=== PATIENT | female | born 1950 | race Caucasian/White ===

== ENCOUNTER 2018-01-15 02:00 | Inpatient (IN) | payer OTHER ==
[2018-01-15] MEDS ORDERED: MORPHINE 4 MG/ML SYR ONE ×4 (02:17→07:07)
[2018-01-15] MEDS ORDERED: FAMOTIDINE 20 MG/2 ML VIAL IV ONE (02:17)
[2018-01-15] MEDS ORDERED: ONDANSETRON 4 MG/2 ML VIAL ONE ×2 (02:17→03:10)
[2018-01-15] MEDS ORDERED: NA CHLORIDE 0.9% 500 ML ONE (02:38)
[2018-01-15] MEDS ORDERED: PROMETHAZINE 25 MG/ML VIAL ONE ×2 (02:38→05:01)
[2018-01-15 02:55] LABS: Absolute Lymphocytes (CBC) 4.7 K/uL (0.7-4.9); Absolute Monocytes 1.1 K/uL (0.1-1.3); Absolute Neutrophil 10.6 K/uL (1.8-8.0); Basophils % 0.5 % (0-1.3); Hematocrit 40.5 % (36.0-45.0); Lymphocytes % 27.6 % (15.3-44.8); MCH 27.3 pg (27.0-35.0); MPV 9.6 fL (7.6-11.3); Monocytes % 6.5 % (3.3-12.3)
[2018-01-15 03:06] LABS: Potassium 3.4 mEq/L (3.6-5.0)
[2018-01-15 03:12] LABS: Albumin 4.5 g/dL (3.2-5.5); Bilirubin Direct 0.1 mg/dL (0-0.2); Bilirubin Total 0.4 mg/dL (0.3-1.2); Magnesium 2.1 mg/dL (1.8-2.5); Protein, Total 8.3 g/dL (6.0-8.3)
[2018-01-15] MEDS ORDERED: NA CHLORIDE 0.9% 1,000 ML ONE (03:27)
[2018-01-15 04:55] LABS: Urine Blood TRACE (NEG); Urine Glucose NEGATIVE (NEG); Urine Protein 1+ (NEG); Urine Specific Gravity 1.025 (1.005-1.030)
--- NOTE | 2018-01-15 05:24 | EDPHYS ---
Physician Documentation [facility] Name: Marycruz Crawford Age: 67 yrs Sex: Female : 1950 Arrival Date: 01/15/2018 Time: 02:01 Bed 16 Private MD: ED Physician Francisco Jones HPI: 01/15 02:46 This 67 yrs old Female presents to ER via Wheelchair with complaints of cp Abdominal Pain, Diarrhea, Vomiting. 02:48 The patient presents with abdominal pain in the left lower quadrant. Onset: The cp symptoms/episode began/occurred last night. Associated signs and symptoms: Pertinent positives: nausea, vomiting, and diarrhea, Pertinent negatives: blood in stools, chest pain, constipation, fever, vomiting blood. Historical: - Allergies: 02:31 PENICILLINS; lp1 - Home Meds: 02:31 trazodone 50 mg Oral tab nightly [Active]; [place] 10-325 mg Oral tab 1 tab every 6 hours lp1 [Active]; losartan 50 mg oral tab 1 tab once daily [Active]; cyclobenzaprine 10 mg Oral tab 1 tab 2 times per day [Active]; simvastatin 40 mg Oral tab nightly [Active]; Lorazepam Oral [Active]; - PMHx: 02:31 chronic back pain; Hypertension; Hyperlipidemia; Panic Attacks; lp1 - PSHx: 02:31 Tubal ligation; lp1 - Immunization history:: Adult Immunizations up to date. - Social history:: Smoking status: Patient/guardian denies using tobacco. ROS: 02:50 Constitutional: Positive for poor PO intake, Negative for body aches, chills, fever. cp 02:50 Eyes: Negative for injury, pain, redness, and discharge. cp 02:50 ENT: Negative for drainage from ear(s), ear pain, sore throat, difficulty swallowing, difficulty handling secretions. 02:50 Cardiovascular: Negative for chest pain, palpitations. 02:50 Respiratory: Negative for cough, shortness of breath, wheezing. 02:50 Abdomen/GI: Positive for abdominal pain, nausea, vomiting, diarrhea, of the left lower quadrant, Negative for constipation, hematemesis, black/tarry stool, rectal bleeding. 02:50 Back: Negative for radiated pain. 02:50 : Negative for urinary symptoms. 02:50 Skin: Negative for cellulitis, rash. 02:50 Neuro: Negative for altered mental status, headache, weakness. 02:50 All other systems are negative. Exam: 02:35 ECG was reviewed by the Attending Physician. cp 02:55 Constitutional: The patient appears in no acute distress, alert, awake, cp non-diaphoretic, non-toxic, well developed, well nourished. 02:55 Head/Face: Normocephalic, atraumatic. cp 02:55 Eyes: Periorbital structures: appear normal, Pupils: equal, round, and reactive to light and accomodation, Conjunctiva: normal, no exudate, no injection, Sclera: no appreciated abnormality, Lids and lashes: appear normal, bilaterally. 02:55 ENT: External ear(s): are unremarkable, Nose: is normal, Mouth: Lips: moist, Oral mucosa: moist, Posterior pharynx: Airway: no evidence of obstruction, patent, Uvula: midline, swelling, is not appreciated, erythema, is not appreciated, exudate, is not appreciated. 02:55 Neck: ROM/movement: is normal, is supple, without pain, no range of motions limitations, no meningismus, no nuchal rigidity. 02:55 Chest/axilla: Inspection: normal, Palpation: is normal, no crepitus, no tenderness. 02:55 Cardiovascular: Rate: normal, Rhythm: regular, Pulses: Pulses are 2+ in right radial artery and left radial artery. Edema: is not appreciated, JVD: is not appreciated. 02:55 Respiratory: the patient does not display signs of respiratory distress, Respirations: normal, no use of accessory muscles, no retractions, no splinting, no tachypnea, Breath sounds: are clear throughout, no decreased breath sounds, no stridor, no wheezing. 02:55 Abdomen/GI: Inspection: abdomen appears normal, Bowel sounds: active, all quadrants, Palpation: soft, in all quadrants, severe abdominal tenderness, in the left lower quadrant, rebound tenderness, voluntary guarding, is elicited in the left lower quadrant. 02:55 Back: pain, is absent, ROM is normal. 02:55 Skin: cellulitis, is not appreciated, no rash present. 02:55 Neuro: Orientation: to person, place \T\ time. Mentation: lucid, able to follow commands, Cerebellar function: is grossly normal, Motor: moves all fours, strength is normal, Sensation: no obvious gross deficits. Vital Signs: 02:28 BP 195 / 95; Pulse 81; Resp 18; Temp 98.0(A); Pulse Ox 99% on R/A; Weight 71.21 kg; lp1 Height 5 ft. 1 in. (154.94 cm); Pain 10/10; 03:28 BP 185 / 92; Pulse 62; Resp 14; Pulse Ox 97% ; Pain 10/10; bs1 04:28 BP 185 / 108; Pulse 69; Resp 14; Pulse Ox 99% on 2 lpm NC; Pain 0/10; bs1 04:44 BP 191 / 96; Pulse 60; Resp 14; Pulse Ox 95% on 2 lpm NC; Pain 10/10; bs1 05:00 BP 176 / 116; Pulse 96; Resp 14; Pulse Ox 96% on R/A; Pain 10/10; bs1 05:30 BP 197 / 113; Pulse 76; Resp 13; Pulse Ox 100% ; Pain 8/10; bs1 06:13 BP 157 / 95; Pulse 92; Resp 14; Pulse Ox 98% on R/A; Pain 9/10; bs1 02:28 Body Mass Index 29.66 (71.21 kg, 154.94 cm) lp1 MDM: 02:04 Patient medically screened. cp 03:00 Differential diagnosis: appendicitis, bowel obstruction, diverticulitis, gastritis, GI cp Bleed, pancreatitis, Peptic Ulcer Disease, Perf. Duodenal Ulcer, Perf. Gastric Ulcer, Pyelonephritis, Ureterolithiasis, urinary tract infection. 06:19 Differential diagnosis: cholecystitis. Data reviewed: vital signs, nurses notes. tw4 Counseling: I had a detailed discussion with the patient and/or guardian regarding: the historical points, exam findings, and any diagnostic results supporting the discharge/admit diagnosis. Physician consultation: German Darby MD regarding admission, patient's condition, and will see patient in ED. Admission orders: after a detailed discussion of the patient's condition and case, the admit orders are written by me. Other consultation: Dr devine consulted in regards to patients condition. 01/15 02:13 Order name: Amylase, Serum; Complete Time: 03:29 cp 01/15 02:13 Order name: Basic Metabolic Panel; Complete Time: 03:29 cp 01/15 03:29 Interpretation: Normal except: K 3.4; GLUC 138; CRE 1.12; GFR 49. cp 01/15 02:13 Order name: CBC with Diff; Complete Time: 03:11 cp 01/15 03:11 Interpretation: Normal except: WBC 17.0; MCHC 31.7; NEUT A 10.6. cp 01/15 02:13 Order name: Creatinine for Radiology; Complete Time: 03:11 cp 01/15 03:30 Interpretation: Abnormal: CRE 1.10; GFR 50. cp 01/15 02:13 Order name: Hepatic Function; Complete Time: 03:29 cp 01/15 03:29 Interpretation: Normal except: SGOT 48; ALK 176; GLOB 3.8. cp 01/15 02:13 Order name: Lipase; Complete Time: 03:29 cp 01/15 03:29 Interpretation: LIP 19; Reviewed. cp 01/15 02:13 Order name: Urine Microscopic Only; Complete Time: 06:26 cp 01/15 02:13 Order name: CT Abd/Pelvis - W/Contrast cp 01/15 02:14 Order name: XRAY Chest (1 view) cp 01/15 02:14 Order name: Troponin I; Complete Time: 06:26 cp 01/15 02:14 Order name: Magnesium; Complete Time: 03:29 cp 01/15 03:46 Order name: Urine Dipstick--Ancillary (enter results); Complete Time: 05:03 rg2 01/15 05:03 Interpretation: Normal except: UBLD TRACE; UPROT 1+. tw4 01/15 07:17 Order name: Chest Single View XRAY lp1 01/15 08:37 Order name: RAD EDMS 01/15 02:13 Order name: IV Saline Lock; Complete Time: 02:45 cp 01/15 02:13 Order name: Labs collected and sent; Complete Time: 02:45 cp 01/15 02:13 Order name: Urine Dipstick-Ancillary (obtain specimen); Complete Time: 03:46 cp 01/15 02:14 Order name: EKG; Complete Time: 02:29 cp 01/15 02:14 Order name: EKG - Nurse/Tech; Complete Time: 02:32 cp EC:35 Rate is 70 beats/min. Rhythm is regular. [place] interval is normal. QRS interval is normal. cp QT interval is normal. Interpreted by me. Reviewed by me. Administered Medications: 02:39 Drug: Zofran 4 mg Route: IVP; Site: left antecubital; bs1 06:50 Follow up: Response: No adverse reaction bs1 02:39 Drug: Pepcid 20 mg Route: IVP; Site: left antecubital; bs1 06:51 Follow up: Response: No adverse reaction bs1 02:39 Drug: morphine 4 mg Route: IVP; Site: left antecubital; bs1 06:51 Follow up: Response: No adverse reaction bs1 02:45 Drug: NS 0.9% 500 ml Route: IV; Rate: bolus; Site: left antecubital; bs1 06:50 Follow up: IV Status: Completed infusion bs1 02:45 Drug: Phenergan 25 mg Route: IVP; Site: left antecubital; bs1 06:49 Follow up: Response: No adverse reaction bs1 03:12 Drug: Zofran 4 mg Route: IVP; Site: left antecubital; bs1 06:49 Follow up: Response: No adverse reaction bs1 03:32 Drug: NS 0.9% 1000 ml Route: IV; Rate: 125 ml/hr; Site: left antecubital; bs1 06:48 Follow up: IV Status: Infusion continued upon admission bs1 06:50 Follow up: IV Status: Completed infusion bs1 03:32 Drug: morphine 4 mg Route: IVP; Site: left antecubital; bs1 06:49 Follow up: Response: No adverse reaction bs1 05:10 Drug: morphine 4 mg Route: IVP; Site: left antecubital; bs1 07:11 Follow up: Response: No adverse reaction bs1 05:10 Drug: Phenergan 12.5 mg Route: IVP; Site: left antecubital; bs1 07:11 Follow up: Response: No adverse reaction bs1 05:36 Drug: hydrALAZINE 10 mg Route: IV; Rate: bolus; Site: left antecubital; bs1 06:23 Follow up: IV Status: Completed infusion bs1 06:15 Drug: Flagyl 500 mg Volume: 100 ml; Route: IVPB; Rate: 200 ml/hr; Infused Over: 30 bs1 mins; Site: left antecubital; 06:48 Follow up: IV Status: Completed infusion bs1 06:18 Drug: LevaQUIN 500 mg Volume: 100 ml; Route: IVPB; Infused Over: 60 mins; Site: left bs1 antecubital; 06:48 Follow up: IV Status: Completed infusion bs1 06:25 Not Given (Physician Discretion): Fleet Enema 133 ml [place] once bs1 06:25 Not Given (Physician Discretion; dr baer): Polyethylene Glycol 8.5 grams PO once; mix bs1 into 4-8 oz. of any hot/cold/room temp. beverage and drink immediately 07:47 Not Given (Physician Discretion; Provider notified of previous morphine doses. ): ae1 morphine 4 mg IVP once 07:55 Drug: fentaNYL (PF) 25 mcg Route: IVP; Site: left antecubital; ae1 08:54 Follow up: Response: Pain is unchanged, physician notified; Receiving nurse notified of ae1 no decrease in pain. Disposition: 06:16 Co-signature as Attending Physician, Francisco Jones MD I agree with the assessment and tw4 plan of care. Disposition: 01/15/18 05:24 Hospitalization ordered by German Darby for Inpatient Admission. Preliminary diagnosis are Constipation, Vomiting, unspecified. - Bed requested for Telemetry/MedSurg (Inpatient). - Status is Inpatient Admission. ae1 - Condition is Stable. - Problem is new. - Symptoms are unchanged. UTI on Admission? No Signatures: Dispatcher [employer] EDMS Sallie Christie RN RN lp1 Altaf Mckenzie PA PA cp Garcia, Cindy, RN RN Brian Campos RN RN ae1 Nicole Oliver RN RN bs1 Francisco Jones MD MD tw4
--- NOTE | 2018-01-15 05:24 | ER ---
Nurse's Notes [facility] Name: Marycruz Crawford Age: 67 yrs Sex: Female : 1950 Arrival Date: 01/15/2018 Time: 02:01 Bed 16 Private MD: Diagnosis: Constipation;Vomiting, unspecified Presentation: 01/15 02:26 Presenting complaint: Patient states: Nausea/vomiting x4 hours; Patient actively lp1 vomiting during triage; States pain to LLQ, tender to touch on palpation; states cramping. Transition of care: patient was not received from another setting of care. Onset of symptoms was January 14, 2018 at 22:30. Care prior to arrival: None. 02:26 Method Of Arrival: Wheelchair lp1 02:26 Acuity: ALBERTO 3 lp1 Triage Assessment: 02:31 General: Appears uncomfortable, Behavior is anxious, crying, restless. Pain: Complains lp1 of pain in left lower quadrant. GI: Pt is actively vomiting bile. Historical: - Allergies: 02:31 PENICILLINS; lp1 - Home Meds: 02:31 trazodone 50 mg Oral tab nightly [Active]; [place] 10-325 mg Oral tab 1 tab every 6 hours lp1 [Active]; losartan 50 mg oral tab 1 tab once daily [Active]; cyclobenzaprine 10 mg Oral tab 1 tab 2 times per day [Active]; simvastatin 40 mg Oral tab nightly [Active]; Lorazepam Oral [Active]; - PMHx: 02:31 chronic back pain; Hypertension; Hyperlipidemia; Panic Attacks; lp1 - PSHx: 02:31 Tubal ligation; lp1 - Immunization history:: Adult Immunizations up to date. - Social history:: Smoking status: Patient/guardian denies using tobacco. Screenin:32 Abuse screen: Denies threats or abuse. Denies injuries from another. Nutritional lp1 screening: No deficits noted. Tuberculosis screening: No symptoms or risk factors identified. Fall Risk None identified. Assessment: 02:50 General: Appears uncomfortable, ill, Behavior is anxious, crying. Pain: Complains of bs1 pain in bilateral lower abdomen Pain does not radiate. Pain currently is 10 out of 10 on a pain scale. Quality of pain is described as stabbing. Neuro: Level of Consciousness is awake, alert, Oriented to person, place, time, Regional Branch Manager are equal bilaterally Reports blurred vision difficulty swallowing dizziness, headache numbness. Cardiovascular: Denies chest pain, palpitations, shortness of breath, Heart tones S1 S2 present Capillary refill < 3 seconds Patient's skin is warm and dry. Respiratory: Airway is patent Trachea midline Respiratory effort is even, unlabored, Respiratory pattern is regular, symmetrical, Breath sounds are clear bilaterally. GI: Abdomen is round non-distended, Bowel sounds hypoactive in right upper quadrant, left upper quadrant, right lower quadrant and left lower quadrant Abdomen is tender to palpation X 4 quads. Reports lower abdominal pain, diarrhea, nausea, vomiting. : Reports incontinence. EENT: No deficits noted. No signs and/or symptoms were reported regarding the EENT system. Derm: No deficits noted. No signs and/or symptoms reported regarding the dermatologic system. Musculoskeletal: Circulation, motion, and sensation intact. Capillary refill < 3 seconds, Range of motion: intact in all extremities. 03:00 Reassessment: Applied 2L NC, patient desat to low 80's on room air, hx of sleep apnea bs1 and given morphine. Will continue to monitor. 03:20 Reassessment: patient states she is still in pain and unable to drink oral contrast for bs1 CT, informed Provider. 04:20 Reassessment: No changes from previously documented assessment. Patient and/or family bs1 updated on plan of care and expected duration. Pain level reassessed. Patient is alert, oriented x 3, equal unlabored respirations, skin warm/dry/pink. Pending results of CT scan. 05:05 Reassessment: Informed Dr Jones that patients blood pressure is 191/96, 100% on 2L NC, bs1 89 heart rate. C/O pain, yelling out, dry heaving. Dr gave verbal order to give 12.5mg of phenergan and 4mg of Morphine. Order received. 06:25 Reassessment: Patient and/or family updated on plan of care and expected duration. Pain bs1 level reassessed. Patient is alert, oriented x 3, equal unlabored respirations, skin warm/dry/pink. Patient states symptoms have not improved. 06:30 Reassessment: Martin(son)- [phone], Grandson ([phone]). bs1 06:46 Reassessment: Patient on bedside commode having a bowel movement. Patient having watery bs1 stools and x3 golf ball size hard stool. 07:10 Reassessment: at bedside discussing plan of care. Received verbal order for 4 ae1 mg IVP Morphine. Patient states it is too difficult to sit in bed and wishes to sit on the bedside commode at this time. Per , administer pain medication and assist back to bed. 07:12 Reassessment: Report given to HARRIET Torres, patient alert and oriented, still c/o pain, bs1 still on bedside commode. Pending hospitalist to put in orders. 07:39 Reassessment: Patient is struggling to pass stool on bedside commode. Assisted patient ae1 remove hard stool. 08:30 Reassessment: Patient continues to struggle to pass stool, assisted patient to remove ae1 hard stool digitally. 3 large "balls" od stool removed. 08:30 Reassessment: Spoke to via telephone, notified Dr. Darby of previous morphine ae1 doses, new orders received, additional dose of morphine cancelled per . Vital Signs: 02:28 BP 195 / 95; Pulse 81; Resp 18; Temp 98.0(A); Pulse Ox 99% on R/A; Weight 71.21 kg; lp1 Height 5 ft. 1 in. (154.94 cm); Pain 10/10; 03:28 BP 185 / 92; Pulse 62; Resp 14; Pulse Ox 97% ; Pain 10/10; bs1 04:28 BP 185 / 108; Pulse 69; Resp 14; Pulse Ox 99% on 2 lpm NC; Pain 0/10; bs1 04:44 BP 191 / 96; Pulse 60; Resp 14; Pulse Ox 95% on 2 lpm NC; Pain 10/10; bs1 05:00 BP 176 / 116; Pulse 96; Resp 14; Pulse Ox 96% on R/A; Pain 10/10; bs1 05:30 BP 197 / 113; Pulse 76; Resp 13; Pulse Ox 100% ; Pain 8/10; bs1 06:13 BP 157 / 95; Pulse 92; Resp 14; Pulse Ox 98% on R/A; Pain 9/10; bs1 02:28 Body Mass Index 29.66 (71.21 kg, 154.94 cm) lp1 ED Course: 02:01 Patient arrived in ED. ds1 02:04 Altaf Mckenzie PA is PHCP. cp 02:04 Francisco Jones MD is Attending Physician. cp 02:13 Nicole Oliver, HARRIET is Primary Nurse. bs1 02:28 Triage completed. lp1 02:28 Arm band placed on left wrist. lp1 02:32 Patient has correct armband on for positive identification. Placed in gown. Bed in low lp1 position. Call light in reach. Pulse ox on. NIBP on. 02:45 X-ray completed. Portable x-ray completed in exam room. Patient tolerated procedure kw well. 02:46 XRAY Chest (1 view) In Process Unspecified. EDMS 02:46 Inserted saline lock: 22 gauge in left antecubital area, using aseptic technique. bs1 04:12 CT Abd/Pelvis - W/Contrast In Process Unspecified. EDMS 05:22 German Darby MD is Hospitalizing Provider. tw4 06:15 NGT: inserted 14 Fr. via right nare. verified placement of air over stomach, verified bs1 return of gastric contents, to intermittent suction. Returned gastric contents. Patient tolerated well. 06:41 Radiology exam delayed due to PT NOT ABLE TO DO EXAM AT THIS TIME. NURSE WILL CALL WHEN kw READY. 07:16 Radiology exam delayed due to PT STILL UNABLE TO DO EXAM, NURSE STATES NEED TO GIVE jb2 PAIN MEDS AND PT STILL ON BEDSIDE COMMODE. 08:12 X-ray completed. Portable x-ray completed in exam room. Patient tolerated procedure sw well. 08:46 No provider procedures requiring assistance completed. Patient admitted, IV remains in ae1 place. Administered Medications: 02:39 Drug: Zofran 4 mg Route: IVP; Site: left antecubital; bs1 06:50 Follow up: Response: No adverse reaction bs1 02:39 Drug: Pepcid 20 mg Route: IVP; Site: left antecubital; bs1 06:51 Follow up: Response: No adverse reaction bs1 02:39 Drug: morphine 4 mg Route: IVP; Site: left antecubital; bs1 06:51 Follow up: Response: No adverse reaction bs1 02:45 Drug: NS 0.9% 500 ml Route: IV; Rate: bolus; Site: left antecubital; bs1 06:50 Follow up: IV Status: Completed infusion bs1 02:45 Drug: Phenergan 25 mg Route: IVP; Site: left antecubital; bs1 06:49 Follow up: Response: No adverse reaction bs1 03:12 Drug: Zofran 4 mg Route: IVP; Site: left antecubital; bs1 06:49 Follow up: Response: No adverse reaction bs1 03:32 Drug: NS 0.9% 1000 ml Route: IV; Rate: 125 ml/hr; Site: left antecubital; bs1 06:48 Follow up: IV Status: Infusion continued upon admission bs1 06:50 Follow up: IV Status: Completed infusion bs1 03:32 Drug: morphine 4 mg Route: IVP; Site: left antecubital; bs1 06:49 Follow up: Response: No adverse reaction bs1 05:10 Drug: morphine 4 mg Route: IVP; Site: left antecubital; bs1 07:11 Follow up: Response: No adverse reaction bs1 05:10 Drug: Phenergan 12.5 mg Route: IVP; Site: left antecubital; bs1 07:11 Follow up: Response: No adverse reaction bs1 05:36 Drug: hydrALAZINE 10 mg Route: IV; Rate: bolus; Site: left antecubital; bs1 06:23 Follow up: IV Status: Completed infusion bs1 06:15 Drug: Flagyl 500 mg Volume: 100 ml; Route: IVPB; Rate: 200 ml/hr; Infused Over: 30 bs1 mins; Site: left antecubital; 06:48 Follow up: IV Status: Completed infusion bs1 06:18 Drug: LevaQUIN 500 mg Volume: 100 ml; Route: IVPB; Infused Over: 60 mins; Site: left bs1 antecubital; 06:48 Follow up: IV Status: Completed infusion bs1 06:25 Not Given (Physician Discretion): Fleet Enema 133 ml [place] once bs1 06:25 Not Given (Physician Discretion; dr baer): Polyethylene Glycol 8.5 grams PO once; mix bs1 into 4-8 oz. of any hot/cold/room temp. beverage and drink immediately 07:47 Not Given (Physician Discretion; Provider notified of previous morphine doses. ): ae1 morphine 4 mg IVP once 07:55 Drug: fentaNYL (PF) 25 mcg Route: IVP; Site: left antecubital; ae1 08:54 Follow up: Response: Pain is unchanged, physician notified; Receiving nurse notified of ae1 no decrease in pain. Intake: Outcome: 05:24 Decision to Hospitalize by Provider. tw4 08:45 Patient left the ED. ae1 08:46 Admitted to Tele accompanied by nurse, via stretcher, room 425, with chart, Report ae1 called to Luma , receiving nurse. 08:46 Condition: stable 08:46 Instructed on the need for admit, Demonstrated understanding of instructions. Signatures: Dispatcher [employer] EDMS Chintan Alcantar Demi ds1 Ilsa Bacon Laura, RN RN lp1 Mily Keller Corey, PA PA cp Elliott, Andrea, RN RN ae1 Nicole Oliver RN RN bs1 Francisco Jones MD MD tw4 Corrections: (The following items were deleted from the chart) 05:13 03:20 Reassessment: patient states she is still in pain and unable to drinl oral bs1 contrast for CT, informed Provider. bs1
[2018-01-15] MEDS ORDERED: HYDRALAZINE HCL 20 MG/ML VIAL ONE (05:34)
[2018-01-15] MEDS ORDERED: FLEET ENEMA ADULT PR ONE (05:39)
[2018-01-15] MEDS ORDERED: METRONIDAZOLE 500mg IVPB 500 MG/100 ML BAG IV ONE (05:40)
[2018-01-15] MEDS ORDERED: Levofloxacin500mg IV 500 MG/100 ML BAG IV ONE (05:40)
[2018-01-15 05:47] LABS: Urine Bacteria <20 /HPF (<20); Urine Culture Reflex Order NOT NEEDED; Urine RBC <5 /HPF (NONE SEEN)
[2018-01-15] MEDS ORDERED: MAGNESIUM HYDROXIDE 8% 30 ML PO PRN (06:34)
[2018-01-15] MEDS ORDERED: clonazePAM 1 MG TAB PO PRN (06:37)
--- NOTE | 2018-01-15 06:55 | EKG ---
Test Date: 2018-01-15 Test Time: 02:27:04 Balance Sheet Analyst: JACINTO MEASUREMENT RESULTS: Intervals: Rate: 70 MS: 160 QRSD: 94 QT: 402 QTc: 434 Hillister: P: 45 MS: 160 QRS: -14 T: -20 INTERPRETIVE STATEMENTS: Normal sinus rhythm Moderate voltage criteria for LVH, may be normal variant Borderline ECG Compared to ECG 03/07/2015 19:08:35 Left ventricular hypertrophy now present Electronically Signed On 01-15-18 06:54:51 CDT by Maximo Salazar
[2018-01-15] MEDS: NA CHLORIDE 0.9% 1,000 ML IV SCH ×2 (07:00→17:36)
[2018-01-15] MEDS ORDERED: MINERAL OIL 30 ML UCUP FT ONE (07:37)
--- NOTE | 2018-01-15 07:45 | P.HP ---
Certification for Inpatient Patient admitted to: Inpatient With expected LOS: >2 Midnights Patient will require the following post-hospital care: None Practitioner: I am a practitioner with admitting privileges, knowledge of patient current condition, hospital course, and medical plan of care. Services: Services provided to patient in accordance with Admission requirements found in Title 42 Section 412.3 of the Code of Federal Regulations Patient History Date of Service: 01/15/18 Reason for admission: Abdominal pain/severe constipation History of Present Illness: Patient is a 67-year-old female with a history of chronic pain and takes 4-6 hydrocodone for pain daily. Patient states she also has irritable bowel syndrome. She waxes between constipation and diarrhea. Over the last few days she was having a hard time moving her bowels. They she started having diarrhea. She felt as if there was a hard stool that was not able to pass. She came into the emergency room for further evaluation. In the emergency room she had a CT of the abdomen and pelvis which revealed a colitis and severe constipation. Patient had a lot of stool. Emergency room physician spoke with surgery who recommended GI consultation. Patient was not given any medications except for pain in the emergency room. Will go ahead and start her on some mineral oil to the NG tube the will see if this helps err pass her stool. She may need to be disimpacted. Obtain most of the history while she was sitting on the bedside commode and she refused to get up because the pain was so severe. She has had an NG-tube placed which is to low intermittent wall suctioning. I asked the emergency room nurses to give her some pain medication and to get her back in bed to where she can be better assessed. Allergies aspirin Allergy (Intermediate, Verified 03/09/15 02:36) Nausea/Vomiting Penicillins Allergy (Intermediate, Verified 03/09/12 19:24) Hives Home Medications: Benzonatate [Tessalon Perle*] 200 mg PO TIDP PRN 03/08/15 Cyclobenzaprine [Flexeril*] 10 mg PO BEDTIME PRN PRN 03/08/15 Escitalopram [Lexapro*] 10 mg PO BEDTIME 03/08/15 Levothyroxine [Synthroid*] 50 mcg PO DAILY 03/08/15 Lisinopril [Prinivil*] 20 mg PO DAILY 03/08/15 Losartan Potassium [Cozaar*] 50 mg PO DAILY 03/08/15 Benzonatate [Tessalon Perle*] 200 mg PO TID PRN #60 cap 03/11/15 Clonazepam [Klonopin*] 1 mg PO BIDP PRN #60 tab 03/11/15 Levofloxacin [Levaquin] 500 mg PO DAILY #5 tab 03/11/15 Methylprednisolone [Medrol] 4 mg PO DAILY #1 tab 03/11/15 Promethazine HCl/Codeine [Promethazine-Codeine Syrup] 5 ml PO Q6HP PRN #150 syrup 03/11/15 - Past Medical/Surgical History Diabetic: No -: depression -: HTN -: hypothyroidism -: Irritable bowel syndrome -: tonsillectomy -: nose sx -: tubal ligation - Family History Father Family History: Reviewed- Non-Contributory - Social History Smoking Status: Never smoker Alcohol use: No CD- Drugs: No Review of Systems 10-point ROS is otherwise unremarkable Physical Examination - Vital Signs Temperature: 98 F Blood Pressure: 140/70 Pulse: 120 Respirations: 18 Pulse Ox (%): 96 - Physical Exam General: Alert, In no apparent distress, Oriented x3 HEENT: Atraumatic, Normocephalic Neck: Supple, 2+ carotid pulse no bruit, JVD not distended, No Thyromegaly, No LAD Respiratory: Clear to auscultation bilaterally, Normal air movement Cardiovascular: Regular rate/rhythm, Normal S1 S2, No murmurs Gastrointestinal: Normal bowel sounds, Hypoactive, Soft and benign, Non- distended, No tenderness Musculoskeletal: No clubbing, No swelling, No erythema Integumentary: No rashes, No erythema, No warmth Neurological: Normal speech, Normal strength at 5/5 x4 extr, Normal tone, Sensation intact, Cranial nerves 3-12 intact, Normal affect Lymphatics: No axilla or inguinal lymphadenopathy - Studies Laboratory Data (last 24 hrs) 01/15/18 02:30: Troponin I 0.06 H 01/15/18 02:30: Creatinine 1.10 H 01/15/18 02:30: WBC 17.0 H, Hgb 12.8, Hct 40.5, Plt Count 356 01/15/18 02:30: Sodium 137, Potassium 3.4 L, BUN 9, Creatinine 1.12 H, Glucose 138 H, Magnesium 2.1, Total Bilirubin 0.4, AST 48 H, ALT 35, Alkaline Phosphatase 176 H, Amylase 63, Lipase 19 L Assessment & Plan - Problems (Diagnosis) (1) Colitis Current Visit: Yes Status: Acute (2) Fecal impaction of colon Current Visit: Yes Status: Acute (3) Abdominal pain Current Visit: Yes Status: Acute (4) Irritable bowel syndrome Current Visit: Yes Status: Acute (5) Chronic pain disorder Current Visit: Yes Status: Acute - Plan 1. Continue with IV hydration 2. Continue with IV antibiotics 3. Continue with pain control 4. NPO 5. GI & general surgery consultation; mineral oil placed per NG tube 6. Serial H&H, and we will monitor CBC, BMP, LFTs and lipase along with electrolytes. 7. GI and DVT prophylaxis - Advance Directives Does patient have a Living Will: No Does patient have a Durable POA for Healthcare: No - Code Status/Comfort Care Code Status Assessed: Yes Code Status: Full Code Critical Care: No Time Spent Managing PTS Care (In Minutes): 50
--- NOTE | 2018-01-15 08:29 | RAD REPORT ---
EXAM DESCRIPTION: CT - Abdomen Pelvis W Contrast - 01/15/2018 5:55 am CLINICAL HISTORY: Abdominal pain, left lower quadrant pain A preliminary written report was provided at the time of the study, and the report was reviewed prio r to final dictation. COMPARISON: CT study March 2015 TECHNIQUE: Biphasic, helical CT imaging of the abdomen and pelvis was performed following 100 ml non -ionic IV contrast. No oral contrast administered. All CT scans are performed using dose optimization technique as appropriate and may include automated exposure control or mA/KV adjustment according to patient size. FINDINGS: No suspicious findings in the lung bases. No pericardial effusion. Liver shows a mild fatty infiltration pattern with no focal liver lesion. Spleen and pancreas without acute finding. Gallbladder and biliary tree are also without suspicious finding. Symmetric renal function is seen with no hydronephrosis or suspicious renal mass. No pyelonephritis o r acute finding. No urinary bladder abnormality. Uterus and ovaries show no suspicious findings. N o adrenal abnormality. No gastric dilatation or gastric wall thickening. Acute small bowel process is not identified. The ap pendix is prominent at 8 mm. No adjacent inflammatory stranding. Appendicitis or other acute appendix process is not suspected. The patient has a large stool volume throughout the colon. Colon is disten ded but not abnormally dilated. The large stool volume pattern is not significantly different from th e comparison study. There is circumferential wall thickening at the ascending-hepatic flexure junctio n. There is a trace amount of stranding in the adjacent fat. Focal colitis is favored over malignancy . Follow-up colonoscopy after medical management and an adequate bowel cleansing will likely be neede d. No free air, free fluid or pneumatosis. No other areas of focal inflammatory stranding. No hernia, m ass or bulky lymphadenopathy. No suspicious bony findings. IMPRESSION: Circumferential wall thickening of the colon at the ascending hepatic flexure junction. A focal mild colitis is favored over peristalsis artifact or colon mass. Follow-up colonoscopy after medical management an adequate bowel cleansing would be recommended. The appendix is prominent but appendicitis is not suspected. Patient overall has a large stool volume distending the colon. This is probably a chronic constipatio n. A similar pattern was seen in 2014. No acute process. Mild fatty infiltration of the liver.
--- NOTE | 2018-01-15 08:31 | RAD REPORT ---
EXAM DESCRIPTION: RAD - Chest Single View - 01/15/2018 2:46 am CLINICAL HISTORY: Abdominal pain, nausea and vomiting COMPARISON: February 2015 TECHNIQUE: AP portable chest image was obtained 0240 hours . FINDINGS: Lung volumes are low. This accentuates central vasculature and lung markings. No periphera l lung parenchymal process seen and failure or volume overload are not suspected. Trachea is midline. Heart and vasculature are normal. No measurable pleural effusion and no pneumothorax. No gross bony abnormality seen. No acute aortic findings suspected. IMPRESSION: No acute cardiopulmonary process. Shallow inspiration accentuates heart, vasculature and lung markings.
--- NOTE | 2018-01-15 08:37 | RAD REPORT ---
EXAM DESCRIPTION: RAD - Abdomen Single View - 01/15/2018 8:12 am CLINICAL HISTORY: Nasogastric tube placement COMPARISON: None. FINDINGS: NG tube is in place in the left upper quadrant. The tip and side port of the tubing are wi thin the stomach. No bowel obstruction or free air. No suspicious finding in the chest or upper abdomen. IMPRESSION: Satisfactory positioning of NG tube.
[2018-01-15] MEDS ORDERED: LEVOTHYROXINE SOD 0.075 MG TAB PO SCH (09:00)
[2018-01-15] MEDS: ENOXAPARIN 40 MG/0.4 ML SQ SCH (09:00)
[2018-01-15] MEDS: ONDANSETRON 4 MG/2 ML VIAL IV PRN ×2 (09:22→17:36)
[2018-01-15] MEDS ORDERED: PNEUMOCOCCAL VACCINE 0.5 ML IMVAC ONE (11:00)
[2018-01-15] MEDS: LEVOTHYROXINE SOD 0.05 MG TABLET PO SCH (11:22)
[2018-01-15] MEDS: LOSARTAN POTASSIUM 50 MG TABLET PO SCH (11:22)
[2018-01-15] MEDS ORDERED: CYCLOBENZAPRINE 10 MG TAB PO PRN (11:23)
--- NOTE | 2018-01-15 11:31 | P.PN ---
Subjective Date of Service: 01/15/18 Primary Care Provider: Dr. Conner Chief Complaint: Abdominal pain/severe constipation Subjective: Other (Patient has gone to the bathroom multiple times. Patient reports pain but able to ambulate.) Physical Examination - Vital Signs Temperature: 98.6 F Blood Pressure: 118/94 Pulse: 123 Respirations: 18 Pulse Ox (%): 95 - Physical Exam General: Alert, Cooperative HEENT: Atraumatic Neck: Supple Respiratory: Clear to auscultation bilaterally Cardiovascular: Normal pulses, Regular rate/rhythm Gastrointestinal: Normal bowel sounds, Soft and benign, Non-distended, Tenderness (Patient reports pain with palpation everywhere. Pain seems to be out of proportion at times) Musculoskeletal: No erythema, No tenderness, No warmth Integumentary: No tenderness/swelling, No erythema, No warmth, No cyanosis Neurological: Normal speech, Normal strength at 5/5 x4 extr, Normal tone, Abnormal affect (Patient appears very anxious) - Studies Laboratory Data (last 24 hrs) 01/15/18 02:30: Troponin I 0.06 H 01/15/18 02:30: Creatinine 1.10 H 01/15/18 02:30: WBC 17.0 H, Hgb 12.8, Hct 40.5, Plt Count 356 01/15/18 02:30: Sodium 137, Potassium 3.4 L, BUN 9, Creatinine 1.12 H, Glucose 138 H, Magnesium 2.1, Total Bilirubin 0.4, AST 48 H, ALT 35, Alkaline Phosphatase 176 H, Amylase 63, Lipase 19 L Medications List Reviewed: Yes Assessment & Plan - Problems (Diagnosis) (1) Hypertension Current Visit: Yes Status: Chronic Plan: Medications reviewed and restarted. Qualifiers: Hypertension type: essential hypertension Qualified Code(s): I10 - Essential (primary) hypertension (2) Hypothyroidism Current Visit: Yes Status: Chronic Plan: Will continue with her medication. Will check tsh and free T4. Qualifiers: Hypothyroidism type: unspecified Qualified Code(s): E03.9 - Hypothyroidism , unspecified (3) GERD (gastroesophageal reflux disease) Current Visit: Yes Status: Suspected Plan: Will provide PPI. GI consulted to further evaluate Qualifiers: Esophagitis presence: esophagitis presence not specified Qualified Code(s) : K21.9 - Gastro-esophageal reflux disease without esophagitis (4) Abdominal pain Onset Date: 01/15/18 Current Visit: Yes Status: Acute Plan: Abdominal pain likely related to colitis with chronic constipation secondary to pain medication. Patient with history of chronic pain and IBS. Surgery and GI consulted. Patient has NG tube in place. Patient provided mineral oil. Will monitor stool. Patient also on IV antibiotic therapy and IV fluids. Will recheck x-ray in the morning. Will try to limit pain medication. Qualifiers: Abdominal location: generalized Qualified Code(s): R10.84 - Generalized abdominal pain (5) Chronic pain disorder Onset Date: 01/15/18 Current Visit: Yes Status: Chronic Plan: Will provide medication. Patient takes hydrocodone on a regular basis. Patient likely needs to seek chronic pain management as an outpatient. (6) Colitis Onset Date: 01/15/18 Current Visit: Yes Status: Acute Plan: Colitis suspected. Will continue with IV antibiotic therapy and medication. Will monitor closely. GI consulted along with surgery. Await further recommendation. (7) Fecal impaction of colon Onset Date: 01/15/18 Current Visit: Yes Status: Acute Plan: Patient provided medication. Will monitor closely. Likely from chronic pain medication (8) Irritable bowel syndrome Onset Date: 01/15/18 Current Visit: Yes Status: Chronic Plan: Patient reports a history of IBS. GI consulted. Will continue with above plan of care. Qualifiers: Irritable bowel syndrome type: with constipation Qualified Code(s): K58.1 - Irritable bowel syndrome with constipation (9) Hypokalemia Onset Date: 03/08/15 Current Visit: No Status: Acute Plan: Will monitor and replace appropriately. Replacement protocol in place. (10) Dehydration Current Visit: Yes Status: Acute Plan: Will continue IV fluids. Will monitor and adjust appropriately. Replacement protocol in place. (11) Acute renal injury Current Visit: Yes Status: Acute Plan: Likely from volume depletion. Will continue with IV fluids. Will monitor and adjust appropriately. Discharge Plan: Home Plan to discharge in: 72 Hours Time Spent Managing Pts Care (In Minutes): 55
[2018-01-15] MEDS: METRONIDAZOLE 500mg IVPB 500 MG/100 ML BAG IV SCH ×3 (14:03→23:35)
[2018-01-15] MEDS: FENTANYL CITR 100 MCG/2 ML IV PRN ×2 (17:41→20:49)
--- NOTE | 2018-01-15 20:09 | P.CNS ---
Date of Consult: 01/15/18 PC: I was asked to see this 67-year-old female regards to abdominal pain. HPC: Patient presents emergency room with severe abdominal pain for diagnosis and treatment last night. She says that she has been having increasing pain and discomfort in her abdomen. Has not had a bowel movement for a few days. Takes chronic pain medicine for her back. PMH: Hypertension, chronic pain, esophageal reflux PSHx: An 80 SOC: Allergic to aspirin and penicillin SYS REVIEW: No cough, wheeze, shortness of breath. States that she still having occasional episodes of abdominal pain. Prior to this event had been well. No urinary complaint O/E awake vital stable HEENT: Within normal limits Chest: Chest movement equal bilaterally ABD: Soft nontender no guarding or rebound LOCO: Intact DATA: CT scan shows a lot of fecal material particular around the hepatic flexure. IMPRESSION: Abdominal pain with constipation most likely secondary to narcotic use and dehydration PLAN: Patient having bowel movements issues been in the hospital. Has been receiving IV fluids as well as some mineral oil. This will most likely resolve and not require surgical intervention. She will then be followed up by GI. Also pain management physician.
[2018-01-15] MEDS ORDERED: ESCITALOPRAM 20 MG TAB PO SCH (21:00)
[2018-01-16] MEDS: NA CHLORIDE 0.9% 1,000 ML IV SCH ×3 (03:00→23:00)
[2018-01-16] MEDS ORDERED: Levofloxacin500mg IV 500 MG/100 ML BAG IV SCH (05:00)
[2018-01-16] MEDS: METRONIDAZOLE 500mg IVPB 500 MG/100 ML BAG IV SCH ×3 (05:10→17:38)
[2018-01-16] MEDS ORDERED: NA CHLORIDE 0.9% 500 ML IV ONE ×3 (07:32→11:14)
[2018-01-16 07:38] LABS: Absolute Monocytes 2.1 K/uL (0.1-1.3); Absolute Neutrophil 11.9 K/uL (1.8-8.0); Basophils % 0.4 % (0-1.3); Eosinophils % 0.1 % (0-4.4); Hematocrit 48.9 % (36.0-45.0); Lymphocytes % 21.9 % (15.3-44.8); MCH 27.8 pg (27.0-35.0); MCV 85.6 fL (80-100); MPV 10.8 fL (7.6-11.3); Monocytes % 11.6 % (3.3-12.3); RBC Red Blood Cell Count 5.72 M/uL (3.86-4.86)
[2018-01-16 08:52] LABS: Albumin 3.3 g/dL (3.2-5.5); Bilirubin Total 1.2 mg/dL (0.3-1.2); Magnesium 1.9 mg/dL (1.8-2.5); Phosphorus 2.6 mg/dL (2.5-4.3); Protein, Total 6.4 g/dL (6.0-8.3); Thyroid Stimulating Hormone 3.19 uIU/mL (0.34-5.60)
[2018-01-16] MEDS: LOSARTAN POTASSIUM 50 MG TABLET PO SCH (09:00)
[2018-01-16] MEDS: LEVOTHYROXINE SOD 0.05 MG TABLET PO SCH ×2 (09:00→11:09)
--- NOTE | 2018-01-16 10:27 | P.PN ---
Subjective Date of Service: 01/16/18 Primary Care Provider: Dr. Conner Chief Complaint: Abdominal pain/severe constipation Subjective: Other (Patient reported pain to the abdomen. She has had several bowel movements.) Physical Examination - Vital Signs Temperature: 101.4 F Blood Pressure: 116/71 Pulse: 125 Respirations: 20 Pulse Ox (%): 96 - Physical Exam General: Alert, Cooperative HEENT: Atraumatic Neck: Supple Respiratory: Clear to auscultation bilaterally, Normal air movement Cardiovascular: Abnormal pulses (Sinus tachycardia noted) Gastrointestinal: Normal bowel sounds, Soft and benign, Non-distended, No masses , No rebound, No guarding, Tenderness (Patient still complains of pain with palpation. Pain seems to be at a proportion.) Musculoskeletal: No tenderness, No warmth Integumentary: No erythema, No warmth, No cyanosis Neurological: Normal speech, Normal strength at 5/5 x4 extr, Normal tone - Studies Medications List Reviewed: Yes Assessment & Plan - Problems (Diagnosis) (1) Hypertension Current Visit: Yes Status: Chronic Plan: Will provide medication IV as needed. Qualifiers: Hypertension type: essential hypertension Qualified Code(s): I10 - Essential (primary) hypertension (2) Hypothyroidism Current Visit: Yes Status: Chronic Plan: Will continue with her medication. Qualifiers: Hypothyroidism type: unspecified Qualified Code(s): E03.9 - Hypothyroidism , unspecified (3) GERD (gastroesophageal reflux disease) Current Visit: Yes Status: Suspected Plan: Will continue with PPI. Qualifiers: Esophagitis presence: esophagitis presence not specified Qualified Code(s) : K21.9 - Gastro-esophageal reflux disease without esophagitis (4) Abdominal pain Onset Date: 01/15/18 Current Visit: Yes Status: Acute Plan: Abdominal pain likely related to colitis with chronic constipation secondary to pain medication. Patient with fever. Patient still with pain but and passing stool. Will check abdominal x-ray. Will provide IV fluid bolus. Will obtain blood cultures. Patient pulled out her NG tube. Abdomen feels soft. Will need to monitor closely. Will continue with serial abdominal examinations. Will discuss with surgery and GI. Patient on IV antibiotic therapy. Will continue with this. Will consider advancing diet to clears if x-ray shows improvement. Qualifiers: Abdominal location: generalized Qualified Code(s): R10.84 - Generalized abdominal pain (5) Chronic pain disorder Onset Date: 01/15/18 Current Visit: Yes Status: Chronic Plan: Will provide medication. Patient has chronic constipation due to her pain medication. This will need to be addressed at discharge. (6) Colitis Onset Date: 01/15/18 Current Visit: Yes Status: Acute Plan: Colitis suspected. CT scan reviewed. Patient pulled out her NG tube. Patient still with pain but passing stool. Will check x-ray today. Surgery evaluated the patient yesterday. Will monitor serial abdominal examinations. If x-ray inconclusive may need to repeat CT scan did white count elevated. Patient currently on IV antibiotic therapy. Patient currently NPO. Will continue with IV fluids. (7) Fecal impaction of colon Onset Date: 01/15/18 Current Visit: Yes Status: Acute Plan: Patient provided medication. Will monitor closely. Likely from chronic pain medication (8) Irritable bowel syndrome Onset Date: 01/15/18 Current Visit: Yes Status: Chronic Plan: Patient reports a history of IBS. GI consulted. Will continue with above plan of care. Qualifiers: Irritable bowel syndrome type: with constipation Qualified Code(s): K58.1 - Irritable bowel syndrome with constipation (9) Hypokalemia Onset Date: 03/08/15 Current Visit: No Status: Acute Plan: Will monitor and replace appropriately. Replacement protocol in place. (10) Dehydration Current Visit: Yes Status: Acute Plan: Will continue IV fluids. Will monitor and adjust appropriately. Replacement protocol in place. (11) Acute renal injury Current Visit: Yes Status: Acute Plan: Likely from volume depletion. Will continue with IV fluids. Will monitor and adjust appropriately. Will consult Nephrology. Discharge Plan: Home Plan to discharge in: Greater than 2 days Time Spent Managing Pts Care (In Minutes): 55
[2018-01-16] MEDS ORDERED: LORazepam 2 MG/ML VIAL IV PRN (10:31)
[2018-01-16] MEDS: ENOXAPARIN 40 MG/0.4 ML SQ SCH (11:03)
[2018-01-16] MEDS: ACETAMINOPHEN 500 MG TAB PO PRN (11:09)
--- NOTE | 2018-01-16 11:12 | RAD REPORT ---
EXAM DESCRIPTION: RAD - Abdomen Acute Series - 01/16/2018 10:29 am CLINICAL HISTORY: Abdominal pain COMPARISON: 01/15/2018 CT study FINDINGS: There is a generalized paucity of bowel gas noted. The NG tube has been removed. No eviden ce of pneumoperitoneum. The lungs appear grossly clear. The heart is normal in size. No pathologic ca lcifications. No fracture or aggressive marrow lesion. IMPRESSION: Negative study.
[2018-01-16 11:32] LABS: Arterial Blood Carboxyhemoglob 1.2 % (0-1.5); Blood O2 Saturation 95.8 % (92-98.5)
[2018-01-16] MEDS ORDERED: NOREPINEPHRINE 4 MG in D5W 250 ML IV PRN (12:02)
--- NOTE | 2018-01-16 12:58 | RAD REPORT ---
EXAM DESCRIPTION: CT - Head Brain Wo Cont - 01/16/2018 12:49 pm CLINICAL HISTORY: Altered consciousness. COMPARISON: 03/07/2015 TECHNIQUE: All CT scans are performed using dose optimization technique as appropriate and may inclu de automated exposure control or mA/KV adjustment according to patient size. FINDINGS: Mild motion degradation is present, limiting the quality of the study.No gross evidence of acute bleed, hydrocephalus or extra-axial fluid collection.No areas of brain edema or evidence of mi dline shift. The paranasal sinuses and mastoids are clear. The calvarium is intact. IMPRESSION: No acute intracranial abnormality.
[2018-01-16] MEDS ORDERED: NA CHLORIDE 0.9% 1,000 ML IV ONE (13:34)
[2018-01-16 14:35] LABS: Urine Appearance CLOUDY; Urine Blood 3+ (NEG); Urine Color YELLOW; Urine Glucose NEGATIVE (NEG); Urine Protein 1+ (NEG); Urine Specific Gravity >=1.030 (1.005-1.030); Urine pH 5.5 (5.0-7.0)
[2018-01-16 14:47] LABS: UR CREAT 225.6 mg/dL; Urine Protein/Creatinine Ratio 0.41 (<0.15)
[2018-01-16] MEDS: ONDANSETRON 4 MG/2 ML VIAL IV PRN ×2 (14:56→20:46)
[2018-01-16 14:59] LABS: Urine Bilirubin 1+ (NEG); Urine Microscopic Reflex ORDER UMIC
[2018-01-16 15:09] LABS: Urine Bacteria 20-50 /HPF (<20); Urine Culture Reflex Order REFLEXED; Urine Mucus 2+ /HPF (NONE SEEN)
[2018-01-16 15:10] LABS: Urine Coarse Granular Casts 0-5 /LPF (NONE SEEN)
--- NOTE | 2018-01-16 15:29 | ECHO ---
HEIGHT: 5 ft 1 in WEIGHT: 157 lb 0 oz DATE OF STUDY: 01/16/[address]: Vladislav Herbert DO 2-DIMENSIONAL: YES M.MODE: YES DOPPLER: YES COLOR FLOW: YES TDS: NO PORTABLE: NO DEFINITY: NO BUBBLE STUDY: NO DIAGNOSIS: HYPOTENSION CARDIAC HISTORY: CATHERIZATION: NO SURGERY: NO PROSTHETIC VALVE: NO PACEMAKER: NO MEASUREMENTS (cm) DIASTOLIC (NORMALS) SYSTOLIC (NORMALS) IVSd 1.2 (0.6-1.2) LA Diam 2.7 (1.9-4.0) LVEF 63% LVIDd 3.1 (3.5-5.7) LVIDs 2.1 (2.0-3.5) %FS 33% LVPWd 1.0 (0.6-1.2) Ao Diam 2.7 (2.0-3.7) 2 DIMENSIONAL ASSESSMENT: RIGHT ATRIUM: NORMAL LEFT ATRIUM: NORMAL RIGHT VENTRICLE: NORMAL LEFT VENTRICLE: NORMAL TRICUSPID VALVE: NORMAL MITRAL VALVE: NORMAL PULMONIC VALVE: NORMAL AORTIC VALVE: SCLEROSIS PERICARDIAL EFFUSION: NONE AORTIC ROOT: NORMAL LEFT VENTRICULAR WALL MOTION: DOPPLER/COLOR FLOW: IMPAIRED LEFT VENTRICULAR RELAXATION. MILD AORTIC AND TRICUSPID REGURGITATION. NO AORTIC STENOSIS. NORMAL RIGHT VENTRICULAR SYSTOLIC PRESSURE. COMMENTS: NORMAL LEFT VENTRICULAR EJECTION FRACTION. AORTIC SCLEROSIS WITH NO AORTIC STENOSIS. MILD AORTIC AND TRICUSPID REGURGITATION. IMPAIRED LEFT VENTRICULAR RELAXATION. TECHNOLOGIST: Roxanne MEDRANO
--- NOTE | 2018-01-16 16:00 | P.INFCA ---
Sepsis Focused Assessment - Sepsis Screen Result Severe Sepsis: Positive Septic Shock: Positive - Evaluation Current stage of sepsis: Severe sepsis - Vital Signs Reviewed: Yes Heart rate: 114 Blood Pressure: 87/55 Respiratory Rate: 19 O2 Sat by Pulse Oximetry: 96 - Examination Heart: Other (mild tachycardia) Lungs: Clear bilaterally Peripheral pulse location: Femoral Capillary refill: <2 Seconds Skin examination: Normal turgor (Discussed with Surgery, Nephrology and GI. Will continue with medication, IV fluids and antibiotics. CT head negative. Will continue to monitor. )
--- NOTE | 2018-01-16 18:39 | CON ---
Date of Consultation: 01/16/2018 Additional Consulting Physician: Dr. Herbert. Reason For Consultation: Elevated BUN and creatinine, fluid management, hypotension, electrolyte imb alance. History Of Present Illness: This is a pleasant, 67-year-old female. All the information has been ob tained from the record as the patient has altered mental status. The patient came to the hospital ye sterday complaining from abdominal pain. The patient has a history of chronic abdominal pain with ir ritable bowel syndrome, start having some diarrhea and abdominal pain, took hydrocodone, denied takin g any nonsteroidal. The patient on arrival to the hospital found of stool impaction with abdominal p ain. The patient was admitted for further evaluation. Started on laxative. Today the patient devel oped hypotension with worsening mental status. For that reason, we have been consulted. Apparently yesterday, the patient had CT with contrast. On admission, creatinine 1.2, currently creatinine up t o 1.4, and the patient before admission currently on ANA ROSA inhibitor, lisinopril, and losartan. Curren tly blood pressure down to 90. There is no other insult in her medication list or in her history. Past Medical History: Include, 1.Hypertension. 2.Hypothyroidism. 3.Irritable bowel syndrome. 4.Depression. Allergies: TO ASPIRIN AND PENICILLIN. Home Medications: Include, 1.Tessalon. 2.Flexeril. 3.Citalopram. 4.Lisinopril 20 daily. 5.Losartan 50 daily. 6.Clonazepam. 7.Levaquin 500 daily. Past Surgical History: Include, 1.Tonsillectomy. 2.Tubal ligation. 3.Nose surgery. Family History: Not obtainable. Social History: Not obtainable. Review of Systems: Not obtainable. Physical Examination: General: When I saw the patient, the patient obtunded. Vital Signs: Blood pressure 92/60, pulse is 122. T-max 101.4. Chest: Clear to auscultation. Heart: S1, S2. Regular. Abdomen: Mild tenderness. No further guarding or rebound. Extremities: No edema. Neuro: The patient moves 4 extremities. Nonfocal, but poorly responsive. Laboratory Data: WBC 18, H and H 15.9/48.9, platelets 344. Sodium 138, potassium 4, bicarb 22, BUN 16, creatinine 1.4, calcium 9.1. On admission, potassium 3.4, creatinine 1.1. GFR of 49. Currently creatinine 1.4, GFR of 36. TSH of 3.1. Urinalysis, specific gravity of 1.025. WBC squamous cell of 20, osmolality 245, microal bumin 1.1. The patient had urine output of 100. Current Medication: In the hospital include, 1.Levaquin 500. 2.Metronidazole 500 t.i.d. 3.Lovenox. 4.Lorazepam. 5.Zofran. 6.Levothyroxine. 7.IV fluid. CT abdomen and pelvis, stool impaction, possible colitis. No hydronephrosis. Assessment And Plan: 1.Acute kidney injury multifactorial, poor perfusion. Acute tubular necrosis. 2.Double blockage with the ANA ROSA inhibitor and ARB. 3.Contrast-induced nephropathy. 4.Toxic acute tubular necrosis secondary to sepsis. 5.Obstructive uropathy has been ruled out with a CT yesterday. I going to continue aggressive hydra tion on the patient. We will bolus the patient with another liter, and we will maintain the blood pr essure systolic above 100 and MAP above 65. The patient need pressor, okay with Levophed. 6.I am going to go ahead and send for protein creatinine, and we will monitor the patient. 7.We will keep holding all blood pressure medication. 8.Shock. Possible secondary to sepsis, secondary to colitis. Agree with current antibiotic, and we will continue fluid resuscitation. We will monitor. 9.Colitis. Stool impaction as by primary. 10.Altered mental status. Possible encephalopathy metabolic secondary to sepsis. The patient is go ing to get CT. We will follow up. 11.Hypokalemia, resolved. Case discussed with Dr. Herbert, Thank you Dr. Herbert for allowing us to participate in the care of yo ur patient. RED/NAM Voice ID: [id number] Report ID: [id number]
--- NOTE | 2018-01-16 19:45 | P.PN ---
Date of Service: 01/16/18 S.: Patient is still obtunded and confused. Was transferred to the ICU for altered mental status. A CT scan of the head is negative. She is being treated as acute sepsis. O.: The abdomen is soft, nontender, with particular attention paid to the right upper quadrant. Abdominal films show no evidence of any free air A.: Patient is still obtunded since yesterday. The main however appears to be nonsurgical and benign. P: No obvious source of sepsis is seen. A repeat CT scan may be useful of the abdomen and pelvis without contrast tomorrow if no improvement.
[2018-01-16] MEDS: FENTANYL CITR 100 MCG/2 ML IV PRN ×2 (20:46→23:32)
[2018-01-17] MEDS: METRONIDAZOLE 500mg IVPB 500 MG/100 ML BAG IV SCH ×4 (00:01→17:14)
[2018-01-17] MEDS: NA CHLORIDE 0.9% 1,000 ML IV SCH ×3 (01:22→19:00)
[2018-01-17] MEDS: FENTANYL CITR 100 MCG/2 ML IV PRN ×7 (05:16→22:05)
[2018-01-17] MEDS: ONDANSETRON 4 MG/2 ML VIAL IV PRN ×3 (05:16→20:13)
[2018-01-17 07:27] LABS: Absolute Lymphocytes (CBC) 2.2 K/uL (0.7-4.9); Absolute Monocytes 1.5 K/uL (0.1-1.3); Absolute Neutrophil 11.7 K/uL (1.8-8.0); Basophils % 0.5 % (0-1.3); Hematocrit 38.6 % (36.0-45.0); Lymphocytes % 14.4 % (15.3-44.8); MCH 27.6 pg (27.0-35.0); MCV 85.7 fL (80-100); MPV 11.1 fL (7.6-11.3); Monocytes % 9.6 % (3.3-12.3)
--- NOTE | 2018-01-17 07:32 | RAD REPORT ---
EXAM DESCRIPTION: RAD - Chest Single View - 01/17/2018 6:16 am CLINICAL HISTORY: Device placement PICC line placement COMPARISON: 01/15/2018 FINDINGS: A PICC line has been inserted with its tip in the superior vena cava. The lungs appear clear of acute infiltrate. The heart is normal size. The mediastinum is prominent. IMPRESSION: PICC line with its tip in the superior vena cava Prominence of the mediastinum may represent tortuous vessels accentuated by technique and positioning . As an aneurysm and lymphadenopathy can have this appearance PA and lateral chest series is recommen ded.
[2018-01-17 07:53] LABS: Albumin 2.4 g/dL (3.2-5.5); Magnesium 1.8 mg/dL (1.8-2.5); Phosphorus 2.5 mg/dL (2.5-4.3); Potassium 3.8 mEq/L (3.6-5.0)
[2018-01-17] MEDS: ENOXAPARIN 40 MG/0.4 ML SQ SCH (08:08)
[2018-01-17] MEDS: ACETAMINOPHEN 500 MG TAB PO PRN ×2 (08:09→13:59)
--- NOTE | 2018-01-17 08:28 | P.PN ---
Subjective Date of Service: 01/17/18 Primary Care Provider: Dr. Conner Chief Complaint: Abdominal pain/severe constipation Subjective: Improving (Patient clinically improved. Patient is alert and cooperative. Patient reports pain to the abdomen but this is disproportionate.) Physical Examination - Vital Signs Temperature: 97 F Blood Pressure: 140/91 Pulse: 108 Respirations: 19 Pulse Ox (%): 98 - Physical Exam General: Alert, In no apparent distress, Cooperative HEENT: Atraumatic Neck: Supple Respiratory: Clear to auscultation bilaterally, Normal air movement Cardiovascular: Normal pulses, Regular rate/rhythm Gastrointestinal: Normal bowel sounds, Soft and benign, Non-distended, Tenderness (Patient reports pain that is disproportionate. When palpated no significant irritation noted.) Musculoskeletal: No erythema, No tenderness, No warmth Integumentary: No tenderness/swelling, No erythema, No warmth, No cyanosis Neurological: Normal speech, Normal strength at 5/5 x4 extr, Normal tone, Normal affect Lymphatics: No axilla or inguinal lymphadenopathy - Studies Medications List Reviewed: Yes Assessment & Plan - Problems (Diagnosis) (1) Hypertension Current Visit: Yes Status: Chronic Plan: Will add metoprolol. Will discontinue Lambert and Arb inhibitor that the patient was previously taking due to acute renal failure. Patient much improved since yesterday. Patient had septic shock but improved with IV fluids. Septic shock likely from severe dehydration, acute renal failure, and possible UTI with colitis. Will hold blood pressure medication if systolic less than 110. Await culture results. Will discuss again with nephrology, surgery and GI Qualifiers: Hypertension type: essential hypertension Qualified Code(s): I10 - Essential (primary) hypertension (2) Hypothyroidism Current Visit: Yes Status: Chronic Plan: Will continue with her medication. Qualifiers: Hypothyroidism type: unspecified Qualified Code(s): E03.9 - Hypothyroidism , unspecified (3) GERD (gastroesophageal reflux disease) Current Visit: Yes Status: Suspected Plan: Will continue with PPI. Qualifiers: Esophagitis presence: esophagitis presence not specified Qualified Code(s) : K21.9 - Gastro-esophageal reflux disease without esophagitis (4) Abdominal pain Onset Date: 01/15/18 Current Visit: Yes Status: Acute Plan: Abdominal pain likely related to colitis with chronic constipation secondary to pain medication. Patient much improved. Will start clear liquid diet and advance to low residue. Will start docusate. Will provide medication for constipation as needed. Will continue with IV fluids. Patient much improved since yesterday. Pain seems to be disproportionate. Will monitor closely. Will ambulate patient. Will consider transferring to the floor if improved. Qualifiers: Abdominal location: generalized Qualified Code(s): R10.84 - Generalized abdominal pain (5) Chronic pain disorder Onset Date: 01/15/18 Current Visit: Yes Status: Chronic Plan: Will provide medication. Patient has chronic constipation due to her pain medication. Will limit pain medication. (6) Colitis Onset Date: 01/15/18 Current Visit: Yes Status: Acute Plan: Colitis suspected. CT scan reviewed. Will start with a clear liquid diet today. Will monitor closely. Will continue with above plan of care. (7) Fecal impaction of colon Onset Date: 01/15/18 Current Visit: Yes Status: Acute Plan: This appears improved. Patient has had several bowel movements. Will continue with above plan of care. (8) Irritable bowel syndrome Onset Date: 01/15/18 Current Visit: Yes Status: Chronic Plan: Patient reports a history of IBS. GI consulted. Will continue with above plan of care. Qualifiers: Irritable bowel syndrome type: with constipation Qualified Code(s): K58.1 - Irritable bowel syndrome with constipation (9) Hypokalemia Onset Date: 03/08/15 Current Visit: No Status: Acute Plan: Will monitor and replace appropriately. Replacement protocol in place. (10) Dehydration Current Visit: Yes Status: Acute Plan: Patient received several boluses of IV fluids. Renal function improved. Will continue with IV fluids. Will continue with above plan of care. (11) Acute renal injury Current Visit: Yes Status: Acute Plan: Likely from volume depletion, ATN with poor perfusion, contrast induced nephropathy and secondary to medication from LAMBERT/Arb inhibitors. Renal function improved. Patient received several boluses of fluid. Will continue with IV fluids. Will continue monitor renal function. Will discuss with nephrology (12) Septic shock Current Visit: Yes Status: Acute Plan: This has improved with IV fluids. Patient appears to be at her baseline. Will continue with above plan of care. Await urine/blood/stool culture. Patient on antibiotic therapy. (13) UTI (urinary tract infection) Current Visit: Yes Status: Suspected Plan: Suspect UTI. Will continue with antibiotic therapy. Await urine culture. Discharge Plan: Home Plan to discharge in: 48 Hours Time Spent Managing Pts Care (In Minutes): 55
[2018-01-17 08:31] LABS: Anisocytosis 1+; Blood Morphology Comment NOTED (NOT SEEN); Platelet Estimate ADEQ; Poikilocytosis 1+
[2018-01-17] MEDS: DOCUSATE NA 100 MG CAP PO SCH (08:32)
[2018-01-17] MEDS ORDERED: Levofloxacin 250mg IV 250 MG/50 ML BAG IV SCH (09:00)
[2018-01-17] MEDS ORDERED: MAGNESIUM SULFATE 1 gm IVPB 1 GM/100 ML BAG IV ONE (10:54)
[2018-01-17] MEDS ORDERED: Levofloxacin 250mg IV 250 MG/50 ML BAG IV ONE (11:00)
[2018-01-17] MEDS ORDERED: KCL 20 MEQ/100 mL IVPB 20 MEQ/100 ML BAG IV SCH (11:00)
[2018-01-17] MEDS ORDERED: NA CHLORIDE 0.9% 1,000 ML IV ONE (11:18)
--- NOTE | 2018-01-17 15:02 | RAD REPORT ---
EXAM DESCRIPTION: RAD - Abdomen 1 View (KUB) - 01/17/2018 2:41 pm CLINICAL HISTORY: Abdominal pain COMPARISON: CT January 15 FINDINGS: Air is present filling but not dilating the stomach. Air is seen within right-side of the colon. Patient has multiple distended to mildly dilated small bowel loops in the left side mid and lo wer abdomen. This is new from the prior imaging. No free air or pneumatosis. No suspicious calcificat ions. No significant bony findings IMPRESSION: Multiple mildly dilated left-sided abdomen small bowel loops. This is new from the prior CT study. No free air or pneumatosis.
[2018-01-17] MEDS: PROMETHAZINE 25 MG/ML VIAL IV PRN (16:22)
--- NOTE | 2018-01-17 16:40 | PN ---
Date of Progress Note: 01/17/2018 Subjective: The patient was admitted with severe constipation, abdominal pain, developed shock yeste rday. Had fluid resuscitation. The patient had acute kidney injury, multifactorial, secondary to po or perfusion, ATN, ANA ROSA inhibitor, and contrast induced nephropathy. After fluid resuscitation, the p atient felt much better. The patient had multiple bowel movements yesterday. Blood pressure has bee n stabilized. Did not require any pressor. Physical Examination: Vital Signs: Blood pressure 112/78, pulse of 105, afebrile. Chest: Clear to auscultation. Heart: S1, S2. Systolic murmur. Abdomen: Mild tenderness. No guarding or rebound. Extremities: No edema. Laboratory Data: WBC 15.5, trending down, H and H 12.4/38.6. Sodium 141, potassium 3.8, bicarb 20, BUN 23, creatinine down to 1.2, GFR of 43, lactic acid down to 35. Calcium 7.8, phosphorous 2.5, mag nesium 1.8, albumin 2.4, corrected calcium is 9. Urinalysis, rbc of 10, wbc 5, protein creatinine 0. 4. Medications: Current medications the patient is on include: 1.Levaquin 250 daily. 2.Flagyl 500. 3.Lovenox. 4.Metoprolol 12.5. 5.Pantoprazole. 6.IV fluid normal saline 100 per hour. Assessment And Plan: 1.Acute kidney injury, multifactorial, secondary to poor perfusion, ATN, superimposed with ANA ROSA inhib itor and contrast on recovery phase. Nonoliguric. It looks to me still on the hypovolemia and dry s melissa. I am going to go ahead and continue hydration. We will bolus the patient with another 100 of n ormal saline and we will follow up. 2.Hypokalemia, hypomagnesemia. We will supplement. 3.Tachycardia. Blood pressure started to stabilize mostly it is secondary to dehydration. I am goi ng to continue metoprolol. We will bolus the patient. 4.Colitis. Continue current antibiotic. I adjusted the Levaquin to 500 given that GFR has been imp roved. 5.Altered mental status. Workup was negative mostly metabolic encephalopathy, recover. We will fol low up with the primary. RED/NAM Voice ID: [id number] Report ID: [id number]
[2018-01-17] MEDS: METOPROLOL TAR 25 MG TAB PO SCH (17:15)
[2018-01-17] MEDS: METOPROLOL TARTRATE 5 MG/5 ML INJ IV SCH (20:11)
--- NOTE | 2018-01-17 22:16 | RAD REPORT ---
EXAM DESCRIPTION: RAD - Abdomen 1 View (KUB) - 01/17/2018 10:04 pm CLINICAL HISTORY: NG tube placement COMPARISON: January 17 FINDINGS: NG tube is in place. Tip and side hole of the tube air in the right upper quadrant. Stomac h is decompressed. Positioning corresponds to distal stomach and/ or proximal duodenum. No abnormal b end or kink of the tubing. Prominent colon pattern is similar to study earlier in the day IMPRESSION: NG tube has been placed. Tip and side hole of the tubing are in the right upper quadrant within the stomach and/or proximal duodenum. Stomach is decompressed.
[2018-01-17] MEDS ORDERED: METOPROLOL TARTRATE 5 MG/5 ML INJ IV STA (23:59)
[2018-01-18] MEDS: METRONIDAZOLE 500mg IVPB 500 MG/100 ML BAG IV SCH ×5 (00:12→23:45)
[2018-01-18] MEDS: METOPROLOL TARTRATE 5 MG/5 ML INJ IV SCH ×3 (01:06→13:42)
[2018-01-18] MEDS: FENTANYL CITR 100 MCG/2 ML IV PRN ×2 (02:09→08:38)
[2018-01-18] MEDS: NA CHLORIDE 0.9% 1,000 ML IV SCH ×4 (02:17→19:10)
[2018-01-18] MEDS: HYDRALAZINE HCL 20 MG/ML VIAL IV PRN ×2 (02:17→11:13)
[2018-01-18] MEDS: METOPROLOL TAR 25 MG TAB PO SCH (06:00)
[2018-01-18] MEDS ORDERED: LEVOTHYROXINE SOD 0.05 MG TABLET PO SCH (06:00)
[2018-01-18] MEDS ORDERED: PANTOPRAZOLE 40MG TABLET PO SCH (06:30)
[2018-01-18 06:57] LABS: Absolute Lymphocytes (CBC) 1.8 K/uL (0.7-4.9); Absolute Monocytes 1.3 K/uL (0.1-1.3); Absolute Neutrophil 13.3 K/uL (1.8-8.0); Basophils % 0.2 % (0-1.3); Eosinophils % 0.2 % (0-4.4); MCH 27.9 pg (27.0-35.0); MCV 85.8 fL (80-100); MPV 10.2 fL (7.6-11.3); Monocytes % 7.8 % (3.3-12.3); RBC Red Blood Cell Count 4.31 M/uL (3.86-4.86)
[2018-01-18 07:31] LABS: Blood Morphology Comment NOT SEEN (NOT SEEN); Urine White Blood Cell Casts OK
[2018-01-18 07:32] LABS: Platelet Estimate ADEQ
[2018-01-18 07:36] LABS: Albumin 2.4 g/dL (3.2-5.5); Magnesium 1.9 mg/dL (1.8-2.5); Phosphorus 1.8 mg/dL (2.5-4.3); Potassium 3.9 mEq/L (3.6-5.0)
[2018-01-18] MEDS: DOCUSATE NA 100 MG CAP PO SCH (08:33)
[2018-01-18] MEDS: Levofloxacin500mg IV 500 MG/100 ML BAG IV SCH (08:39)
[2018-01-18] MEDS: ENOXAPARIN 40 MG/0.4 ML SQ SCH (08:44)
[2018-01-18] MEDS: SODIUM CHLORIDE 0.9% 10ML INJ IV SCH ×2 (08:44→08:47)
[2018-01-18] MEDS: LEVOTHYROXINE SODIUM 100 MCG VIAL IV SCH (08:45)
[2018-01-18] MEDS: PANTOPRAZOLE 40 MG INJ IV SCH (08:45)
--- NOTE | 2018-01-18 10:53 | P.PN ---
Subjective Date of Service: 01/18/18 Primary Care Provider: Dr. Conner Chief Complaint: Abdominal pain/severe constipation Subjective: Improving (Patient without any significant nausea and vomiting this morning. NG tube in place. No abdominal pain noted. Patient seems to be alert. ) Physical Examination - Vital Signs Temperature: 97.3 F Blood Pressure: 159/96 Pulse: 97 Respirations: 23 Pulse Ox (%): 97 - Physical Exam General: Alert, In no apparent distress, Oriented x2, Cooperative HEENT: Atraumatic, PERRLA Neck: Supple Respiratory: Clear to auscultation bilaterally, Normal air movement Cardiovascular: Normal pulses, Regular rate/rhythm Gastrointestinal: Hypoactive (Throughout), Soft and benign, Non-distended, No tenderness, No masses, No rebound, No guarding Musculoskeletal: No erythema, No tenderness, No warmth Integumentary: No tenderness/swelling, No erythema, No warmth, No cyanosis Neurological: Normal speech, Normal strength at 5/5 x4 extr, Normal tone, Normal affect - Studies Medications List Reviewed: Yes Assessment & Plan - Problems (Diagnosis) (1) Hypertension Current Visit: Yes Status: Chronic Plan: Will continue with metoprolol. Lambert and Arb inhibitor has been discontinued due to recent acute renal failure. Renal function now improved. Overall her mentation has improved. Will clamp NG tube. Will provide clear liquid. If the patient able is to tolerate this then will discontinue NG tube. Patient seems to be improved. Will continue to monitor closely. If stable then the patient can be transitioned to the floor. Will discuss with nephrology, surgery and GI. Will slowly advance diet if tolerated. So far blood cultures negative. Qualifiers: Hypertension type: essential hypertension Qualified Code(s): I10 - Essential (primary) hypertension (2) Hypothyroidism Current Visit: Yes Status: Chronic Plan: Will continue with her medication. Patient currently on IV medication. Will transition to oral once the patient is able to take intake well. Qualifiers: Hypothyroidism type: unspecified Qualified Code(s): E03.9 - Hypothyroidism , unspecified (3) GERD (gastroesophageal reflux disease) Current Visit: Yes Status: Suspected Plan: Will continue with PPI. Qualifiers: Esophagitis presence: esophagitis presence not specified Qualified Code(s) : K21.9 - Gastro-esophageal reflux disease without esophagitis (4) Abdominal pain Onset Date: 01/15/18 Current Visit: Yes Status: Acute Plan: Abdominal pain likely related to colitis with chronic constipation secondary to pain medication. This appears improved. Patient with NG tube. Will clamp NG tube and start clears. If tolerated will discontinue NG tube and advance diet as tolerated. Will monitor closely. Will provide medication for constipation. So far blood cultures negative. Will continue with IV antibiotic therapy. If stable the patient can be transition to the floor and start physical therapy. Anticipate discharge in the next 2-3 days. Qualifiers: Abdominal location: generalized Qualified Code(s): R10.84 - Generalized abdominal pain (5) Chronic pain disorder Onset Date: 01/15/18 Current Visit: Yes Status: Chronic Plan: Will provide medication as needed. Patient has chronic constipation due to her pain medication. Will limit pain medication. (6) Colitis Onset Date: 01/15/18 Current Visit: Yes Status: Acute Plan: Colitis suspected. CT scan reviewed. Continue with above plan of care. (7) Fecal impaction of colon Onset Date: 01/15/18 Current Visit: Yes Status: Acute Plan: This appears improved. Patient has had several bowel movements. Will continue with above plan of care. (8) Irritable bowel syndrome Onset Date: 01/15/18 Current Visit: Yes Status: Chronic Plan: Patient reports a history of IBS. GI consulted. Will discuss with GI for recommendations. Qualifiers: Irritable bowel syndrome type: with constipation Qualified Code(s): K58.1 - Irritable bowel syndrome with constipation (9) Hypokalemia Onset Date: 03/08/15 Current Visit: No Status: Acute Plan: Will monitor and replace appropriately. Replacement protocol in place. (10) Dehydration Current Visit: Yes Status: Acute Plan: Patient received several boluses of IV fluids. Renal function improved. Will continue with IV fluids. Will continue with above plan of care. (11) Acute renal injury Current Visit: Yes Status: Acute Plan: Likely from volume depletion, ATN with poor perfusion, contrast induced nephropathy and secondary to medication from LAMBERT/Arb inhibitors. Renal function improved. Will continue with IV fluids. Will monitor closely. Nephrology consulted. (12) Septic shock Current Visit: Yes Status: Acute Plan: This has improved with IV fluids. Patient appears to be at her baseline. Will continue with above plan of care. So far cultures are negative. Will continue with antibiotic coverage. (13) UTI (urinary tract infection) Current Visit: Yes Status: Suspected Plan: Suspect UTI. Await urine culture. Discharge Plan: Home Plan to discharge in: 48 Hours Time Spent Managing Pts Care (In Minutes): 55
[2018-01-18] MEDS ORDERED: MAGNESIUM SULFATE 1 gm IVPB 1 GM/100 ML BAG IV ONE (11:38)
--- NOTE | 2018-01-18 11:40 | CON ---
Date of Consultation: 01/15/2018 Reason For Consultation: Abdominal pain, nausea, vomiting. History Of Present Illness: Ms. Crawford is a 67-year-old female, who admits that she has chronic cons tipation. However, her chronic constipation has been getting progressively worse over the last of co uple months. She came to the hospital with intractable nausea and vomiting for a couple of days in d uration. Also, she has a generalized abdominal pain that she is unable to describe, but what I find from her is that this is probably crampy in nature. Shortly after coming to the hospital and coming to the floor, she had a "big bowel movement." After that, she felt weak. From the ER, she came with an NG tube. The vomitus consisted of mostly biliary material. She does take chronic narcotic and her constipation was in the past attributed to this. There is no history of hematemesis, melena, or hematochezia. She denies any fever, chills. Past Medical History: Hypertension, chronic pain syndrome. Past Surgical History: Not related to above. Family History: Denies any gastrointestinal malignancy in the family. Social History: Positive tobacco. Psych History: History of depression. Allergies: REVIEWED IN THE CHART. Medications: Reviewed in the chart. Review of Systems: General: She denies any change of appetite. Denies any weight loss, weight gain. No fever or chill s. GI: As elaborated above. Hepatologic: Denies any history of jaundice, hepatitis, any other liver problem in the past. Pulmonary: Some dry cough, however, no expectoration. No hemoptysis. Cardiac: Occasional palpitation, however, no orthopnea or dyspnea have been reported. Musculoskeletal: Positive arthralgia, myalgia, difficulty in ambulation in general. Dermatologic: No pruritus. No bleeding tendency. Neuropsychiatric: None. Neuroendocrine: None. Genitourinary: None. Physical Examination: General: Elderly female, at this time no other acute distress noted. Hemodynamic respiratory profil e within normal range. HEENT: Atraumatic, normocephalic. No temporal wasting. No facial wasting. No icterus. No signifi cant pallor noted. NG tube is revealing clear fluid. Neck: Supple. No lymphadenopathy. Trachea central in position. Chest: Clear to auscultation and percussion. Cardiovascular: Normal S1, S2. No S3, no S4. Abdomen: Soft, however, diffusely tender. No rebound tenderness. Bowel sounds are accentuated if a nything. No hepatomegaly. No splenomegaly. No succussion splash. No focal finding. Neurologic: Alert and oriented x3. Memory, mentation, judgment appears to be intact. Extremities: Upper and lower extremities are normal and symmetrical. Dermatologic: Normal. Diagnostic Data: Reviewed and analyzed, especially CT scan shows "changes of colitis," however, this could be due to edema or bowel impaction rather than anything else. Impression/plan/recommendations: Ms. Crawford is a 67-year-old female with chronic narcotic bowel and chronic constipation. She has lots of stool, probably this made her abdominal pain and nausea and vo miting. In this way, she has impracticality and obstruction. Her treatment supportive care to jenise nue. However, the patient had a big bowel movement, which is very foul smelling and is having the ur ge of another bowel movement as I am interviewing her. Hopefully after this, her acute problem will resolve. I have advised her to take MiraLAX 2 tablespoons full every other day. Also, if possible t itrate out the narcotics. Chronic pain management therapy might be of help in this case. Once her acute condition is better and impaction is resolved, she will need a colonoscopy to rule out any other associated cause. I have discussed with the patient regarding the indications, contraindications, possible complication s, alternatives of colonoscopy and anesthesia including, but not limited to the possibility of bleedi ng, perforation, tear, infection, sepsis, need for surgery, need for blood transfusion as a result of complication. She has good understanding. She is agreeable. URI/NAM Voice ID: [id number] Report ID: [id number]
[2018-01-18] MEDS: LORazepam 2 MG/ML VIAL IV PRN ×3 (11:46→23:13)
[2018-01-18] MEDS ORDERED: POTASSIUM PHOS IN 0.9 % NACL 15 MMOL/250 ML BAG IV ONE (12:00)
[2018-01-18] MEDS: HYDROCODONE/APAP 7.5/325 MG TAB PO PRN ×2 (16:54→22:55)
--- NOTE | 2018-01-19 01:20 | PN ---
Date of Progress Note: 01/18/2018 Subjective: The patient feeling better but still confused. Physical Examination: Vital Signs: When I saw the patient, blood pressure 146/82, pulse of 97. Chest: Clear to auscultation. Heart: S1, S2. Regular. Systolic murmur. Abdomen: Soft. Mild tenderness. No guarding no rebound. Extremities: No edema. Laboratory Data: WBC 16.4, H and H of 12.1/37 with platelet 227. Sodium 139, potassium 3.9, bicarb 18. BUN 12 creatinine 0.8, calcium 8.3, magnesium 1.8, phosphorus 1.9. Anion gap of 5. Albumin 2.4 . Current Medications: Current medications the patient on include Levaquin 500 daily, metronidazole 50 0 t.i.d., Lovenox, promethazine, metoprolol 12.5 b.i.d., lorazepam, pantoprazole IV fluid at 100. Assessment And Plan: 1.Acute kidney injury secondary to prerenal/contrast induced nephropathy, resolved. I going to decr ease IV fluid. 2.Hypertension, controlled, optimal. Continue current medication. 3.Colitis. Continue current antibiotic. We will follow up with GI. RED/NAM Voice ID: [id number] Report ID: [id number]
[2018-01-19] MEDS: FENTANYL CITR 100 MCG/2 ML IV PRN ×4 (03:33→17:49)
[2018-01-19] MEDS: TRAMADOL HCL 50 MG TAB PO PRN (03:35)
[2018-01-19] MEDS: LORazepam 2 MG/ML VIAL IV PRN ×2 (03:39→23:11)
[2018-01-19] MEDS: HYDRALAZINE HCL 20 MG/ML VIAL IV PRN ×2 (03:50→18:20)
[2018-01-19] MEDS: METRONIDAZOLE 500mg IVPB 500 MG/100 ML BAG IV SCH ×4 (05:16→23:19)
[2018-01-19] MEDS: ONDANSETRON 4 MG/2 ML VIAL IV PRN (05:29)
[2018-01-19 06:04] LABS: Albumin 2.4 g/dL (3.2-5.5); Potassium 3.5 mEq/L (3.6-5.0)
[2018-01-19 06:10] LABS: Absolute Lymphocytes (CBC) 1.9 K/uL (0.7-4.9); Absolute Monocytes 1.6 K/uL (0.1-1.3); Absolute Neutrophil 19.5 K/uL (1.8-8.0); Hematocrit 35.6 % (36.0-45.0); Lymphocytes % 8.3 % (15.3-44.8); MCH 28.1 pg (27.0-35.0); MCV 85.6 fL (80-100); MPV 10.2 fL (7.6-11.3); Monocytes % 6.9 % (3.3-12.3); RBC Red Blood Cell Count 4.16 M/uL (3.86-4.86)
[2018-01-19] MEDS ORDERED: POTASSIUM PHOS IN 0.9 % NACL 15 MMOL/250 ML BAG IV ONE (06:30)
[2018-01-19] MEDS: NA CHLORIDE 0.9% 1,000 ML IV SCH (08:27)
[2018-01-19] MEDS: ENOXAPARIN 40 MG/0.4 ML SQ SCH (08:38)
[2018-01-19] MEDS: PANTOPRAZOLE 40 MG INJ IV SCH (08:38)
[2018-01-19] MEDS: LEVOTHYROXINE SODIUM 100 MCG VIAL IV SCH (08:38)
[2018-01-19] MEDS: HYDROCODONE/APAP 7.5/325 MG TAB PO PRN ×3 (08:48→22:53)
[2018-01-19] MEDS: DOCUSATE NA 100 MG CAP PO SCH (08:49)
[2018-01-19] MEDS: Levofloxacin500mg IV 500 MG/100 ML BAG IV SCH (08:49)
[2018-01-19] MEDS: SODIUM CHLORIDE 0.9% 10ML INJ IV SCH (08:50)
[2018-01-19 09:11] LABS: Blood Morphology Comment NOT SEEN (NOT SEEN); Platelet Estimate ADEQ; Urine White Blood Cell Casts OK
--- NOTE | 2018-01-19 12:42 | PN ---
Date of Progress Note: 01/19/2018 Subjective: The patient is seen and examined. Chart reviewed and case discussed with RN. The patie nt is still having some abdominal pain. Otherwise, no nausea or vomiting. Blood pressure has been r unning on the high side. Review of Systems: Negative except as above. Medications: Reviewed. Physical Examination: Vital Signs: Temperature 98.7, heart rate 115, respirations 20, blood pressure 126/86, O2 96% on richa m air. General: Awake, alert, oriented x3, in some mild distress. Elderly female. CV: S1 and S2. Sinus tachycardia. No murmurs. Respiratory: Moving air well bilaterally. No wheezing. Abdomen: Soft, nontender, nondistended. Positive bowel sounds. Extremities: No clubbing, cyanosis, or edema. Neurologic: Nonfocal. Laboratory Data: Sodium 143, potassium 3.5, chloride 116, CO2 of 19, BUN 11, creatinine 0.78, glucos e 101, calcium 8.4, phosphorus 2, magnesium 2, albumin 2.4. WBC 23, H and H 11.7 and 35.6, platelets 238, neutrophils 84%. Urine culture, no growth. Blood cultures no growth to date. C. diff negativ e. Assessment And Plan: 1.Essential hypertension, uncontrolled. We will continue on metoprolol. 2.Colitis. The patient has had NG tube in, tolerating clear liquids. The patient has had bowel mov ements. We will discontinue NG tube and advance diet, okay with surgery. 3.Hypothyroidism. Continue replacement therapy. 4.Gastroesophageal reflux disease. Continue PPI. No esophagitis. 5.Chronic pain disorder. Pain control. 6.Abdominal pain, likely secondary to colitis, constipation. Chronic constipation due to chronic na rcotics. 7.Fecal impaction improving. 8.Irritable bowel syndrome. 9.Hypokalemia, replace and monitor. 10.Acute dehydration. The patient has received IV fluids. Kidney functions improved. We will cont inue to monitor. 11.Acute kidney injury, likely from volume depletion in ATN, contrast-induced nephropathy, ANA ROSA, ARBs , currently held. Nephrology consulted. 12.Septic shock, improved with IV fluids. White count still elevated. Blood cultures no growth to date. We will recheck procalcitonin in a.m. Lactate level has normalized. 13.Urinary tract infection. Culture shows no growth. We will continue antibiotics. Plan: Follow up on GI and Surgery recommendations. Physical therapy. Discontinue NG tube. Advance diet as tolerated. We will adjust blood pressure medications. /NAM Voice ID: [id number] Report ID: [id number]
[2018-01-19] MEDS: Ringers Lactate 1,000 ML IV SCH (16:24)
--- NOTE | 2018-01-19 16:51 | RAD REPORT ---
EXAM DESCRIPTION: RAD - Chest Single View - 01/19/2018 4:30 pm CLINICAL HISTORY: Altered mental status, decreased O2 saturation COMPARISON: Chest exam January 16 TECHNIQUE: AP portable chest image was obtained 1615 hours . FINDINGS: Lung volumes are very low. Lung base atelectasis is present probably not sufficient for an y significant desaturation. No pulmonary edema. Vasculature is increased slightly from prior imaging. Heart size is normal range. Trachea is midline. No measurable pleural effusion and no pneumothorax. No gross bony abnormality seen. No acute aortic findings suspected. IMPRESSION: Shallow inspiration film shows lung base atelectasis. Vasculature is increased from prior imaging but no significant pulmonary edema identifiable.
[2018-01-19] MEDS: METOPROLOL TAR 25 MG TAB PO SCH (17:09)
[2018-01-19 17:16] LABS: Arterial Blood Carboxyhemoglob 1.1 % (0-1.5); Blood Gas Oxyhemoglobin 95.1 % (94-97); Blood O2 Saturation 97.9 % (92-98.5)
--- NOTE | 2018-01-19 18:48 | PN ---
Date of Progress Note: 01/19/2018 Subjective: The patient is doing well. No nausea. Still has abdominal pain. Physical Examination: Vital Signs: When I saw the patient, blood pressure of 159/80, pulse of 120. Chest: Clear to auscultation. Heart: S1, S2 regular. Abdomen: Soft. Mild tenderness no guarding. Extremities: No edema. Laboratory Data: WBC 23, H and H 11.7/35.6. Sodium 143, potassium 3.5, bicarb 19, BUN 11, creatinin e 0.7, calcium 8.4, and phosphorus 2. Current Medications: The patient on include; 1.Levaquin. 2.Flagyl. 3.Promethazine. 4.Lovenox. 5.Tylenol. 6.Lorazepam. 7.Zofran. 8.Levothyroxine. 9.Normal saline at 75 per hour. 10.Docusate. 11.Potassium phosphate. Assessment And Plan: 1.Acute kidney injury secondary to prerenal, resolved. 2.Hypomagnesemia, hypokalemia, and hypophosphatemia. We will supplement. 3.Hypertension with tachycardia. We will resume metoprolol. 4.Colitis, constipation. Continue current antibiotic. We will follow up. RED/NAM Voice ID: [id number] Report ID: [id number]
[2018-01-19] MEDS: ACETAMINOPHEN 500 MG TAB PO PRN (19:18)
[2018-01-20] MEDS: METRONIDAZOLE 500mg IVPB 500 MG/100 ML BAG IV SCH ×4 (05:13→23:16)
[2018-01-20 05:57] LABS: ALT/SGPT 25 IU/L (10-60); AST/SGOT 41 IU/L (10-42); Albumin 2.3 g/dL (3.2-5.5); Alkaline Phosphatase 68 IU/L (42-121); BUN Blood Urea Nitrogen 7 mg/dL (6-20); Bicarbonate 26 mEq/L (21-31); Bilirubin Total 0.5 mg/dL (0.3-1.2); Glucose Level 93 mg/dL (65-120); Magnesium 1.7 mg/dL (1.8-2.5); Potassium 3.4 mEq/L (3.6-5.0); Protein, Total 4.8 g/dL (6.0-8.3); Sodium Level 139 mEq/L (135-145)
[2018-01-20] MEDS: METOPROLOL TAR 25 MG TAB PO SCH ×2 (06:18→18:25)
[2018-01-20 06:23] LABS: Absolute Lymphocytes (CBC) 2.8 K/uL (0.7-4.9); Absolute Monocytes 1.9 K/uL (0.1-1.3); Absolute Neutrophil 15.7 K/uL (1.8-8.0); Basophils % 0.1 % (0-1.3); Eosinophils % 0.5 % (0-4.4); Hematocrit 32.6 % (36.0-45.0); Lymphocytes % 13.5 % (15.3-44.8); MCH 27.9 pg (27.0-35.0); MCV 85.9 fL (80-100); MPV 10.2 fL (7.6-11.3); Monocytes % 9.2 % (3.3-12.3); RBC Red Blood Cell Count 3.79 M/uL (3.86-4.86)
[2018-01-20] MEDS: HYDROCODONE/APAP 7.5/325 MG TAB PO PRN ×3 (06:30→19:45)
[2018-01-20] MEDS ORDERED: KCL 20 MEQ/100 mL IVPB 20 MEQ/100 ML BAG IV SCH ×2 (06:30→12:00)
[2018-01-20] MEDS ORDERED: MAGNESIUM SULFATE 1 gm IVPB 1 GM/100 ML BAG IV ONE ×2 (06:30→11:18)
[2018-01-20] MEDS: ONDANSETRON 4 MG/2 ML VIAL IV PRN (06:57)
--- NOTE | 2018-01-20 08:17 | P.PN ---
Subjective Date of Service: 01/20/18 (Hospitalist) Primary Care Provider: Dr. Conner Chief Complaint: Abdominal pain/severe constipation Subjective: Improving (Patient is doing well covering a some abdominal discomfort feeling nauseated vital signs all stable) Review of Systems General: Weakness Gastrointestinal: Abdominal Pain Physical Examination - Vital Signs Temperature: 97.9 F Blood Pressure: 151/85 Pulse: 90 Respirations: 15 Pulse Ox (%): 100 - Physical Exam General: Alert, Oriented x3 Neck: Supple Respiratory: Clear to auscultation bilaterally Cardiovascular: Normal S1 S2 Gastrointestinal: Tenderness (Mild abdominal tenderness no rebound) - Studies Medications List Reviewed: Yes Assessment & Plan - Problems (Diagnosis) (1) Colitis Onset Date: 01/15/18 Current Visit: Yes Status: Acute Plan: Patient is doing much better tolerating some liquids feeling nauseated white count is elevated patient is hypokalemic I suspect from the mild diarrhea currently on IV antibiotics transfer to the floor
[2018-01-20] MEDS ORDERED: POTASSIUM PHOS IN 0.9 % NACL 15 MMOL/250 ML BAG IV ONE (08:30)
[2018-01-20] MEDS: DOCUSATE NA 100 MG CAP PO SCH (08:54)
[2018-01-20] MEDS: PANTOPRAZOLE 40 MG INJ IV SCH (08:55)
[2018-01-20] MEDS: Levofloxacin500mg IV 500 MG/100 ML BAG IV SCH (08:55)
[2018-01-20] MEDS: SODIUM CHLORIDE 0.9% 10ML INJ IV SCH (08:55)
[2018-01-20] MEDS: ENOXAPARIN 40 MG/0.4 ML SQ SCH (08:55)
[2018-01-20] MEDS: LEVOTHYROXINE SODIUM 100 MCG VIAL IV SCH (09:00)
[2018-01-20 09:06] LABS: Blood Morphology Comment NOT SEEN (NOT SEEN); Platelet Estimate ADEQ; Urine White Blood Cell Casts OK
[2018-01-20] MEDS: LEVOTHYROXINE SOD 0.05 MG TABLET PO SCH (09:43)
[2018-01-20] MEDS: TRAMADOL HCL 50 MG TAB PO PRN ×2 (11:39→23:15)
[2018-01-20] MEDS ORDERED: POTASSIUM CL 40 MEQ in NA CHLORIDE 0.9% 500 ML IV SCH (12:00)
[2018-01-20] MEDS: Ringers Lactate 1,000 ML IV SCH (12:00)
[2018-01-20] MEDS: PROMETHAZINE 25 MG/ML VIAL IV PRN (17:14)
[2018-01-20] MEDS: LORazepam 2 MG/ML VIAL IV PRN (20:51)
[2018-01-21] MEDS: HYDRALAZINE HCL 20 MG/ML VIAL IV PRN (00:22)
[2018-01-21] MEDS: LORazepam 2 MG/ML VIAL IV PRN (00:48)
[2018-01-21] MEDS ORDERED: KCL 20 MEQ/100 mL IVPB 20 MEQ/100 ML BAG IV SCH (01:00)
--- NOTE | 2018-01-21 02:43 | PN ---
Date of Progress Note: 01/20/2018 Subjective: The patient is doing better and more awake. Physical Examination: Vital Signs: Blood pressure 140/76, pulse of 72, and afebrile. Chest: Clear to auscultation. Heart: S1, S2. Regular. Abdomen: Mild tenderness. Extremities: No edema. Laboratory Data: WBC 20.5, H and H 10.6/32.6. Sodium 139, potassium 3.4, bicarb 26, BUN 7, creatini ne 0.6, calcium 8.3, phosphorus 2, and magnesium 1.7. Medications: Current medications the patient is on include; 1.Hydrocodone. 2.Lopressor 12.5 b.i.d. 3.Pantoprazole. 4.IV fluid. Assessment And Plan: 1.Acute kidney injury secondary to prerenal, contrast-induced nephropathy, recovered, resolved. 2.Hypertension, controlled. Continue beta-ernestina. 3.Hypokalemia, hypomagnesemia, and hypophosphatemia. We will supplement. 4.Colitis. Continue current antibiotic. We will follow up with the primary. LORETTA Voice ID: [id number] Report ID: [id number]
[2018-01-21] MEDS: HYDROCODONE/APAP 7.5/325 MG TAB PO PRN ×3 (03:50→21:39)
[2018-01-21 05:42] LABS: Albumin 2.6 g/dL (3.2-5.5); BUN Blood Urea Nitrogen 6 mg/dL (6-20); Bicarbonate 29 mEq/L (21-31); Glucose Level 114 mg/dL (65-120); Magnesium 1.7 mg/dL (1.8-2.5); Phosphorus 1.4 mg/dL (2.5-4.3); Potassium 3.7 mEq/L (3.6-5.0); Sodium Level 137 mEq/L (135-145)
[2018-01-21] MEDS: METRONIDAZOLE 500mg IVPB 500 MG/100 ML BAG IV SCH ×3 (06:23→17:16)
[2018-01-21] MEDS: METOPROLOL TAR 25 MG TAB PO SCH ×2 (06:25→17:16)
[2018-01-21] MEDS: LEVOTHYROXINE SOD 0.05 MG TABLET PO SCH (06:25)
[2018-01-21] MEDS: PANTOPRAZOLE 40MG TABLET PO SCH (06:26)
[2018-01-21 06:38] VITALS: BMI 28.4
[2018-01-21] MEDS ORDERED: MAGNESIUM SULFATE 1 gm IVPB 1 GM/100 ML BAG IV ONE (07:00)
[2018-01-21] MEDS ORDERED: POTASSIUM PHOS IN 0.9 % NACL 15 MMOL/250 ML BAG IV ONE (08:00)
[2018-01-21] MEDS: DOCUSATE NA 100 MG CAP PO SCH (08:26)
[2018-01-21] MEDS: ENOXAPARIN 40 MG/0.4 ML SQ SCH (08:26)
[2018-01-21] MEDS: TRAMADOL HCL 50 MG TAB PO PRN ×2 (08:26→14:26)
[2018-01-21] MEDS: Levofloxacin500mg IV 500 MG/100 ML BAG IV SCH (08:27)
[2018-01-21] MEDS: Ringers Lactate 1,000 ML IV SCH ×2 (08:27→21:39)
--- NOTE | 2018-01-21 11:56 | PN ---
Date of Progress Note: 01/21/2018 Subjective: The patient is seen and examined, chart reviewed, and case discussed with RN. The patie nt still complaining of some nausea. No vomiting, diarrhea. Abdominal pain has improved. Review of Systems: Negative as above. Medications: Reviewed. Physical Examination: Vital Signs: Temperature 97.8, heart rate 92, blood pressure 135/82, respirations 18, and O2 95% on 2 L via nasal cannula. General: Awake, alert, oriented x3, in some mild distress, appears older than stated age, somewhat i ll-appearing female CV: S1, S2. No murmurs. Peripheral pulses present. Respiratory: Moving air well bilaterally. No wheezing. Gastrointestinal: Abdomen is soft. Mild tenderness to palpation. No guarding or rigidity. Nondist ended. Positive bowel sounds. Extremities: No clubbing, cyanosis, edema. Neurologic: Nonfocal. Laboratory Data: Sodium 137, potassium 3.7, chloride 101, CO2 29, BUN 6, creatinine 0.61, glucose 11 4, calcium 8.4, phosphorus 1.4, magnesium 1.7, and albumin 2.6. WBC pending. Blood cultures, no tania wth to date. Assessment: A 67-year-old female with; 1.Colitis. NG tube now out. Tolerating clear liquids. We will advance diet and monitor. 2.Essential hypertension. Continue home medications. 3.Hypothyroidism. Continue Synthroid. 4.Gastroesophageal reflux disease without esophagitis. Continue PPI. 5.Chronic pain disorder. We will continue with pain control. 6.Abdominal pain secondary to colitis. 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 7.Fecal impaction, improved. 8.Irritable bowel syndrome, stable. 9.Hypokalemia, replaced. Continue to monitor. 10.Acute dehydration, improved with IV fluids. 11.Acute kidney injury. Creatinine normalized. Appreciate Nephrology input. 12.Septic shock, resolved. WBC count still elevated. We will repeat CBC in a.m. Cultures does not show any growth. 13.Urinary tract infection, acute cystitis with hematuria,. Urine culture shows no growth. Treated with IV antibiotic. Plan: Advance diet as tolerated. Repeat CBC in a.m. Discharge planning. SA/MODL Voice ID: [id number] Report ID: [id number]
[2018-01-21] MEDS: NA CHLORIDE 0.9% 1,000 ML IV SCH (14:14)
[2018-01-21] MEDS: ONDANSETRON 4 MG/2 ML VIAL IV PRN (14:24)
[2018-01-21] MEDS: PROMETHAZINE 25 MG/ML VIAL IV PRN (18:08)
[2018-01-22] MEDS: TRAMADOL HCL 50 MG TAB PO PRN ×2 (00:37→20:33)
[2018-01-22] MEDS: METRONIDAZOLE 500mg IVPB 500 MG/100 ML BAG IV SCH ×5 (00:37→23:30)
--- NOTE | 2018-01-22 00:58 | PN ---
Date of Progress Note: 01/21/2018 Chief Complaint: Acute kidney injury secondary to prerenal azotemia complicated by contrast-induced nephropathy. Subjective: The patient recovered from acute kidney injury and renal function is back to baseline. The patient has colitis and complains of diarrhea, abdominal discomfort, and decreased p.o. intake. The patient was found to have hypokalemia, hypomagnesemia, and hypophosphatemia, received replacement. Electrolytes improving. Review of Systems: Denies nausea, vomiting. Denies melena, hematemesis. She is complaining of diarrhea. Objective: Vital signs: Blood pressure is 130/70, heart rate 70. Lungs: Clear to auscultation bilaterally. Heart: S1, S2. Abdomen: Soft, benign. No edema. Laboratory Data: WBC 20.5, hemoglobin 10.6, platelet count is 221,000. Chemistries showed sodium 139, potassium 3.7, chloride 101, CO2 29, BUN 6, creatinine 0.61, magnesium 1.7, phosphorus 1.4, calcium 8.4. Assessment And Plan: 1. Acute kidney injury. Creatinine was up to 1.47 and improved with IV fluids to 0.61. Continue IV normal saline. 2. Hypokalemia. Potassium improved from 3.4 to 3.7. Monitor electrolytes and adjust replacement. 3. Hypophosphatemia. Phosphorus level 1.4. Continue IV phosphorus replacement. 4. Hypomagnesemia. Magnesium 1.7. The patient will have IV magnesium replacement. [place]USTIN/NAM Voice ID: [id number] Report ID: [id number] ELLIS
[2018-01-22] MEDS: HYDROCODONE/APAP 7.5/325 MG TAB PO PRN ×3 (03:43→15:28)
[2018-01-22] MEDS: PANTOPRAZOLE 40MG TABLET PO SCH (05:41)
[2018-01-22] MEDS: LEVOTHYROXINE SOD 0.05 MG TABLET PO SCH (05:41)
[2018-01-22] MEDS: METOPROLOL TAR 25 MG TAB PO SCH ×2 (05:41→17:21)
[2018-01-22] MEDS: NA CHLORIDE 0.9% 1,000 ML IV SCH (05:44)
[2018-01-22 05:53] LABS: Absolute Lymphocytes (CBC) 3.6 K/uL (0.7-4.9); Absolute Monocytes 2.2 K/uL (0.1-1.3); Absolute Neutrophil 9.3 K/uL (1.8-8.0); Basophils % 0.4 % (0-1.3); Eosinophils % 1.5 % (0-4.4); Hematocrit 31.6 % (36.0-45.0); Lymphocytes % 23.5 % (15.3-44.8); MCH 27.3 pg (27.0-35.0); MCV 84.6 fL (80-100); MPV 9.4 fL (7.6-11.3); Monocytes % 14.2 % (3.3-12.3); RBC Red Blood Cell Count 3.73 M/uL (3.86-4.86)
[2018-01-22] MEDS: Levofloxacin500mg IV 500 MG/100 ML BAG IV SCH (08:44)
[2018-01-22] MEDS: DOCUSATE NA 100 MG CAP PO SCH (08:46)
[2018-01-22] MEDS: POLYETHYL GLY 3350 17 GM/DOSE PO SCH (08:46)
[2018-01-22] MEDS: ENOXAPARIN 40 MG/0.4 ML SQ SCH (08:47)
[2018-01-22] MEDS: ESCITALOPRAM 20 MG TAB PO SCH ×2 (10:56→20:33)
[2018-01-22 11:07] LABS: Magnesium 1.7 mg/dL (1.8-2.5); Phosphorus 2.4 mg/dL (2.5-4.3); Potassium 3.6 mEq/L (3.6-5.0)
--- NOTE | 2018-01-22 11:36 | PN ---
Date of Progress Note: 01/22/2018 Subjective: The patient complaining from confusion, mild abdominal pain. No nausea. No vomiting. Physical Examination: Vital Signs: Blood pressure 137/75, pulse of 96, afebrile. The patient had good urine output of 2 L . Chest: Clear to auscultation. Heart: S1, S2. Regular. Abdomen: Mild tenderness. Extremities: No edema. Laboratory Data: WBC 15.3, H and H 10.2/31.6, platelets 270. Sodium 137, potassium 3.7, bicarb 29, BUN 6, creatinine 0.6, calcium 8.4, phosphorus 1.4, magnesium 1.7. Medications: Current medications the patient on its include: 1.Levaquin 500. 2.Flagyl. 3.Promethazine. 4.Levaquin. 5.Metoprolol. 6.Pantoprazole. Assessment And Plan: 1.Acute kidney injury secondary to prerenal, recovered, resolved. 2.Colitis. Continue current antibiotics. 3.Hypomagnesemia, hypokalemia, and hypophosphatemia status post supplement. We will follow up lab mo adrian. 4.Psychosis. Resume her Seroquel. The patient cleared from the Renal standpoint for discharge plan ning. BURGOS Voice ID: [id number] Report ID: [id number]
--- NOTE | 2018-01-22 14:00 | PN ---
Date of Progress Note: 01/22/2018 Subjective: The patient seen and examined, chart reviewed, and case discussed with RN. The patient is eating better; however, does not like the quality of the food. Mother at the bedside. Treatment plan explained. All questions were answered. No nausea or vomiting. Review of Systems: Negative except as above. Medications: Reviewed. Physical Examination: Vital Signs: Temperature 98.5, heart rate 80, blood pressure 165/90, respirations 20, O2 98% on room air. General: Awake, alert, oriented x3. No acute distress. Appears older than stated age, somewhat ill -appearing female. CV: S1, S2. No murmurs. Regular rate and rhythm. Peripheral pulses present bilaterally. Respiratory: Moving air well bilaterally. No wheezing. Gastrointestinal: Abdomen is soft, nontender, and nondistended. Positive bowel sounds. No guarding or rigidity. Extremities: No clubbing, cyanosis, edema. Neurologic: Nonfocal. Laboratory Data: WBC 15.3, H and H 10.2 and 31.6, platelets 270, neutrophils 16%. Blood cultures, n o growth. Assessment And Plan: A 67-year-old female with: 1.Acute colitis, improved. Tolerating diet. On antibiotics. 2.Essential hypertension, stable. 3.Hypothyroidism. Continue Synthroid. 4.Gastroesophageal reflux disease without esophagitis. Continue PPI. 5.Chronic pain syndrome. Continue home medications. 6.Abdominal pain secondary to colitis, improved. 7.Narcotic bowel syndrome. We will continue with laxatives. 8.Fecal impaction, improving. 9.Irritable bowel syndrome, stable. 10.Hypokalemia, replaced. We will continue to monitor electrolytes. 11.Acute dehydration, resolved. 12.Acute kidney injury. Creatinine normalized. 13.Septic shock, resolved. WBC improving. Cultures are negative. 14.Urinary tract infection, acute cystitis with hematuria, urine culture showing mixed jennifer. The p atient has been treated. 15.Gastrointestinal and deep venous thrombosis prophylaxis addressed. Plan: Physical therapy evaluation. We will refer her to SNF. /NAM Voice ID: [id number] Report ID: [id number]
[2018-01-22] MEDS ORDERED: POTASSIUM PHOS IN 0.9 % NACL 15 MMOL/250 ML BAG IV ONE (15:00)
[2018-01-22] MEDS ORDERED: POTASSIUM CL SA 10 MEQ TAB PO ONE (17:00)
[2018-01-22] MEDS ORDERED: MAGNESIUM SULFATE 1 gm IVPB 1 GM/100 ML BAG IV ONE (21:00)
[2018-01-23 02:15] VITALS: O2SAT 95
[2018-01-23 05:14] LABS: Absolute Lymphocytes (CBC) 2.4 K/uL (0.7-4.9); Absolute Neutrophil 8.9 K/uL (1.8-8.0); Basophils % 0.3 % (0-1.3); Eosinophils % 0.9 % (0-4.4); Hematocrit 31.8 % (36.0-45.0); Lymphocytes % 17.6 % (15.3-44.8); MCH 27.6 pg (27.0-35.0); MCV 85.2 fL (80-100); MPV 9.2 fL (7.6-11.3); Monocytes % 15.2 % (3.3-12.3); RBC Red Blood Cell Count 3.74 M/uL (3.86-4.86)
[2018-01-23] MEDS: METOPROLOL TAR 25 MG TAB PO SCH (05:53)
[2018-01-23] MEDS: METRONIDAZOLE 500mg IVPB 500 MG/100 ML BAG IV SCH (05:53)
[2018-01-23] MEDS: PANTOPRAZOLE 40MG TABLET PO SCH (05:54)
[2018-01-23] MEDS: LEVOTHYROXINE SOD 0.05 MG TABLET PO SCH (05:54)
[2018-01-23] MEDS: PROMETHAZINE 25 MG/ML VIAL IV PRN (05:57)
[2018-01-23 07:15] LABS: Blood Morphology Comment NOT SEEN (NOT SEEN); Platelet Estimate ADEQ
[2018-01-23] MEDS: HYDROCODONE/APAP 7.5/325 MG TAB PO PRN (07:25)
[2018-01-23] MEDS: POLYETHYL GLY 3350 17 GM/DOSE PO SCH (08:26)
[2018-01-23] MEDS: Levofloxacin500mg IV 500 MG/100 ML BAG IV SCH (08:26)
[2018-01-23] MEDS: DOCUSATE NA 100 MG CAP PO SCH (08:26)
[2018-01-23] MEDS: ENOXAPARIN 40 MG/0.4 ML SQ SCH (08:27)
[2018-01-23 09:21] LABS: Magnesium 1.8 mg/dL (1.8-2.5); Phosphorus 3.6 mg/dL (2.5-4.3); Potassium 3.7 mEq/L (3.6-5.0)
[2018-01-23 11:02] VITALS: BP 154/74; TEMP 99.2
--- NOTE | 2018-01-24 13:43 | DS ---
Date of Discharge: 01/23/2018 Consultants: Dr. Crenshaw with Nephrology, Dr. Messina, General Surgery, Dr. Conde with GI. Procedures: None. Admitting Diagnoses: 1.Acute colitis. 2.Fecal impaction. 3.Abdominal pain. 4.Irritable bowel syndrome. 5.Chronic pain disorder. Discharge Diagnoses: 1.Acute colitis, improving. 2.Essential hypertension, stable. 3.Hypothyroidism, Synthroid. 4.Gastroesophageal reflux disease without esophagitis, PPI. 5.Chronic pain syndrome. 6.Abdominal pain secondary to colitis, improved. 7.Narcotic bowel syndrome, improving. 8.Fecal impaction, improved. 9.Irritable bowel syndrome, stable. 10.Hypokalemia, replaced. 11.Acute dehydration, resolved. 12.Acute kidney injury, creatinine normalized. 13.Septic shock, resolved. 14.Urinary tract infection, acute cystitis with hematuria, treated with antibiotics. Hospital Course: The patient is a 67-year-old female who came in with abdominal pain and severe cons tipation. The patient takes 4-6 hydrocodone daily for her pain. She also has irritable bowel syndro me, which waxes and wanes between constipation and diarrhea. The patient had a CT scan done which sh owed colitis and severe constipation. The patient was admitted to the hospital. She was found to be in septic shock. She was also had to have an NG tube placed. The patient was started on IV fluids, IV antibiotics. Kept n.p.o. Surgery and GI were consulted. The patient did not have any procedure s while in the hospital. The patient will need a colonoscopy as an outpatient once her acute issues have resolved. The patient's cultures were obtained which showed no growth. Final C. diff assay was checked, which was negative. Urine culture did not show any growth. The patient's white count impr carrie. She was able to be moved out of the ICU. Her electrolytes improved as well. The patient's pr ocalcitonin trended down. Her septic shock resolved. Lactate trended down. The patient was seen by GI and with Nephrology due to acute kidney injury. GI recommended outpatient colonoscopy. The rhonda ent was then started on clear liquid diet which she was tolerating. Her diet was advanced. She was counseled on her narcotic bowel syndrome and to avoid chronic narcotics and to go back and see her pa in management physician or primary care physician to adjust her medications. The patient was instruc kerry to be on a good bowel regimen and to follow closely with GI given her irritable bowel syndrome. The patient was then referred for SNF as she was requiring physical therapy. The patient was accepte d and then discharged in a stable condition. Activity: As per rehab. Medications: As per medication reconciliation list. The patient will finish a course of antibiotics . Followup: Follow up with primary care physician in 2-3 days. Follow up with GI, Dr. Conde in 2 weeks . Follow up with transportation consultant, Dr. Crenshaw in 2 weeks. Follow up with Dr. Messina general surgeon per his recommendation. Return to ER for worsening condition. Diet: Heart healthy. The total time spent discharging patient was 39 minutes. Physical Examination: General: Awake, alert, oriented, no acute distress. CV: S1, S2. No murmurs. Respiratory: Moving air well bilaterally. Abdomen: Soft, nontender, nondistended. Positive bowel sounds. Extremities: No clubbing, cyanosis, edema. Neuro: Nonfocal. SA/MODL Voice ID: [id number] Report ID: [id number]
== END 2018-01-23 12:09 | DRG 388 ==
LOC: ER 02:00 → ERHOLD 06:27 → 4TH 06:40 → 3RD-ICU 01-16 12:50 → 2ND 01-20 12:00
PROVIDERS: ADMIT Hospitalist; ATTEND Family Medicine
PROC: 02HV33Z Insertion of Infusion Device into Superior Vena Cava, Percutaneous Approach (ICD-10-PCS; principal; 2018-01-17)
DX: K56.41 Fecal impaction (principal); A41.9 Sepsis, unspecified organism; N17.0 Acute kidney failure with tubular necrosis; R65.21 Severe sepsis with septic shock; N30.01 Acute cystitis with hematuria; E87.6 Hypokalemia; E86.0 Dehydration; K52.9 Noninfective gastroenteritis and colitis, unspecified; I10 Essential (primary) hypertension; E03.9 Hypothyroidism, unspecified; G89.4 Chronic pain syndrome; R10.84 Generalized abdominal pain; N14.1 Nephropathy induced by other drugs, medicaments and biological substances; R00.0 Tachycardia, unspecified; K21.9 Gastro-esophageal reflux disease without esophagitis; F32.9 Major depressive disorder, single episode, unspecified; T50.8X5A Adverse effect of diagnostic agents, initial encounter
CPT/HCPCS: 36415; 70450; 71045; 74018; 74022; 74177; 80048; 80053; 80069; 80076; 81003; 81015; 82150; 82570; 82805; 83605; 83690; 83735; 84100; 84132; 84145; 84156; 84439; 84443; 84484; 85025; 87040; 87086; 87088; 87493; 93005; 93306; 96361; 96365; 96367; 96375; 97163; 99285; C9113; J0360; J1650; J2405; J2550; J3010; J3475; J7030; J7060; Q9967

== ENCOUNTER 2018-12-11 14:58 | Emergency (ER) | payer OTHER ==
[2018-12-11 15:59] LABS: Absolute Lymphocytes (CBC) 2.7 K/uL (0.7-4.9); Absolute Monocytes 0.6 K/uL (0.1-1.3); Absolute Neutrophil 5.7 K/uL (1.8-8.0); Basophils % 0.8 % (0-1.3); Eosinophils % 2.1 % (0-4.4); Hematocrit 37.5 % (36.0-45.0); MPV 8.9 fL (7.6-11.3); Monocytes % 6.9 % (3.3-12.3); RBC Red Blood Cell Count 4.38 M/uL (3.86-4.86)
[2018-12-11 16:03] LABS: Protime INR 1.03
[2018-12-11 16:23] LABS: ALT/SGPT 25 U/L (12-78); AST/SGOT 19 U/L (15-37); Albumin 3.9 g/dL (3.4-5.0); Alkaline Phosphatase 118 U/L (45-117); BUN Blood Urea Nitrogen 13 mg/dL (7-18); Bicarbonate 29 mmol/L (21-32); Bilirubin Direct < 0.1 mg/dL (0-0.2); Bilirubin Total 0.2 mg/dL (0.2-1.0); Glucose Level 108 mg/dL (74-106); Magnesium 2.3 mg/dL (1.8-2.4); NT PRO-BNP 424 pg/mL (<125); Potassium 3.7 mmol/L (3.5-5.1); Protein, Total 8.1 g/dL (6.4-8.2); Sodium Level 141 mmol/L (136-145); Troponin (Emerg Dept Use Only) < 0.02 ng/mL (0.0-0.045)
--- NOTE | 2018-12-11 16:43 | RAD REPORT ---
EXAM DESCRIPTION: Tommy Single View12/11/2018 4:22 pm CLINICAL HISTORY: Hypertension COMPARISON: January 2018 FINDINGS: The lungs appear clear of acute infiltrate. The heart is normal size IMPRESSION: No acute abnormalities displayed
[2018-12-11] MEDS ORDERED: cloNIDine HCl 0.1 MG TAB ONE (18:03)
[2018-12-11] MEDS ORDERED: IBUPROFEN 400 MG TAB ONE (18:03)
--- NOTE | 2018-12-11 19:19 | EDPHYS ---
Physician Documentation [facility] Name: Marycruz Crawford Age: 68 yrs Sex: Female : 1950 Arrival Date: 12/11/2018 Time: 15:00 Bed 28 Private MD: ED Physician Frank Lau HPI: 12/12 07:23 This 68 yrs old Female presents to ER via Ambulatory with complaints of High kdr Blood Pressure. 07:23 The patient has elevated blood pressure and discovered this at home. Onset: The kdr symptoms/episode began/occurred at an unknown time. Modifying factors: The symptoms are aggravated by Cold medicine. Associated signs and symptoms: The patient has no apparent associated signs or symptoms. Severity of symptoms: At its worst the blood pressure was moderate, in the emergency department the blood pressure is unchanged. The patient has not experienced similar symptoms in the past. The patient has not recently seen a physician. The patient states that she doesn't feel right and notes that her BP is elevated. Historical: - Allergies: 12/11 15:13 PENICILLINS; tw2 - Home Meds: 15:13 cyclobenzaprine 10 mg Oral tab 1 tab 2 times per day [Active]; Lorazepam Oral [Active]; tw2 losartan 50 mg Oral tab 1 tab once daily [Active]; [place] 10-325 mg Oral tab 1 tab every 6 hours [Active]; simvastatin 40 mg Oral tab nightly [Active]; trazodone 50 mg Oral tab nightly [Active]; - PMHx: 15:13 chronic back pain; Hyperlipidemia; Hypertension; Panic Attacks; tw2 - PSHx: 15:13 Tubal ligation; tw2 - Immunization history:: Adult Immunizations. - Social history:: Smoking status: Patient/guardian denies using tobacco. - Ebola Screening: : Patient denies travel to an Ebola-affected area in the 21 days before illness onset. ROS: 12/12 07:23 Constitutional: Negative for fever, chills, and weight loss, Eyes: Negative for injury, kdr pain, redness, and discharge, Neck: Negative for injury, pain, and swelling, Cardiovascular: Negative for chest pain, palpitations, and edema, Respiratory: Negative for shortness of breath, cough, wheezing, and pleuritic chest pain, Abdomen/GI: Negative for abdominal pain, nausea, vomiting, diarrhea, and constipation, Back: Negative for injury and pain, : Negative for injury, bleeding, discharge, and swelling, MS/Extremity: Negative for injury and deformity, Skin: Negative for injury, rash, and discoloration, Neuro: Negative for headache, weakness, numbness, tingling, and seizure activity. Psych: Negative for depression, anxiety, suicide ideation, homicidal ideation, and hallucinations, Allergy/Immunology: Negative for hives, rash, and allergies, Endocrine: Negative for neck swelling, polydipsia, polyuria, polyphagia, and marked weight changes, Hematologic/Lymphatic: Negative for swollen nodes, abnormal bleeding, and unusual bruising. Exam: 07:23 Constitutional: This is a well developed, well nourished patient who is awake, alert, kdr and in no acute distress. Head/Face: Normocephalic, atraumatic. Eyes: Pupils equal round and reactive to light, extra-ocular motions intact. Lids and lashes normal. Conjunctiva and sclera are non-icteric and not injected. Cornea within normal limits. Periorbital areas with no swelling, redness, or edema. Neck: Trachea midline, no thyromegaly or masses palpated, and no cervical lymphadenopathy. Supple, full range of motion without nuchal rigidity, or vertebral point tenderness. No Meningismus. Chest/axilla: Normal chest wall appearance and motion. Nontender with no deformity. No lesions are appreciated. Cardiovascular: Regular rate and rhythm with a normal S1 and S2. No gallops, murmurs, or rubs. Normal PMI, no JVD. No pulse deficits. Respiratory: Lungs have equal breath sounds bilaterally, clear to auscultation and percussion. No rales, rhonchi or wheezes noted. No increased work of breathing, no retractions or nasal flaring. Abdomen/GI: Soft, non-tender, with normal bowel sounds. No distension or tympany. No guarding or rebound. No evidence of tenderness throughout. Back: No spinal tenderness. No costovertebral tenderness. Full range of motion. Skin: Warm, dry with normal turgor. Normal color with no rashes, no lesions, and no evidence of cellulitis. MS/ Extremity: Pulses equal, no cyanosis. Neurovascular intact. Full, normal range of motion. Neuro: Awake and alert, GCS 15, oriented to person, place, time, and situation. Cranial nerves II-XII grossly intact. Motor strength 5/5 in all extremities. Sensory grossly intact. Cerebellar exam normal. Normal gait. Psych: Awake, alert, with orientation to person, place and time. Behavior, mood, and affect are within normal limits. Vital Signs: 12/11 15:11 BP 172 / 91; Pulse 90; Resp 17; Temp 97.1(TE); Pulse Ox 95% on R/A; Weight 68.04 kg tw2 (R); Height 5 ft. 1 in. (154.94 cm); Pain 9/10; 16:30 BP 177 / 89; Pulse 82; Pulse Ox 96% on R/A; sg 17:56 BP 184 / 92; Pulse 78; Resp 18; Pulse Ox 98% on R/A; Pain 9/10; sg 18:26 BP 166 / 88; Pulse 77; Resp 18; Pulse Ox 97% on R/A; sg 19:44 BP 143 / 84; Pulse 62; Resp 18; Pulse Ox 98% on R/A; tl3 15:11 Body Mass Index 28.34 (68.04 kg, 154.94 cm) tw2 15:11 head and my back, i have a bad back tw2 MDM: 19:19 Patient medically screened. [facility] 12/12 07:23 Data reviewed: vital signs, nurses notes, lab test result(s). Counseling: I had a kdr detailed discussion with the patient and/or guardian regarding: the historical points, exam findings, and any diagnostic results supporting the discharge/admit diagnosis, lab results, the need for outpatient follow up. 12/11 15:41 Order name: Basic Metabolic Panel; Complete Time: 16:56 kdr 12/11 15:41 Order name: CBC with Diff; Complete Time: 16:56 kdr 12/11 15:41 Order name: LFT's; Complete Time: 16:56 kdr 12/11 15:41 Order name: Magnesium; Complete Time: 16:56 kdr 12/11 15:41 Order name: NT PRO-BNP; Complete Time: 16:56 kdr 12/11 15:41 Order name: PT-INR; Complete Time: 16:56 kdr 12/11 15:41 Order name: Troponin (emerg Dept Use Only); Complete Time: 16:56 [facility] 12/11 15:41 Order name: XRAY Chest (1 view); Complete Time: 16:56 [facility] 12/11 15:41 Order name: EKG; Complete Time: 15:42 [facility] 12/11 15:41 Order name: Cardiac monitoring; Complete Time: 15:45 [facility] 12/11 15:41 Order name: EKG - Nurse/Tech; Complete Time: 16:03 kdr 12/11 16:25 Order name: Urine Dipstick--Ancillary (enter results) em1 12/11 15:41 Order name: IV Saline Lock; Complete Time: 15:57 [facility] 12/11 15:42 Order name: Labs collected and sent; Complete Time: 15:57 kdr 12/11 15:42 Order name: O2 Per Protocol; Complete Time: 15:45 kdr 12/11 15:42 Order name: O2 Sat Monitoring; Complete Time: 15:45 [facility] 12/11 15:42 Order name: Urine Dipstick-Ancillary (obtain specimen); Complete Time: 16:23 kdr Administered Medications: 12/11 17:55 Drug: cloNIDine 0.1 mg Route: PO; sg 19:45 Follow up: Response: No adverse reaction tl3 17:55 Drug: Motrin 400 mg Route: PO; sg 19:45 Follow up: Response: No adverse reaction tl3 Disposition: 12/11/18 19:19 Discharged to Home. Impression: Hypertensive heart disease. - Condition is Stable. - Discharge Instructions: Hypertension, [id number]. - Medication Reconciliation Form, Thank You Letter form. - Follow up: Private Physician; When: 2 - 3 days; Reason: If symptoms return, Further diagnostic work-up, Recheck today's complaints, Continuance of care, Re-evaluation by your physician. - Problem is new. - Symptoms have improved. Signatures: Dispatcher [employer] EDMS Jordan Luna RN RN sg Frank Lau MD MD kdr Raquel Parks RN RN tw2 Obdulia Hernandez RN RN tl3 Corrections: (The following items were deleted from the chart) 19:50 19:19 12/11/2018 19:19 Discharged to Home. Impression: Hypertensive heart disease. tl3 Condition is Stable. Forms are Medication Reconciliation Form, Thank You Letter, Antibiotic Education, Prescription Opioid Use. Follow up: Private Physician; When: 2 - 3 days; Reason: If symptoms return, Further diagnostic work-up, Recheck today's complaints, Continuance of care, Re-evaluation by your physician. Problem is new. Symptoms have improved. kdr
--- NOTE | 2018-12-11 19:19 | ER ---
Nurse's Notes [facility] Name: Marycruz Crawford Age: 68 yrs Sex: Female : 1950 Arrival Date: 12/11/2018 Time: 15:00 Bed 28 Private MD: Diagnosis: Hypertensive heart disease Presentation: 12/11 15:10 Presenting complaint: Patient states: i h ad to take something for allergy and then tw2 yesterday i started feeling funny after it now my BP is high now i have a cough. Transition of care: patient was not received from another setting of care. Onset of symptoms was December 11, 2018. Risk Assessment: Do you want to hurt yourself or someone else? Patient reports no desire to harm self or others. Initial Sepsis Screen: Does the patient meet any 2 criteria? No. Patient's initial sepsis screen is negative. Does the patient have a suspected source of infection? No. Patient's initial sepsis screen is negative. Care prior to arrival: None. 15:10 Method Of Arrival: Ambulatory tw2 15:10 Acuity: ALBERTO 4 tw2 Triage Assessment: 15:11 General: Appears in no apparent distress. Behavior is calm, cooperative, appropriate tw2 for age. Pain: Denies pain. Historical: - Allergies: 15:13 PENICILLINS; tw2 - Home Meds: 15:13 cyclobenzaprine 10 mg Oral tab 1 tab 2 times per day [Active]; Lorazepam Oral [Active]; tw2 losartan 50 mg Oral tab 1 tab once daily [Active]; [place] 10-325 mg Oral tab 1 tab every 6 hours [Active]; simvastatin 40 mg Oral tab nightly [Active]; trazodone 50 mg Oral tab nightly [Active]; - PMHx: 15:13 chronic back pain; Hyperlipidemia; Hypertension; Panic Attacks; tw2 - PSHx: 15:13 Tubal ligation; tw2 - Immunization history:: Adult Immunizations. - Social history:: Smoking status: Patient/guardian denies using tobacco. - Ebola Screening: : Patient denies travel to an Ebola-affected area in the 21 days before illness onset. Screenin:30 Abuse screen: Denies threats or abuse. Denies injuries from another. Nutritional sg screening: No deficits noted. Tuberculosis screening: No symptoms or risk factors identified. Never had TB. Fall Risk None identified. Assessment: 15:30 General: Appears in no apparent distress. comfortable, well groomed, well developed, sg well nourished, Behavior is calm, cooperative, appropriate for age. Pain: Complains of pain in head and back Quality of pain is described as aching. Neuro: Level of Consciousness is awake, alert, obeys commands, Oriented to person, place, time, situation, Chief Ophthalmic Technician are equal bilaterally Moves all extremities. Full function Gait is steady, Speech is normal, Facial symmetry appears normal. Cardiovascular: Heart tones S1 S2 present Chest pain is denied. Respiratory: Airway is patent Respiratory effort is even, unlabored, Respiratory pattern is regular, symmetrical. GI: Abdomen is round non-distended, Reports normal bowel habits, tolerance of fluids, tolerance of food. : No signs and/or symptoms were reported regarding the genitourinary system. EENT: No signs and/or symptoms were reported regarding the EENT system. Derm: Skin is pink, warm \T\ dry. Musculoskeletal: No signs and/or symptoms reported regarding the musculoskeletal system. 19:44 Reassessment: Patient and/or family updated on plan of care and expected duration. Pain tl3 level reassessed. Patient is alert, oriented x 3, equal unlabored respirations, skin warm/dry/pink. No needs at this time, pt being discharged. Vital Signs: 15:11 BP 172 / 91; Pulse 90; Resp 17; Temp 97.1(TE); Pulse Ox 95% on R/A; Weight 68.04 kg tw2 (R); Height 5 ft. 1 in. (154.94 cm); Pain 9/10; 16:30 BP 177 / 89; Pulse 82; Pulse Ox 96% on R/A; sg 17:56 BP 184 / 92; Pulse 78; Resp 18; Pulse Ox 98% on R/A; Pain 9/10; sg 18:26 BP 166 / 88; Pulse 77; Resp 18; Pulse Ox 97% on R/A; sg 19:44 BP 143 / 84; Pulse 62; Resp 18; Pulse Ox 98% on R/A; tl3 15:11 Body Mass Index 28.34 (68.04 kg, 154.94 cm) tw2 15:11 head and my back, i have a bad back tw2 ED Course: 15:00 Patient arrived in ED. mr 15:11 Triage completed. tw2 15:11 Arm band placed on. tw2 15:14 Jordan Luna, RN is Primary Nurse. sg 15:29 Frank Lau MD is Attending Physician. kdr 15:57 EKG done, by chemical engineering technician. reviewed by Frank Lau MD. dt2 15:58 Initial lab(s) drawn, by id, sent to lab. Inserted saline lock: 20 gauge in left ms forearm, using aseptic technique. Blood collected. 16:18 X-ray completed. Portable x-ray completed in exam room. Patient tolerated procedure ls3 well. 16:20 XRAY Chest (1 view) In Process Unspecified. EDMS 19:09 Primary Nurse role handed off by Jordan Luna RN tl3 19:09 Obdulia Hernandez RN is Primary Nurse. tl3 19:44 Patient has correct armband on for positive identification. tl3 19:44 No provider procedures requiring assistance completed. IV discontinued, intact, tl3 bleeding controlled, No redness/swelling at site. Pressure dressing applied. Administered Medications: 17:55 Drug: cloNIDine 0.1 mg Route: PO; sg 19:45 Follow up: Response: No adverse reaction tl3 17:55 Drug: Motrin 400 mg Route: PO; sg 19:45 Follow up: Response: No adverse reaction tl3 Outcome: 19:19 Discharge ordered by . kdr 19:44 Discharged to home ambulatory. tl3 19:44 Condition: stable 19:44 Discharge instructions given to patient, family, Instructed on discharge instructions, follow up and referral plans. medication usage, Demonstrated understanding of instructions, follow-up care, medications. 19:50 Patient left the ED. tl3 Signatures: Dispatcher [employer] EDNE Jordan Luna, RN RN Frank Lau MD MD kdr Fernandez, Shannan mr Chance, Lin ms Raquel Parks, RN RN tw2 Obdulia Hernandez RN RN tl3 Nelli Carrion dt2 Nemo Bucio ls3
[2018-12-11 19:22] LABS: Urine Blood TRACE (NEG); Urine Glucose NEGATIVE (NEG); Urine Protein NEGATIVE (NEG); Urine pH 5.5 (5.0-7.0)
[2018-12-11 20:03] VITALS: TEMP 97.1
[2018-12-11 20:07] VITALS: BP 143/84; O2SAT 98
== END 2018-12-11 19:50 | disposition home or self-care (01) ==
LOC: ER 14:58
DX: I11.9 Hypertensive heart disease without heart failure (principal); E78.5 Hyperlipidemia, unspecified; Z88.0 Allergy status to penicillin
CPT/HCPCS: 36415; 71045; 80048; 80076; 81003; 83735; 83880; 84484; 85025; 85610; 93005; 99284

== ENCOUNTER 2019-03-24 02:06 | Emergency (ER) | payer OTHER ==
[2019-03-24] MEDS ORDERED: ONDANSETRON 4 MG/2 ML VIAL ONE (02:37)
[2019-03-24] MEDS ORDERED: MORPHINE 4 MG/ML SYR ONE (02:37)
[2019-03-24 02:40] LABS: Absolute Lymphocytes (CBC) 5.2 K/uL (0.7-4.9); Basophils % 0.5 % (0-1.3); Eosinophils % 1.5 % (0-4.4); Lymphocytes % 39.8 % (15.3-44.8); MPV 9.2 fL (7.6-11.3); Monocytes % 8.4 % (3.3-12.3); RBC Red Blood Cell Count 4.99 M/uL (3.86-4.86)
[2019-03-24 02:51] LABS: Protime INR 1.01
[2019-03-24 03:02] LABS: ALT/SGPT 46 U/L (12-78); AST/SGOT 33 U/L (15-37); Albumin 4.2 g/dL (3.4-5.0); Alkaline Phosphatase 137 U/L (45-117); BUN Blood Urea Nitrogen 9 mg/dL (7-18); Bicarbonate 31 mmol/L (21-32); Bilirubin Direct < 0.1 mg/dL (0-0.2); Bilirubin Total 0.3 mg/dL (0.2-1.0); Glucose Level 117 mg/dL (74-106); Lipase 92 U/L (73-393); Protein, Total 9.3 g/dL (6.4-8.2); Sodium Level 142 mmol/L (136-145)
[2019-03-24] MEDS ORDERED: NA CHLORIDE 0.9% 500 ML ONE (03:23)
[2019-03-24 03:28] LABS: Magnesium 2.4 mg/dL (1.8-2.4); NT PRO-BNP 518 pg/mL (<125); Troponin (Emerg Dept Use Only) < 0.02 ng/mL (0.0-0.045)
[2019-03-24] MEDS ORDERED: POTASSIUM 25 MEQ EFFERV TAB ONE (03:57)
--- NOTE | 2019-03-24 05:08 | ER ---
Nurse's Notes [facility] Name: Marycruz Crawford Age: 68 yrs Sex: Female : 1950 Arrival Date: 03/24/2019 Time: 02:09 Bed 6 Private MD: Diagnosis: Abdominal tenderness;Vomiting;Diarrhea, unspecified;Hypokalemia;Essential (primary) hypertension;Left sided colitis-SIGMOID Presentation: 03/24 02:11 Presenting complaint: EMS states: "she has been reporting nausea and vomiting with jd3 diarrhea for a couple of days now. she also reported she was having numbness on her left arm and leg that started 3-4 days ago.". Transition of care: patient was not received from another setting of care. Onset of symptoms was March 21, 2019. Risk Assessment: Do you want to hurt yourself or someone else? Patient reports no desire to harm self or others. Initial Sepsis Screen: Does the patient meet any 2 criteria? No. Patient's initial sepsis screen is negative. Does the patient have a suspected source of infection? No. Patient's initial sepsis screen is negative. Care prior to arrival: None. 02:11 Method Of Arrival: EMS: [facility] jd3 02:11 Acuity: ALBERTO 3 jd3 Historical: - Allergies: 02:18 PENICILLINS; jd3 - Home Meds: 02:18 cyclobenzaprine 10 mg Oral tab 1 tab 2 times per day [Active]; Lorazepam Oral [Active]; jd3 losartan 50 mg Oral tab 1 tab once daily [Active]; [place] 10-325 mg Oral tab 1 tab every 6 hours [Active]; simvastatin 40 mg Oral tab nightly [Active]; trazodone 50 mg Oral tab nightly [Active]; - PMHx: 02:18 chronic back pain; Hypertension; Hyperlipidemia; Panic Attacks; Anxiety; jd3 - PSHx: 02:18 Tubal ligation; jd3 - Immunization history:: Adult Immunizations up to date. - Social history:: Smoking status: Patient/guardian denies using tobacco. - Ebola Screening: : Patient negative for fever greater than or equal to 101.5 degrees Fahrenheit, and additional compatible Ebola Virus Disease symptoms. - Family history:: not pertinent. Screenin:37 Abuse screen: Denies threats or abuse. Nutritional screening: No deficits noted. jd3 Tuberculosis screening: No symptoms or risk factors identified. Fall Risk IV access (20 points). Ambulatory Aid- None/Bed Rest/Nurse Assist (0 pts). Gait- Normal/Bed Rest/Wheelchair (0 pts) Mental Status- Oriented to own ability (0 pts). Total Bennett Fall Scale indicates No Risk (0-24 pts). Assessment: 02:25 General: Appears uncomfortable, Behavior is cooperative, appropriate for age, anxious, jd3 restless. Pain: Complains of pain in abdomen Pain does not radiate. Quality of pain is described as sharp. Neuro: Level of Consciousness is awake, alert, obeys commands, Oriented to person, place, time, situation, Appropriate for age Director Operations Broadcast are equal bilaterally Moves all extremities. Full function Gait is steady, Speech is normal, Facial symmetry appears normal, Intact Reports weakness in left arm and left leg. Cardiovascular: Heart tones S1 S2 present Capillary refill < 3 seconds Patient's skin is warm and dry. Respiratory: Airway is patent Respiratory effort is even, unlabored, Respiratory pattern is regular, symmetrical, Breath sounds are clear bilaterally. GI: Abdomen is round non-distended, Bowel sounds present X 4 quads. Abd is soft X 4 quads Abdomen is tender to palpation X 4 quads. Reports diarrhea, nausea, vomiting. : No signs and/or symptoms were reported regarding the genitourinary system. EENT: No signs and/or symptoms were reported regarding the EENT system. Derm: Skin is intact, Skin is dry, Skin is normal, Skin temperature is warm. Musculoskeletal: Circulation, motion, and sensation intact. Range of motion: intact in all extremities. 03:14 Reassessment: Patient appears in no apparent distress at this time. Patient and/or jd3 family updated on plan of care and expected duration. Pain level reassessed. Patient is alert, oriented x 3, equal unlabored respirations, skin warm/dry/pink. Patient states feeling better. 04:21 Reassessment: Patient appears in no apparent distress at this time. Patient and/or jd3 family updated on plan of care and expected duration. Pain level reassessed. Patient is alert, oriented x 3, equal unlabored respirations, skin warm/dry/pink. pt resting in bed with eyes closed and even and unlabored respirations. awaiting results and disposition. Patient denies pain at this time. 05:12 Reassessment: Patient appears in no apparent distress at this time. Patient and/or jd3 family updated on plan of care and expected duration. Pain level reassessed. Patient is alert, oriented x 3, equal unlabored respirations, skin warm/dry/pink. 05:38 Reassessment: pt reporting pain. provider notified. no new orders at this time. jd3 06:37 Reassessment: Patient appears in no apparent distress at this time. Patient and/or jd3 family updated on plan of care and expected duration. Pain level reassessed. Patient is alert, oriented x 3, equal unlabored respirations, skin warm/dry/pink. awaiting medication infusion before discharge. 07:37 Reassessment: Patient appears in no apparent distress at this time. Patient and/or tw2 family updated on plan of care and expected duration. Pain level reassessed. Patient is alert, oriented x 3, equal unlabored respirations, skin warm/dry/pink. 08:13 Reassessment: Patient appears in no apparent distress at this time. Patient and/or tw2 family updated on plan of care and expected duration. Pain level reassessed. Patient is alert, oriented x 3, equal unlabored respirations, skin warm/dry/pink. Vital Signs: 02:18 BP 157 / 108; Pulse 83; Resp 19 S; Temp 99.7(O); Pulse Ox 98% on R/A; Weight 71.21 kg jd3 (R); Height 5 ft. 1 in. (154.94 cm) (R); Pain 8/10; 03:13 BP 161 / 87; Pulse 78; Resp 18 S; Pulse Ox 96% on R/A; Pain 0/10; jd3 04:18 BP 162 / 92; Pulse 57; Resp 17 S; Pulse Ox 97% on R/A; Pain 0/10; jd3 05:10 BP 150 / 81; Pulse 62; Resp 17 S; Temp 98.7(O); Pulse Ox 96% on R/A; jd3 05:38 Pain 5/10; jd3 06:35 BP 150 / 84; Pulse 55; Resp 17 S; Pulse Ox 97% on R/A; jd3 07:37 BP 142 / 78; Pulse 60; Resp 17; Pulse Ox 98% on R/A; tw2 02:18 Body Mass Index 29.66 (71.21 kg, 154.94 cm) jd3 NIH Stroke Scale Scores: 02:36 NIHSS Score: 0 jorge ED Course: 02:09 Patient arrived in ED. ds1 02:09 Altaf Gongora MD is Attending Physician. jorge 02:11 Carlos Ferrari RN is Primary Nurse. jd3 02:16 Triage completed. jd3 02:19 Arm band placed on. jd3 02:20 Inserted saline lock: 22 gauge in left antecubital area, using aseptic technique. Blood ea collected. 02:38 Patient has correct armband on for positive identification. Bed in low position. Call jd3 light in reach. Side rails up X 1. environmental monitoring technician on. Pulse ox on. NIBP on. 02:44 X-ray completed. Portable x-ray completed in exam room. Patient tolerated procedure kw well. 02:44 XRAY Chest (1 view) In Process Unspecified. EDMS 03:03 CT Head Brain wo Cont In Process Unspecified. EDMS 05:31 CT Stone Protocol In Process Unspecified. EDMS 05:49 Greta Conde MD is Referral Physician. jorge 07:05 Awaiting: awaiting completion of IV abx completion PRIOR to discharge. tw2 07:36 Awaiting transportation, Awaiting: prior to discharge. tw2 08:12 No provider procedures requiring assistance completed. IV discontinued, intact, tw2 bleeding controlled, No redness/swelling at site. Pressure dressing applied. Administered Medications: 02:32 Drug: morphine 4 mg Route: IVP; Site: left antecubital; jd3 02:33 Drug: Zofran 4 mg Route: IVP; Site: left antecubital; jd3 03:13 Drug: NS 0.9% 500 ml Route: IV; Rate: bolus; Site: left antecubital; jd3 07:14 Follow up: Response: No adverse reaction; IV Status: Completed infusion; IV Intake: tw2 500ml 03:43 Drug: Potassium Effervescent Tablet 25 mEq Route: PO; jd3 04:30 Follow up: Response: No adverse reaction jd3 06:06 Drug: Cipro 400 mg Volume: 200 ml; Route: IVPB; Infused Over: 60 mins; Site: left jd3 antecubital; 07:34 Follow up: Response: No adverse reaction; IV Status: Completed infusion tw2 06:06 Drug: Flagyl 500 mg Route: PO; jd3 07:13 Follow up: Response: No adverse reaction tw2 06:06 Drug: [place] 5 mg-325 mg 1 tabs Route: PO; jd3 07:14 Follow up: Response: No adverse reaction; Pain is decreased tw2 Intake: 07:14 IV: 500ml; Total: 500ml. tw2 Outcome: 05:07 Discharge ordered by MD. patel 08:12 Discharged to home via wheelchair, with family. tw2 08:12 Condition: stable 08:12 Discharge instructions given to patient, family, Instructed on discharge instructions, follow up and referral plans. medication usage, Demonstrated understanding of instructions, follow-up care, medications, Prescriptions given X 5 08:13 Patient left the ED. tw2 NIH Stroke Scale - NIH Stroke Score Date: 03/24/2019 Time: 02:36 Total Score = 0 1a. Level of Consciousness (LOC) - 0(Alert) 1b. Level of Consciousness (LOC) (Year \\T\\ Age) - 0(Both) 1c. LOC Commands (Open \\T\\ Closes Eyes/Wagon Washer) - 0(Both) 2. Best Gaze (Lateral Gaze Paresis) - 0(Normal) 3. Visual Field Loss - 0(No visual loss) 4. Facial Palsy - 0(Normal) 5a. Left Arm: Motor (10-second hold) - 0(No drift) 5b. Right Arm: Motor (10-second hold) - 0(No drift) 6a. Left Leg: Motor (5-second hold - always test supine) - 0(No drift) 6b. Right Leg: Motor (5-second hold - always test supine) - 0(No drift) 7. Limb Ataxia (finger/nose \\T\\ heel/isabel - test with eyes open) - 0(Absent) 8. Sensory Loss (pinprick arms/legs/face) - 0(Normal) 9. Best Language: Aphasia (description/naming/reading) - 0(No aphasia) 10. Dysarthria (speech clarity - read or repeat words) - 0(Normal) 11. Extinction and Inattention (visual/tactile/auditory/spatial/personal) - 0(No abnormality) Initials: jorge Signatures: Dispatcher [employer] Altaf Artis MD MD cha Sanford, Demi ds1 Ilsa Bacon Tara RN RN tw2 Yessenia Gannon RN RN ea Carlos Ferrari RN RN jd3 Corrections: (The following items were deleted from the chart) 04:23 04:18 BP 162 / 92; Pulse 57bpm; Resp 57bpm; Spontaneous; Pulse Ox 97% RA; Pain jd3 0/10; jd3
--- NOTE | 2019-03-24 05:08 | EDPHYS ---
Physician Documentation [facility] Name: Marycruz Crawford Age: 68 yrs Sex: Female : 1950 Arrival Date: 03/24/2019 Time: 02:09 Bed 6 Private MD: ED Physician Altaf Gongora HPI: 03/24 02:36 This 68 yrs old Female presents to ER via EMS with complaints of Abdominal jorge Pain. 02:36 The patient or guardian complains of numbness. jorge Historical: - Allergies: 02:18 PENICILLINS; jd3 - Home Meds: 02:18 cyclobenzaprine 10 mg Oral tab 1 tab 2 times per day [Active]; Lorazepam Oral [Active]; jd3 losartan 50 mg Oral tab 1 tab once daily [Active]; Rocklin 10-325 mg Oral tab 1 tab every 6 hours [Active]; simvastatin 40 mg Oral tab nightly [Active]; trazodone 50 mg Oral tab nightly [Active]; - PMHx: 02:18 chronic back pain; Hypertension; Hyperlipidemia; Panic Attacks; Anxiety; jd3 - PSHx: 02:18 Tubal ligation; jd3 - Immunization history:: Adult Immunizations up to date. - Social history:: Smoking status: Patient/guardian denies using tobacco. - Ebola Screening: : Patient negative for fever greater than or equal to 101.5 degrees Fahrenheit, and additional compatible Ebola Virus Disease symptoms. - Family history:: not pertinent. ROS: 02:36 Constitutional: Negative for fever, chills, and weight loss, Eyes: Negative for injury, jorge pain, redness, and discharge, ENT: Negative for injury, pain, and discharge, Neck: Negative for injury, pain, and swelling, Cardiovascular: Negative for chest pain, palpitations, and edema, Respiratory: Negative for shortness of breath, cough, wheezing, and pleuritic chest pain, Abdomen/GI: Negative for abdominal pain, nausea, vomiting, diarrhea, and constipation, Back: Negative for injury and pain, : Negative for injury, bleeding, discharge, and swelling, MS/Extremity: Negative for injury and deformity, Skin: Negative for injury, rash, and discoloration, Psych: Negative for depression, anxiety, suicide ideation, homicidal ideation, and hallucinations, Allergy/Immunology: Negative for hives, rash, and allergies, Endocrine: Negative for neck swelling, polydipsia, polyuria, polyphagia, and marked weight changes, Hematologic/Lymphatic: Negative for swollen nodes, abnormal bleeding, and unusual bruising. 02:36 Abdomen/GI: Positive for abdominal pain, nausea and vomiting. 02:36 Neuro: Positive for numbness, of the left arm and left leg. Exam: 02:36 Constitutional: This is a well developed, well nourished patient who is awake, alert, jorge and in no acute distress. Head/Face: Normocephalic, atraumatic. Eyes: Pupils equal round and reactive to light, extra-ocular motions intact. Lids and lashes normal. Conjunctiva and sclera are non-icteric and not injected. Cornea within normal limits. Periorbital areas with no swelling, redness, or edema. ENT: Nares patent. No nasal discharge, no septal abnormalities noted. Tympanic membranes are normal and external auditory canals are clear. Oropharynx with no redness, swelling, or masses, exudates, or evidence of obstruction, uvula midline. Mucous membranes moist. Neck: Trachea midline, no thyromegaly or masses palpated, and no cervical lymphadenopathy. Supple, full range of motion without nuchal rigidity, or vertebral point tenderness. No Meningismus. Chest/axilla: Normal chest wall appearance and motion. Nontender with no deformity. No lesions are appreciated. Cardiovascular: Regular rate and rhythm with a normal S1 and S2. No gallops, murmurs, or rubs. Normal PMI, no JVD. No pulse deficits. Respiratory: Lungs have equal breath sounds bilaterally, clear to auscultation and percussion. No rales, rhonchi or wheezes noted. No increased work of breathing, no retractions or nasal flaring. Abdomen/GI: Soft, non-tender, with normal bowel sounds. No distension or tympany. No guarding or rebound. No evidence of tenderness throughout. Back: No spinal tenderness. No costovertebral tenderness. Full range of motion. Female : Normal external genitalia. Skin: Warm, dry with normal turgor. Normal color with no rashes, no lesions, and no evidence of cellulitis. MS/ Extremity: Pulses equal, no cyanosis. Neurovascular intact. Full, normal range of motion. Neuro: Awake and alert, GCS 15, oriented to person, place, time, and situation. Cranial nerves II-XII grossly intact. Motor strength 5/5 in all extremities. Sensory grossly intact. Cerebellar exam normal. Normal gait. Psych: Awake, alert, with orientation to person, place and time. Behavior, mood, and affect are within normal limits. Vital Signs: 02:18 BP 157 / 108; Pulse 83; Resp 19 S; Temp 99.7(O); Pulse Ox 98% on R/A; Weight 71.21 kg jd3 (R); Height 5 ft. 1 in. (154.94 cm) (R); Pain 8/10; 03:13 BP 161 / 87; Pulse 78; Resp 18 S; Pulse Ox 96% on R/A; Pain 0/10; jd3 04:18 BP 162 / 92; Pulse 57; Resp 17 S; Pulse Ox 97% on R/A; Pain 0/10; jd3 05:10 BP 150 / 81; Pulse 62; Resp 17 S; Temp 98.7(O); Pulse Ox 96% on R/A; jd3 05:38 Pain 5/10; jd3 06:35 BP 150 / 84; Pulse 55; Resp 17 S; Pulse Ox 97% on R/A; jd3 07:37 BP 142 / 78; Pulse 60; Resp 17; Pulse Ox 98% on R/A; tw2 02:18 Body Mass Index 29.66 (71.21 kg, 154.94 cm) jd3 NIH Stroke Scale Scores: 02:36 NIHSS Score: 0 jorge MDM: 02:09 Patient medically screened. [facility] 02:36 Data reviewed: vital signs, nurses notes, lab test result(s), EKG, radiologic studies, [facility] CT scan, plain films. 03/24 02:17 Order name: Basic Metabolic Panel 03/24 02:17 Order name: CBC with Diff; Complete Time: 03:20 03/24 02:17 Order name: Creatinine for Radiology; Complete Time: 03:20 03/24 02:17 Order name: Hepatic Function; Complete Time: 03:20 03/24 02:17 Order name: Lipase; Complete Time: 03:20 03/24 02:17 Order name: Basic Metabolic Panel; Complete Time: 03:20 EDMS 03/24 02:34 Order name: Magnesium jorge 03/24 02:34 Order name: NT PRO-BNP; Complete Time: 04:44 [facility] 03/24 02:34 Order name: PT-INR; Complete Time: 03:20 [facility] 03/24 02:34 Order name: Troponin (emerg Dept Use Only); Complete Time: 04:44 [facility] 03/24 02:34 Order name: XRAY Chest (1 view) [facility] 03/24 02:34 Order name: CT Head Brain wo Cont [facility] 03/24 02:34 Order name: Magnesium; Complete Time: 04:44 EDMS 03/24 02:17 Order name: IV Saline Lock; Complete Time: 02:27 03/24 02:17 Order name: Labs collected and sent; Complete Time: 02:33 03/24 02:34 Order name: EKG; Complete Time: 02:35 [facility] 03/24 02:34 Order name: Cardiac monitoring; Complete Time: 03:07 [facility] 03/24 02:34 Order name: EKG - Nurse/Tech; Complete Time: 03:08 [facility] 03/24 02:34 Order name: O2 Per Protocol; Complete Time: 02:34 [facility] 03/24 02:34 Order name: O2 Sat Monitoring; Complete Time: 02:34 [facility] 03/24 02:34 Order name: Urine Dipstick-Ancillary (obtain specimen); Complete Time: 05:16 [facility] 03/24 05:06 Order name: CT Stone Protocol [facility] 03/24 05:06 Order name: Vital Signs; Complete Time: 05:12 [facility] Administered Medications: 02:32 Drug: morphine 4 mg Route: IVP; Site: left antecubital; jd3 02:33 Drug: Zofran 4 mg Route: IVP; Site: left antecubital; jd3 03:13 Drug: NS 0.9% 500 ml Route: IV; Rate: bolus; Site: left antecubital; jd3 07:14 Follow up: Response: No adverse reaction; IV Status: Completed infusion; IV Intake: tw2 500ml 03:43 Drug: Potassium Effervescent Tablet 25 mEq Route: PO; jd3 04:30 Follow up: Response: No adverse reaction jd3 06:06 Drug: Cipro 400 mg Volume: 200 ml; Route: IVPB; Infused Over: 60 mins; Site: left jd3 antecubital; 07:34 Follow up: Response: No adverse reaction; IV Status: Completed infusion tw2 06:06 Drug: Flagyl 500 mg Route: PO; jd3 07:13 Follow up: Response: No adverse reaction tw2 06:06 Drug: Rocklin 5 mg-325 mg 1 tabs Route: PO; jd3 07:14 Follow up: Response: No adverse reaction; Pain is decreased tw2 Disposition: 03/24/19 05:07 Discharged to Home. Impression: Abdominal tenderness, Vomiting, Diarrhea, unspecified, Hypokalemia, Essential (primary) hypertension, Left sided colitis - SIGMOID. - Condition is Stable. - Discharge Instructions: Abdominal Pain, Adult, Food Choices to Help Relieve Diarrhea, Adult, Diarrhea, Adult, Hypertension, Nausea and Vomiting, Adult, Nausea and Vomiting, Adult, Lxjf-[id number]-Hmpc, Abdominal Pain, Adult, Jaax-bf-Goek, Hypertension, Tcyn-sb-Rhzz, Diarrhea, Adult, Sndn-pe-Pekc, Managing Your Hypertension, Colitis. - Prescriptions for Bentyl 20 mg Oral Tablet - take 1 tablet by ORAL route every 6 hours As needed; 20 tablet. Pepcid 20 mg Oral Tablet - take 1 tablet by ORAL route every 12 hours for 10 days; 20 tablet. Zofran 4 mg Oral Tablet - take 1 tablet by ORAL route every 12 hours As needed; 20 tablet. Flagyl 500 mg Oral Tablet - take 1 tablet by ORAL route every 8 hours for 10 days; 21 tablet. Cipro 500 mg Oral Tablet - take 1 tablet by ORAL route every 12 hours for 7 days; 14 tablet. - Medication Reconciliation Form, Thank You Letter, Antibiotic Education, Prescription Opioid Use form. - Follow up: Private Physician; When: 1 - 2 days; Reason: Recheck today's complaints, Continuance of care, Re-evaluation by your physician. Follow up: Greta Conde MD; When: 2 - 3 days; Reason: Recheck today's complaints, Re-evaluation by your physician. - Problem is new. - Symptoms have improved. NIH Stroke Scale - NIH Stroke Score Date: 03/24/2019 Time: 02:36 Total Score = 0 1a. Level of Consciousness (LOC) - 0(Alert) 1b. Level of Consciousness (LOC) (Year \T\ Age) - 0(Both) 1c. LOC Commands (Open \T\ Closes Eyes/[employer]) - 0(Both) 2. Best Gaze (Lateral Gaze Paresis) - 0(Normal) 3. Visual Field Loss - 0(No visual loss) 4. Facial Palsy - 0(Normal) 5a. Left Arm: Motor (10-second hold) - 0(No drift) 5b. Right Arm: Motor (10-second hold) - 0(No drift) 6a. Left Leg: Motor (5-second hold - always test supine) - 0(No drift) 6b. Right Leg: Motor (5-second hold - always test supine) - 0(No drift) 7. Limb Ataxia (finger/nose \T\ heel/isabel - test with eyes open) - 0(Absent) 8. Sensory Loss (pinprick arms/legs/face) - 0(Normal) 9. Best Language: Aphasia (description/naming/reading) - 0(No aphasia) 10. Dysarthria (speech clarity - read or repeat words) - 0(Normal) 11. Extinction and Inattention (visual/tactile/auditory/spatial/personal) - 0(No abnormality) Initials: [facility] Signatures: Dispatcher [employer] EDMS Altaf Gongora MD MD cha Wise, Tara, RN RN tw2 Yessenia Gannon RN RN ea Davies, Jonathon, RN RN jd3 Corrections: (The following items were deleted from the chart) 05:49 05:07 03/24/2019 05:07 Discharged to Home. Impression: Abdominal tenderness; jorge Vomiting; Diarrhea, unspecified; Hypokalemia; Essential (primary) hypertension. Condition is Stable. Forms are Medication Reconciliation Form, Thank You Letter, Antibiotic Education, Prescription Opioid Use. Follow up: Private Physician; When: 1 - 2 days; Reason: Recheck today's complaints, Continuance of care, Re-evaluation by your physician. Problem is new. Symptoms have improved. [facility] 08:13 05:49 03/24/2019 05:07 Discharged to Home. Impression: Abdominal tenderness; tw2 Vomiting; Diarrhea, unspecified; Hypokalemia; Essential (primary) hypertension; Left sided colitis - SIGMOID. Condition is Stable. Discharge Instructions: Abdominal Pain, Adult, Food Choices to Help Relieve Diarrhea, Adult, Diarrhea, Adult, Hypertension, Nausea and Vomiting, Adult, Nausea and Vomiting, Adult, Yvtf-jy-Biuo, Abdominal Pain, Adult, Yqsc-mu-Plow, Hypertension, Myke-ph-Vpvu, Diarrhea, Adult, Zods-qd-Hwqr, Managing Your Hypertension. Prescriptions for Bentyl 20 mg Oral Tablet - take 1 tablet by ORAL route every 6 hours As needed; 20 tablet, Pepcid 20 mg Oral Tablet - take 1 tablet by ORAL route every 12 hours for 10 days; 20 tablet, Zofran 4 mg Oral Tablet - take 1 tablet by ORAL route every 12 hours As needed; 20 tablet. and Forms are Medication Reconciliation Form, Thank You Letter, Antibiotic Education, Prescription Opioid Use. Follow up: Private Physician; When: 1 - 2 days; Reason: Recheck today's complaints, Continuance of care, Re-evaluation by your physician. Follow up: Greta Conde; When: 2 - 3 days; Reason: Recheck today's complaints, Re-evaluation by your physician. Problem is new. Symptoms have improved. jorge
[2019-03-24] MEDS ORDERED: metroNIDAZOLE 500 MG TABLET ONE (06:11)
[2019-03-24] MEDS ORDERED: CIPROFLOXACIN 400mg IV 400 MG/200 ML BAG IV ONE (06:12)
[2019-03-24] MEDS ORDERED: HYDROCODONE/APAP 5/325 MG TAB ONE (06:13)
--- NOTE | 2019-03-24 08:23 | RAD REPORT ---
EXAM DESCRIPTION: Tommy Single View03/24/2019 2:46 am CLINICAL HISTORY: Cough COMPARISON: December 2018 FINDINGS: The lungs appear clear of acute infiltrate. The heart is normal size IMPRESSION: No acute abnormalities displayed
[2019-03-24 09:01] VITALS: TEMP 98.7
[2019-03-24 09:05] VITALS: BP 142/78; O2SAT 98
--- NOTE | 2019-03-24 09:07 | EKG ---
Test Date: 2019-03-24 Test Time: 03:02:49 Electromyographic Technician: JACINTO MEASUREMENT RESULTS: Intervals: Rate: 64 WA: 162 QRSD: 106 QT: 410 QTc: 422 [place]: P: 52 WA: 162 QRS: -23 T: -56 INTERPRETIVE STATEMENTS: Normal sinus rhythm Minimal voltage criteria for LVH, may be normal variant T wave abnormality, consider lateral ischemia Abnormal ECG Compared to ECG 12/11/2018 15:51:10 T-wave abnormality now present Sinus bradycardia no longer present ST (T wave) deviation no longer present Possible ischemia still present Electronically Signed On 03-24-19 09:06:37 CDT by Maximo Salazar
--- NOTE | 2019-03-24 09:58 | RAD REPORT ---
EXAM DESCRIPTION: CT - Stone Protocol - 03/24/2019 5:49 am CLINICAL HISTORY: ABD PAIN COMPARISON: 01/15/2018 TECHNIQUE: CT of the abdomen and pelvis without IV contrast. Evaluation of the solid organs and vasc ulature is suboptimal due to lack of IV contrast. DLP: 616.6 mGy-cm FINDINGS: Lung Bases: The visualized lung bases are clear. Bones: No destructive bone lesions identified. Abdomen: Liver: The liver has normal size and decreased density. Gallbladder: No calcified gallstones. Spleen, Pancreas, and Adrenal Glands: The spleen, pancreas, and adrenal glands are unremarkable. Kidneys: The kidneys have normal size and contour without evidence of hydronephrosis. No obstructing ureteral calculi. Vasculature: Aortoiliac atherosclerosis. IVC is unremarkable. Stomach: The stomach and duodenum have normal course. Other: No free intraperitoneal air. No free fluid or lymphadenopathy. Pelvis: Bladder: Urinary bladder is unremarkable. Bowel: No dilated loops of large or small bowel. Wall thickening of the sigmoid colon. The cecum is displaced into the midabdomen without dilation. Appendix: Not identified. Pelvis: Prostate is not enlarged. IMPRESSION: 1. Findings compatible with colitis of the sigmoid colon. This could be of infectious or inflammatory etiology. 2. Hepatic steatosis. This exam was performed according to our departmental dose-optimization program, which includes autom ated exposure control, adjustment of the mA and/or kV according to patient size and/or use of iterati ve reconstruction technique. Electronically signed by: Gerber Benavides 03/24/2019 5:43 AM CDT Due to temporary technical issues with the PACS/Fluency reporting system, reports are being signed by the in house radiologist as a courtesy to ensure prompt reporting. The interpreting radiologist is f ully responsible for the content of the report.
--- NOTE | 2019-03-24 09:59 | RAD REPORT ---
EXAM DESCRIPTION: CT - Head Brain Wo Cont - 03/24/2019 5:48 am CLINICAL HISTORY: Dizziness;Numbness COMPARISON: None available TECHNIQUE: Axial CT of the head obtained from the skull apex to the skull base without contrast. FINDINGS: No acute intracranial hemorrhage identified. No mass, mass effect, shift of the midline, a bnormal extra-axial fluid collection or CT evidence of acute ischemic change identified. The ventricu lar system and sulcal spaces are mildly enlarged compatible with mild cerebral atrophy. Scattered a reas of hypodensity throughout the supratentorial white matter are nonspecific and may be related to chronic small vessel ischemic change. The visualized paranasal sinuses and the mastoids are clear. No skull fracture identified. Visualized orbits and globes are unremarkable. Atherosclerotic anahi cification of the intracranial internal carotid arteries. DLP: 99.6 mGy-cm IMPRESSION: 1. No acute intracranial abnormality by CT criteria. This exam was performed according to our departmental dose-optimization program, which includes autom ated exposure control, adjustment of the mA and/or kV according to patient size and/or use of iterati ve reconstruction technique. Electronically signed by: Gerber Benavides 03/24/2019 3:20 AM CDT Due to temporary technical issues with the PACS/Fluency reporting system, reports are being signed by the in house radiologist as a courtesy to ensure prompt reporting. The interpreting radiologist is f ully responsible for the content of the report.
== END 2019-03-24 08:13 | disposition home or self-care (01) ==
LOC: ER 02:06
DX: K51.50 Left sided colitis without complications (principal); E87.6 Hypokalemia; R11.10 Vomiting, unspecified; R19.7 Diarrhea, unspecified; I10 Essential (primary) hypertension; E78.5 Hyperlipidemia, unspecified; F41.9 Anxiety disorder, unspecified; Z88.0 Allergy status to penicillin
CPT/HCPCS: 96365; 96361; 93005; 85025; 80048; 36415; 83735; 85610; 80076; 84484; 83690; 83880; 70450; 76377; 74176; 71045; 96375; 99285; J2405; J0744

== ENCOUNTER 2019-10-24 23:56 | Emergency (ER) | payer OTHER ==
[2019-10-25] MEDS ORDERED: ONDANSETRON 4 MG/2 ML VIAL ONE ×2 (00:21→03:35)
[2019-10-25] MEDS ORDERED: LORazepam 2 MG/ML VIAL ONE (00:26)
[2019-10-25] MEDS ORDERED: NA CHLORIDE 0.9% 1,000 ML ONE (00:31)
[2019-10-25] MEDS ORDERED: METHYLPREDNISOLONE 125 MG INJ ONE (00:31)
[2019-10-25 00:54] LABS: Protime INR 1.03
[2019-10-25 00:55] LABS: Absolute Lymphocytes (CBC) 4.4 K/uL (0.7-4.9); Basophils % 0.5 % (0-1.3); Hematocrit 39.2 % (36.0-45.0); Lymphocytes % 36.2 % (15.3-44.8); MPV 9.8 fL (7.6-11.3); RBC Red Blood Cell Count 4.51 M/uL (3.86-4.86)
[2019-10-25 01:16] LABS: Sodium Level 140 mmol/L (136-145)
[2019-10-25 01:18] LABS: ALT/SGPT 24 U/L (12-78); AST/SGOT 21 U/L (15-37); Alkaline Phosphatase 98 U/L (45-117); BUN Blood Urea Nitrogen 9 mg/dL (7-18); Bicarbonate 28 mmol/L (21-32); Bilirubin Direct 0.1 mg/dL (0-0.2); Bilirubin Total 0.4 mg/dL (0.2-1.0); Glucose Level 126 mg/dL (74-106); Magnesium 1.9 mg/dL (1.8-2.4); NT PRO-BNP 929 pg/mL (<125); Protein, Total 8.6 g/dL (6.4-8.2)
[2019-10-25 01:28] LABS: Albumin 4.3 g/dL (3.4-5.0)
[2019-10-25] MEDS ORDERED: PROMETHAZINE INJ 25 MG/ML AMP ONE (02:33)
[2019-10-25] MEDS ORDERED: IPRATROPIUM BROM 0.5MG/2.5ML ONE (03:34)
[2019-10-25] MEDS ORDERED: ALBUTEROL 2.5 MG/3 ML NEB SOL ONE (03:34)
[2019-10-25] MEDS ORDERED: POTASSIUM 25 MEQ EFFERV TAB ONE (03:35)
[2019-10-25] MEDS ORDERED: CEFTRIAXONE/SWI 1gm 1 GM/10 ML SYR ONE (03:35)
[2019-10-25] MEDS ORDERED: MORPHINE 4 MG/ML SYR ONE (03:35)
--- NOTE | 2019-10-25 04:19 | EDPHYS ---
Physician Documentation [facility] Name: Marycruz Crawford Age: 69 yrs Sex: Female : 1950 Arrival Date: 10/24/2019 Time: 23:57 Bed 3 Private MD: ED Physician Oni Moyer HPI: 10/25 03:02 This 69 yrs old Female presents to ER via Wheelchair with complaints of Chest pkl Pain, Breathing Difficulty. 03:02 The patient or guardian reports chest pain that is located primarily in the substernal pkl area. Onset: 1 week(s) ago. Associated signs and symptoms: Pertinent positives: cough, headache, sinus congestion, vomiting. The chest pain is described as dull. Historical: - Allergies: 00:40 PENICILLINS; fc - PMHx: 00:40 Panic Attacks; Hypertension; Anxiety; chronic back pain; Hyperlipidemia; Restless leg fc syndrome; - PSHx: 00:40 Tubal ligation; fc - Immunization history:: Last tetanus immunization: unknown, Flu vaccine is up to date. - Social history:: Smoking status: Patient denies any tobacco usage or history of. Patient/guardian denies using alcohol, street drugs. - Ebola Screening: : Patient negative for fever greater than or equal to 101.5 degrees Fahrenheit, and additional compatible Ebola Virus Disease symptoms Patient denies exposure to infectious person Patient denies travel to an Ebola-affected area in the 21 days before illness onset. ROS: 03:02 Eyes: Negative for injury, pain, redness, and discharge, ENT: Negative for injury, pkl pain, and discharge, Neck: Negative for injury, pain, and swelling. 03:02 Cardiovascular: Positive for chest pain, with cough. 03:02 Respiratory: Positive for cough, with green sputum. 03:02 Abdomen/GI: Positive for nausea, vomiting. 03:02 Back: Negative for acute changes. 03:02 : Negative for urinary symptoms. 03:02 MS/extremity: Negative for acute changes. 03:02 Skin: Negative for rash. 03:02 Neuro: Positive for headache. Exam: 03:02 Head/Face: Normocephalic, atraumatic. Eyes: Pupils equal round and reactive to light, pkl extra-ocular motions intact. Lids and lashes normal. Conjunctiva and sclera are non-icteric and not injected. Cornea within normal limits. Periorbital areas with no swelling, redness, or edema. ENT: Nares patent. No nasal discharge, no septal abnormalities noted. Tympanic membranes are normal and external auditory canals are clear. Oropharynx with no redness, swelling, or masses, exudates, or evidence of obstruction, uvula midline. Mucous membranes moist. Neck: Trachea midline, no thyromegaly or masses palpated, and no cervical lymphadenopathy. Supple, full range of motion without nuchal rigidity, or vertebral point tenderness. No Meningismus. Chest/axilla: Normal chest wall appearance and motion. Nontender with no deformity. No lesions are appreciated. Cardiovascular: Regular rate and rhythm with a normal S1 and S2. No gallops, murmurs, or rubs. Normal PMI, no JVD. No pulse deficits. 03:02 Respiratory: the patient does not display signs of respiratory distress, Respirations: normal, Breath sounds: bronchial sounds, that are mild, are scattered, rhonchi, that are mild, are scattered. 03:02 Abdomen/GI: Bowel sounds: normal, Palpation: abdomen is soft and non-tender, in all quadrants. 03:02 Back: Exam negative for acute changes. 03:02 : Exam negative for acute changes. 03:02 Musculoskeletal/extremity: Exam is negative for acute changes. 03:02 Skin: Exam negative for rash. 03:02 Neuro: Orientation: is normal, Mentation: is normal, Cranial nerves: grossly normal, Motor: is normal. Vital Signs: 00:00 BP 179 / 98; Pulse 90; Resp 20; Temp 98.9(O); Pulse Ox 100% on R/A; Weight 68.04 kg fc (R); Height 5 ft. 1 in. (154.94 cm) (R); Pain 10/10; 01:19 Pulse 80; Resp 16 S; Pulse Ox 100% on R/A; jd3 02:34 Pulse 91; Resp 17 S; Pulse Ox 100% on R/A; jd3 03:55 Pulse 85; Resp 17 S; Pulse Ox 100% on R/A; jd3 00:00 Body Mass Index 28.34 (68.04 kg, 154.94 cm) MDM: 00:18 Patient medically screened. pkl 04:16 Data reviewed: vital signs, nurses notes, lab test result(s), EKG, radiologic studies, pkl plain films. 10/25 00:19 Order name: CBC with Diff; Complete Time: 02:56 [facility] 10/25 00:19 Order name: PT-INR; Complete Time: 02:56 10/25 00:27 Order name: Basic Metabolic Panel; Complete Time: 02:56 10/25 00:27 Order name: LFT's; Complete Time: 02:56 10/25 00:27 Order name: Magnesium; Complete Time: 02:56 10/25 00:27 Order name: NT PRO-BNP; Complete Time: 02:56 10/25 00:27 Order name: Troponin (emerg Dept Use Only); Complete Time: 02:56 10/25 00:19 Order name: XRAY Chest (1 view) 10/25 00:19 Order name: EKG; Complete Time: 00:20 10/25 00:19 Order name: Cardiac monitoring; Complete Time: 00: 10/25 00:19 Order name: EKG - Nurse/Tech; Complete Time: 00:10/25 00:19 Order name: IV Saline Lock; Complete Time: 00:10/25 00:19 Order name: Labs collected and sent; Complete Time: 00: 10/25 00:19 Order name: O2 Per Protocol; Complete Time: 00:10/25 00:19 Order name: O2 Sat Monitoring; Complete Time: 00:26 j Administered Medications: 00:25 Drug: Zofran 4 mg Route: IVP; Site: right antecubital; jd3 01:25 Follow up: Response: No adverse reaction jd3 00:28 Drug: Ativan 1 mg Route: IVP; Site: right antecubital; ea 01:25 Follow up: Response: No adverse reaction jd3 00:34 Drug: NS 0.9% 1000 ml Route: IV; Rate: 125 ml/hr; Site: right antecubital; jd3 00:34 Drug: SOLU-Medrol 125 mg Route: IVP; Site: right antecubital; jd3 01:30 Follow up: Response: No adverse reaction jd3 02:33 Drug: Phenergan 12.5 mg Route: IVP; Site: right antecubital; jd3 03:30 Follow up: Response: No adverse reaction ea 03:35 Drug: Zofran 4 mg Route: IVP; Site: right hand; ea 04:41 Follow up: Response: No adverse reaction ea 03:37 Drug: morphine 2 mg Route: IVP; Site: right hand; ea 04:00 Follow up: Response: No adverse reaction; Pain is decreased ea 03:40 Drug: Albuterol - atroVENT (3:1) (2.5 mg - 0.5 mg) 3 ml Route: Nebulizer; ea 04:30 Follow up: Response: No adverse reaction ea 03:53 Drug: K-Lyte Effervescent Tablet 50 mEq Route: PO; ea 04:30 Follow up: Response: No adverse reaction ea 03:53 Drug: Rocephin - (cefTRIAXone) 1 grams Route: IVPB; Infused Over: 30 mins; Site: right ea hand; Disposition: 10/25/19 04:17 Discharged to Home. Impression: Sinusitis. Bronchitis. - Condition is Stable. - Prescriptions for Zithromax Z- Guy 250 mg Oral Tablet - take 1 tablet by ORAL route as directed for 5 days Day 1 - take two (2) tablets one time. Day 2, 3, 4 , 5 take one (1) tablet once daily.; 6 tablet. - Medication Reconciliation Form, Thank You Letter, Antibiotic Education, Prescription Opioid Use, Family Work Release form. - Follow up: Private Physician; When: 2 - 3 days; Reason: Re-evaluation by your physician. - Problem is new. - Symptoms have improved. Signatures: Dispatcher [employer] EDOni Arizmendi MD MD pkl Chretien, Felicia, RN RN fc Antunez, Elena, RN RN ea Davies, Jonathon, RN RN jd3 Corrections: (The following items were deleted from the chart) 00:29 00:27 IV Saline Lock ordered. liza jd3 : 00:27 Labs collected and sent ordered. liza jervin 00:27 Oxygen Per Protocol ordered. liza jd3 00:27 O2 Sat Monitoring ordered. liza jervin : 00:27 Cardiac monitoring ordered. liza jd3 00: 00:27 EKG - Nurse/Tech ordered. liza jd3 00:38 00:20 BASIC METABOLIC PANEL+C.LAB.BRZ ordered. EDKY EDMS 00:38 00:20 HEPATIC FUNCTION+C.LAB.BRZ ordered. EDKY EDKY 00:38 00:20 MAGNESIUM+C.LAB.BRZ ordered. [facility] EDKY 00:38 00:20 PROBNP+C.LAB.BRZ ordered. [facility] EDKY 00:38 00:20 TROPONIN (EMERG DEPT USE ONLY)+C.LAB.BRZ ordered. [facility] EDKY 00:38 00:28 CBC+H.LAB.BRZ ordered. [facility] EDKY 00:38 00:28 PROTIME (+INR)+COAG.LAB.BRZ ordered. [facility] EDKY 00:47 00:28 Chest Single View+RAD.RAD.BRZ ordered. [facility] EDKY 04:39 04:17 10/25/2019 04:17 Discharged to Home. Impression: Sinusitis. Bronchitis. Condition ea is Stable. Forms are Medication Reconciliation Form, Thank You Letter, Antibiotic Education, Prescription Opioid Use. Follow up: Private Physician; When: 2 - 3 days; Reason: Re-evaluation by your physician. Problem is new. Symptoms have improved. pkl
--- NOTE | 2019-10-25 04:19 | ER ---
Nurse's Notes [facility] Name: Marycruz Crawford Age: 69 yrs Sex: Female : 1950 Arrival Date: 10/24/2019 Time: 23:57 Bed 3 Private MD: Diagnosis: Sinusitis. Bronchitis Presentation: 10/25 00:00 Presenting complaint: Patient states: that on and off x 1 week she has been having fc headache, cough, nasal congestion. Then today it got worse and she started having chest pain with deep breathing. Pt is very anxious and upset about home issues (her mother has cancer). Transition of care: patient was not received from another setting of care. Onset of symptoms was October 17, 2019. Risk Assessment: Do you want to hurt yourself or someone else? Patient reports no desire to harm self or others. Initial Sepsis Screen: Does the patient meet any 2 criteria? No. Patient's initial sepsis screen is negative. Does the patient have a suspected source of infection? No. Patient's initial sepsis screen is negative. Care prior to arrival: None. 00:00 Method Of Arrival: Wheelchair fc 00:00 Acuity: ALBERTO 3 fc Historical: - Allergies: 00:40 PENICILLINS; fc - PMHx: 00:40 Panic Attacks; Hypertension; Anxiety; chronic back pain; Hyperlipidemia; Restless leg fc syndrome; - PSHx: 00:40 Tubal ligation; fc - Immunization history:: Last tetanus immunization: unknown, Flu vaccine is up to date. - Social history:: Smoking status: Patient denies any tobacco usage or history of. Patient/guardian denies using alcohol, street drugs. - Ebola Screening: : Patient negative for fever greater than or equal to 101.5 degrees Fahrenheit, and additional compatible Ebola Virus Disease symptoms Patient denies exposure to infectious person Patient denies travel to an Ebola-affected area in the 21 days before illness onset. Screenin:00 Abuse screen: Denies threats or abuse. Nutritional screening: No deficits noted. fc Tuberculosis screening: No symptoms or risk factors identified. Fall Risk None identified. Assessment: 00:15 General: Appears in no apparent distress. uncomfortable, Behavior is cooperative, jd3 appropriate for age, anxious, restless. Pain: Complains of pain in chest Pain does not radiate. Pain began 2-3 days ago. Neuro: Level of Consciousness is awake, alert, obeys commands, Oriented to person, place, time, situation. Cardiovascular: Reports chest pain, Heart tones S1 S2 present Capillary refill < 3 seconds Patient's skin is warm and dry. Rhythm is regular. Respiratory: Reports shortness of breath at rest cough that is persistent Airway is patent Respiratory effort is even, unlabored, Respiratory pattern is regular, symmetrical. GI: Abdomen is round non-distended, Abd is soft X 4 quads Abdomen is tender to palpation X 4 quads. Reports lower abdominal pain, upper abdominal pain, nausea, vomiting. : No signs and/or symptoms were reported regarding the genitourinary system. EENT: No signs and/or symptoms were reported regarding the EENT system. Derm: Skin is intact, Skin is dry, Skin is normal, Skin temperature is warm. Musculoskeletal: Circulation, motion, and sensation intact. Range of motion: intact in all extremities. 00:35 Reassessment: Man reports he was going to wait in the lobby to call if any changes ea occurred Martin (grandson) [phone]. 00:41 Reassessment: Patient appears in no apparent distress at this time. Patient and/or jd3 family updated on plan of care and expected duration. Pain level reassessed. Patient is alert, oriented x 3, equal unlabored respirations, skin warm/dry/pink. pt reports feeling less anxious. 01:18 Reassessment: Patient appears in no apparent distress at this time. No changes from jd3 previously documented assessment. Patient and/or family updated on plan of care and expected duration. Pain level reassessed. Patient is alert, oriented x 3, equal unlabored respirations, skin warm/dry/pink. awaiting results. pt refusing blood pressure reporting it hurts her arm. 02:15 Reassessment: Patient appears in no apparent distress at this time. Patient and/or jd3 family updated on plan of care and expected duration. Pain level reassessed. Patient is alert, oriented x 3, equal unlabored respirations, skin warm/dry/pink. pt becoming restless and not wanting to stay in bed or chair. 03:10 Reassessment: Patient appears in no apparent distress at this time. No changes from jd3 previously documented assessment. Patient and/or family updated on plan of care and expected duration. Pain level reassessed. Patient is alert, oriented x 3, equal unlabored respirations, skin warm/dry/pink. 03:55 Reassessment: Patient appears in no apparent distress at this time. Patient and/or jd3 family updated on plan of care and expected duration. Pain level reassessed. Patient is alert, oriented x 3, equal unlabored respirations, skin warm/dry/pink. pt in bed feeling less restless. 04:31 Reassessment: Patient and/or family updated on plan of care and expected duration. Pain ea level reassessed. Patient is alert, oriented x 3, equal unlabored respirations, skin warm/dry/pink. Discharge instruction given to patient and family, both verbalized the understanding of instruction. Pt left ED via wheelchair per family, pt tolerating well. Pt refused vitals. Vital Signs: 00:00 BP 179 / 98; Pulse 90; Resp 20; Temp 98.9(O); Pulse Ox 100% on R/A; Weight 68.04 kg fc (R); Height 5 ft. 1 in. (154.94 cm) (R); Pain 10/10; 01:19 Pulse 80; Resp 16 S; Pulse Ox 100% on R/A; jd3 02:34 Pulse 91; Resp 17 S; Pulse Ox 100% on R/A; jd3 03:55 Pulse 85; Resp 17 S; Pulse Ox 100% on R/A; jd3 00:00 Body Mass Index 28.34 (68.04 kg, 154.94 cm) fc ED Course: 10/24 23:57 Patient arrived in ED. cl3 10/25 00:00 Arm band placed on Patient placed in an exam room, on a stretcher. fc 00:00 Patient has correct armband on for positive identification. Placed in gown. Bed in low fc position. Call light in reach. Side rails up X 1. school lunch monitor on. Pulse ox on. NIBP on. 00:00 No provider procedures requiring assistance completed. Patient maintains SpO2 fc saturation greater than 95% on room air. 00:14 Triage completed. fc 00:17 Oni Moyer MD is Attending Physician. pkl 00:18 Carlos Ferrari RN is Primary Nurse. jd3 00:49 XRAY Chest (1 view) In Process Unspecified. EDMS 04:30 IV discontinued, intact, bleeding controlled, No redness/swelling at site. Pressure ea dressing applied. Administered Medications: 00:25 Drug: Zofran 4 mg Route: IVP; Site: right antecubital; jd3 01:25 Follow up: Response: No adverse reaction jd3 00:28 Drug: Ativan 1 mg Route: IVP; Site: right antecubital; ea 01:25 Follow up: Response: No adverse reaction jd3 00:34 Drug: NS 0.9% 1000 ml Route: IV; Rate: 125 ml/hr; Site: right antecubital; jd3 00:34 Drug: SOLU-Medrol 125 mg Route: IVP; Site: right antecubital; jd3 01:30 Follow up: Response: No adverse reaction jd3 02:33 Drug: Phenergan 12.5 mg Route: IVP; Site: right antecubital; jd3 03:30 Follow up: Response: No adverse reaction ea 03:35 Drug: Zofran 4 mg Route: IVP; Site: right hand; ea 04:41 Follow up: Response: No adverse reaction ea 03:37 Drug: morphine 2 mg Route: IVP; Site: right hand; ea 04:00 Follow up: Response: No adverse reaction; Pain is decreased ea 03:40 Drug: Albuterol - atroVENT (3:1) (2.5 mg - 0.5 mg) 3 ml Route: Nebulizer; ea 04:30 Follow up: Response: No adverse reaction ea 03:53 Drug: K-Lyte Effervescent Tablet 50 mEq Route: PO; ea 04:30 Follow up: Response: No adverse reaction ea 03:53 Drug: Rocephin - (cefTRIAXone) 1 grams Route: IVPB; Infused Over: 30 mins; Site: right ea hand; Outcome: 04:17 Discharge ordered by . pkgrant 04:33 Condition: stable ea 04:33 Discharge instructions given to patient, family, Instructed on discharge instructions, follow up and referral plans. medication usage, Demonstrated understanding of instructions, follow-up care, medications, Prescriptions given X 2. 04:34 Discharged to home via wheelchair, with family. ea 04:39 Patient left the ED. ea Signatures: Dispatcher [employer] EDMS Oni Moyer MD MD pkl Chretien, Felicia, RN Yessenia Latif RN Carlos Aponte ea, RN RN Gloria High cl3 Corrections: (The following items were deleted from the chart) 04:34 04:31 Reassessment: Patient and/or family updated on plan of care and expected ea duration. Pain level reassessed. Patient is alert, oriented x 3, equal unlabored respirations, skin warm/dry/pink. Discharge instruction given to patient and family, both verbalized the understanding of instruction. Pt left ED via wheelchair per family, pt tolerating well. ea
[2019-10-25 04:44] VITALS: BP 179/98; TEMP 98.9; O2SAT 100
--- NOTE | 2019-10-25 07:21 | RAD REPORT ---
EXAM DESCRIPTION: Tommy Single View10/25/2019 12:47 am CLINICAL HISTORY: Chest pain COMPARISON: March 2019 FINDINGS: The lungs appear clear of acute infiltrate. The heart is normal size IMPRESSION: No acute abnormalities displayed
--- NOTE | 2019-10-26 14:01 | EKG ---
Test Date: 2019-10-25 Test Time: 00:06:46 [employer]: REJI MEASUREMENT RESULTS: Intervals: Rate: 89 CA: 166 QRSD: 98 QT: 394 QTc: 479 Telferner: P: 44 CA: 166 QRS: -21 T: 18 INTERPRETIVE STATEMENTS: Normal sinus rhythm Minimal voltage criteria for LVH, may be normal variant Borderline ECG Compared to ECG 03/24/2019 03:02:49 T-wave abnormality no longer present Possible ischemia no longer present Electronically Signed On 10-26-19 13:59:16 SCANNING MANAGER by Matthias Malin
== END 2019-10-25 04:39 | disposition home or self-care (01) ==
LOC: ER 23:56
DX: J40 Bronchitis, not specified as acute or chronic (principal); J32.9 Chronic sinusitis, unspecified; I10 Essential (primary) hypertension; Z88.0 Allergy status to penicillin
CPT/HCPCS: 93005; 85025; 80048; 36415; 83735; 85610; 80076; 84484; 83880; 71045; 94640; 96375; 96374; 99285; J2550; J0696; J7030; J2930; J2405 ×2

== ENCOUNTER 2021-03-04 01:32 | Inpatient (IN) | payer OTHER ==
[2021-03-04 02:21] LABS: Urine Blood Trace-lysed (Negative); Urine Glucose Negative (Negative); Urine Protein 2+ (Negative); Urine Specific Gravity 1.025 (1.005-1.030)
[2021-03-04 02:39] LABS: Absolute Lymphocytes (CBC) 1.4 K/uL (0.7-4.9); Basophils % 0.3 % (0-1.3); Hematocrit 37.9 % (36.0-45.0); Lymphocytes % 4.4 % (15.3-44.8); MPV 9.4 fL (7.6-11.3); RBC Red Blood Cell Count 4.64 M/uL (3.86-4.86)
[2021-03-04] MEDS ORDERED: ACETAMINOPHEN 500 MG TAB ONE (02:41)
[2021-03-04] MEDS ORDERED: NA CHLORIDE 0.9% 1,000 ML ONE ×2 (02:41→04:03)
[2021-03-04 02:55] LABS: Protime INR 1.04
[2021-03-04 02:55] LABS: Urine Bacteria <20 /HPF (<20); Urine RBC <5 /HPF (NONE SEEN)
[2021-03-04 03:06] LABS: SARS-COV-2 RT PCR NEGATIVE (NEGATIVE)
[2021-03-04 03:12] LABS: ALT/SGPT 17 U/L (12-78); AST/SGOT 18 U/L (15-37); Alkaline Phosphatase 107 U/L (45-117); Amylase 48 U/L (25-115); BUN Blood Urea Nitrogen 9 mg/dL (7-18); Bicarbonate 31 mmol/L (21-32); Bilirubin Direct 0.2 mg/dL (0-0.2); Bilirubin Total 0.5 mg/dL (0.2-1.0); CKMB Creatine Kinase MB < 1.0 ng/mL (0.3-3.6); Creatine Phosphokinase 89 U/L (26-192); Glucose Level 124 mg/dL (74-106); Lipase 113 U/L (73-393); Protein, Total 8.5 g/dL (6.4-8.2); Sodium Level 138 mmol/L (136-145); Troponin (Emerg Dept Use Only) 0.03 ng/mL (0.0-0.045)
[2021-03-04 03:19] LABS: Blood Morphology Comment NOT SEEN (NOT SEEN); Platelet Estimate ADEQ
[2021-03-04 03:21] LABS: Potassium 2.6 mmol/L (3.5-5.1)
[2021-03-04] MEDS ORDERED: Levofloxacin500mg IV 500 MG/100 ML BAG IV ONE (03:32)
[2021-03-04] MEDS ORDERED: METRONIDAZOLE 500mg IVPB 500 MG/100 ML BAG IV ONE (03:33)
[2021-03-04] MEDS ORDERED: ONDANSETRON 4 MG/2 ML VIAL ONE (03:34)
[2021-03-04] MEDS ORDERED: KCL 20 MEQ/100 mL IVPB 20 MEQ/100 ML BAG IV ONE (04:04)
[2021-03-04] MEDS ORDERED: METOCLOPRAMIDE 10 MG/2mL INJ ONE (04:55)
--- NOTE | 2021-03-04 04:56 | ER ---
Nurse's Notes [facility] Name: Marycruz Crawford Age: 70 yrs Sex: Female : 1950 Arrival Date: 03/04/2021 Time: 01:47 Bed 6 Private MD: Diagnosis: Fever, unspecified;Generalized abdominal pain;Leukocytosis Presentation: 03/04 02:10 Chief complaint: Patient states: I am having head, stomach, back pain started several rr5 weeks and now it gets worse. I also having cough and burning urination. 02:10 Coronavirus screen: Client denies travel out of the [place] in the last 14 days. cough rr5 unrelated to allergies, Client presents with at least one sign or symptom that may indicate coronavirus-19. Standard/surgical mask placed on the client. Provider contacted for isolation considerations. Ebola Screen: Patient negative for fever greater than or equal to 101.5 degrees Fahrenheit, and additional compatible Ebola Virus Disease symptoms Patient denies exposure to infectious person. Patient denies travel to an Ebola-affected area in the 21 days before illness onset. Initial Sepsis Screen: Does the patient meet any 2 criteria? Temp <36.0*C (96.8*F)) or > 38.3*C (100.9*F). HR > 90 bpm. Does the patient have a suspected source of infection? Yes: Productive cough/pneumonia Dysuria/Frequency/Urgency/UTI. Risk Assessment: Do you want to hurt yourself or someone else? Patient reports no desire to harm self or others. Onset of symptoms was March 04, 2021. 02:10 Method Of Arrival: Ambulatory rr5 02:10 Acuity: ALBERTO 2 rr5 Historical: - Allergies: 02:15 PENICILLINS; rr5 - Home Meds: 02:15 cyclobenzaprine 10 mg Oral tab 1 tab 2 times per day [Active]; Lorazepam Oral [Active]; rr5 losartan 50 mg Oral tab 1 tab once daily [Active]; simvastatin 40 mg Oral tab nightly [Active]; [place] 10-325 mg Oral tab 1 tab every 6 hours [Active]; trazodone 50 mg Oral tab nightly [Active]; - PMHx: 02:15 Anxiety; chronic back pain; Hyperlipidemia; Hypertension; Panic Attacks; restless leg rr5 syndrome; - PSHx: 02:15 Appendectomy; Tubal ligation; D \T\ C; rr5 - Immunization history:: Adult Immunizations not up to date. - Social history:: Smoking status: unknown. Screenin:16 Abuse screen: Denies threats or abuse. Denies injuries from another. Nutritional rr5 screening: No deficits noted. Tuberculosis screening: No symptoms or risk factors identified. Fall Risk IV access (20 points). Total Bennett Fall Scale indicates No Risk (0-24 pts). Assessment: 02:10 General: Appears in no apparent distress. uncomfortable, Behavior is appropriate for rr5 age. 02:10 Pain: Complains of pain in head, stomach and back Pain currently is 10 out of 10 on a rr5 pain scale. Quality of pain is described as aching, Pain began gradually, Is intermittent. Neuro: Level of Consciousness is awake, alert, obeys commands, Oriented to person, place, time. Cardiovascular: Capillary refill < 3 seconds Patient's skin is warm and dry. Respiratory: Reports cough that is Airway is patent Respiratory effort is even, unlabored, Respiratory pattern is regular, symmetrical. GI: Abdomen is round non-distended, obese, Reports upper abdominal pain, nausea, vomiting. : Reports burning with urination, urinary frequency. EENT: No signs and/or symptoms were reported regarding the EENT system. Derm: Skin is intact, is healthy with good turgor, Skin temperature is warm. Musculoskeletal: Capillary refill < 3 seconds, Reports pain in head, stomach and back. 03:15 GI: Pt is actively vomiting clear fluid, undigested food. rr5 03:15 Reassessment: ED provider aware with order made and carried out. rr5 03:34 Reassessment: Patient appears in no apparent distress at this time. Patient is alert, rr5 oriented x 3, equal unlabored respirations, skin warm/dry/pink. 04:41 Reassessment: pt vomiting Dr Dobson notified new orders received pt medicated see DEC. bb 05:30 Reassessment: Patient appears in no apparent distress at this time. Patient is alert, rr5 oriented x 3, equal unlabored respirations, skin warm/dry/pink. walked going to restroom steady gait noted, potassium drip decreased to 30 ml/hr patient complaining of pain in IV site. Vital Signs: 02:10 BP 162 / 92; Pulse 105; Resp 19; Temp 101.5; Pulse Ox 96% ; Weight 68.04 kg; Height 5 rr5 ft. 1 in. (154.94 cm); Pain 10/10; 03:09 BP 155 / 81; Pulse 85; Resp 17; Pulse Ox 98% ; rr5 03:50 BP 147 / 85; Pulse 80; Resp 16; Temp 101.8(O); Pulse Ox 98% ; rr5 05:00 BP 146 / 89; Pulse 89; Resp 17; Temp 99.8; Pulse Ox 98% ; rr5 06:00 BP 160 / 86; Pulse 79; Resp 19; Temp 98.9(TE); Pulse Ox 98% ; rr5 02:10 Body Mass Index 28.34 (68.04 kg, 154.94 cm) rr5 ED Course: 01:47 Patient arrived in ED. bb 02:10 Miguel Angel Seaman, RN is Primary Nurse. rr5 02:10 Patient has correct armband on for positive identification. Bed in low position. Call jb4 light in reach. Side rails up X2. mobile qa tester on. Pulse ox on. NIBP on. 02:12 Xavi Dobson MD is Attending Physician. mh7 02:14 Triage completed. rr5 02:16 Arm band placed on right wrist. rr5 02:30 Inserted saline lock: 22 gauge in right antecubital area, using aseptic technique. ds4 Blood collected. Missed attempt(s): 20 gauge in left forearm. Bleeding controlled, band aid applied, catheter tip intact. 02:52 Chest Single View XRAY In Process Unspecified. EDMS 03:02 Notified ED physician of a critical lab result(s). WBCs of 31.8. Dr Dobson notified. bb 03:30 Second set of blood cultures drawn by la. rr5 03:30 Inserted saline lock: 20 gauge in left hand, using aseptic technique. rr5 03:49 CT Abd/Pelvis - Without Contrast In Process Unspecified. EDMS 04:54 Miguel Angel Kennedy MD is Hospitalizing Provider. mh7 05:06 Chest Abdomen Pelvis W Con CT In Process Unspecified. EDMS 06:08 No provider procedures requiring assistance completed. Patient admitted, IV remains in jb4 place. intact, No redness/swelling at site. Administered Medications: 02:34 Drug: Tylenol 1000 mg Route: PO; rr5 04:50 Follow up: Response: No adverse reaction; Temperature is unchanged rr5 02:35 Drug: NS 0.9% (30 ml/kg) 30 ml/kg Route: IV; Rate: bolus; Site: right antecubital; rr5 06:00 Follow up: Response: No adverse reaction; IV Status: Completed infusion; IV Intake: rr5 2000ml 03:25 Drug: Zofran (Ondansetron) 4 mg Route: IVP; Site: right antecubital; rr5 04:25 Follow up: Response: No adverse reaction rr5 03:31 Drug: Flagyl (metroNIDAZOLE) 500 mg Volume: 100 ml; Route: IVPB; Rate: 200 ml/hr; rr5 Infused Over: 30 mins; Site: right antecubital; 03:51 Drug: Potassium Chloride 20 mEq Route: IV; Rate: calculated rate; Site: left hand; rr5 06:00 Follow up: Response: No adverse reaction; IV Status: Infusion continued upon admission; rr5 IV Intake: 50ml 04:30 Drug: LevaQUIN (levofloxacin) 500 mg Volume: 100 ml; Route: IVPB; Infused Over: 60 rr5 mins; Site: left hand; 05:30 Follow up: Response: No adverse reaction; IV Status: Completed infusion; IV Intake: rr5 100ml 04:40 Drug: Reglan (metoCLOPramide) 10 mg Route: IVP; Site: left wrist; bb 05:40 Follow up: Response: No adverse reaction rr5 04:55 Drug: Ibuprofen 800 mg Route: PO; rr5 06:00 Follow up: Response: No adverse reaction rr5 Intake: 05:30 IV: 100ml; Total: 100ml. rr5 06:00 IV: 50ml; Total: 150ml. rr5 06:00 IV: 2000ml; Total: 2150ml. rr5 Outcome: 04:55 Decision to Hospitalize by Provider. [facility] 06:08 Admitted to Med/surg accompanied by meghann, via wheelchair, room 221, with chart, Report jb4 called to linda 06:08 Condition: stable 06:08 Instructed on the need for admit. 06:25 Patient left the ED. jb4 Signatures: Dispatcher [facility] Mariola Mills, RN RN bb Alexandro Sanches ds4 Matt Haney RN RN jb4 Miguel Angel Seaman RN RN rr5 Xavi Dobson MD MD mh7 Corrections: (The following items were deleted from the chart) 03:39 02:10 : No signs and/or symptoms were reported regarding the genitourinary system. rr5rr5
--- NOTE | 2021-03-04 04:56 | EDPHYS ---
Physician Documentation [facility] Name: Marycruz Crawford Age: 70 yrs Sex: Female : 1950 Arrival Date: 03/04/2021 Time: 01:47 Bed 6 Private MD: ED Physician Xavi Dobson HPI: 03/04 03:55 This 70 yrs old Female presents to ER via Ambulatory with complaints of mh7 stomach and back pain. 03:55 The patient presents with abdominal pain that is diffuse. Onset: The symptoms/episode mh7 began/occurred 2 day(s) ago. The symptoms radiate to back. 03:56 Associated signs and symptoms: Pertinent positives: dysuria, Pertinent negatives: mh7 nausea, vomiting, and diarrhea, nausea and vomiting, anorexia, blood in stools, chest pain, constipation, diarrhea, headache, hematuria, nausea, palpitations, shortness of breath, vaginal discharge, vomiting, vomiting blood. The symptoms are described as intermittent, vague, waxing/waning. Modifying factors: The symptoms are alleviated by nothing, the symptoms are aggravated by nothing. Severity of pain: At its worst the pain was moderate last night, in the emergency department the pain is unchanged. Historical: - Allergies: 02:15 PENICILLINS; rr5 - Home Meds: 02:15 cyclobenzaprine 10 mg Oral tab 1 tab 2 times per day [Active]; Lorazepam Oral [Active]; rr5 losartan 50 mg Oral tab 1 tab once daily [Active]; simvastatin 40 mg Oral tab nightly [Active]; [place] 10-325 mg Oral tab 1 tab every 6 hours [Active]; trazodone 50 mg Oral tab nightly [Active]; - PMHx: 02:15 Anxiety; chronic back pain; Hyperlipidemia; Hypertension; Panic Attacks; restless leg rr5 syndrome; - PSHx: 02:15 Appendectomy; Tubal ligation; D \T\ C; rr5 - Immunization history:: Adult Immunizations not up to date. - Social history:: Smoking status: unknown. ROS: 03:56 Constitutional: Negative for fever, chills, and weight loss, Eyes: Negative for injury, mh7 pain, redness, and discharge, ENT: Negative for injury, pain, and discharge, Neck: Negative for injury, pain, and swelling, Cardiovascular: Negative for chest pain, palpitations, and edema, Respiratory: Negative for shortness of breath, cough, wheezing, and pleuritic chest pain, MS/Extremity: Negative for injury and deformity, Skin: Negative for injury, rash, and discoloration, Neuro: Negative for headache, weakness, numbness, tingling, and seizure, Psych: Negative for depression, anxiety, suicide ideation, homicidal ideation, and hallucinations, Allergy/Immunology: Negative for hives, rash, and allergies, Endocrine: Negative for neck swelling, polydipsia, polyuria, polyphagia, and marked weight changes, Hematologic/Lymphatic: Negative for swollen nodes, abnormal bleeding, and unusual bruising. Exam: 03:56 Constitutional: This is a well developed, well nourished patient who is awake, alert, mh7 and in no acute distress. Head/Face: Normocephalic, atraumatic. Eyes: Pupils equal round and reactive to light, extra-ocular motions intact. Lids and lashes normal. Conjunctiva and sclera are non-icteric and not injected. Cornea within normal limits. Periorbital areas with no swelling, redness, or edema. Neck: Trachea midline, no thyromegaly or masses palpated, and no cervical lymphadenopathy. Supple, full range of motion without nuchal rigidity, or vertebral point tenderness. No Meningismus. Chest/axilla: Normal chest wall appearance and motion. Nontender with no deformity. No lesions are appreciated. Cardiovascular: Regular rate and rhythm with a normal S1 and S2. No gallops, murmurs, or rubs. Normal PMI, no JVD. No pulse deficits. Respiratory: Lungs have equal breath sounds bilaterally, clear to auscultation and percussion. No rales, rhonchi or wheezes noted. No increased work of breathing, no retractions or nasal flaring. 03:56 Back: No spinal tenderness. No costovertebral tenderness. Full range of motion. Skin: Warm, dry with normal turgor. Normal color with no rashes, no lesions, and no evidence of cellulitis. Neuro: Awake and alert, GCS 15, oriented to person, place, time, and situation. Cranial nerves II-XII grossly intact. Motor strength 5/5 in all extremities. Sensory grossly intact. Cerebellar exam normal. Normal gait. Psych: Awake, alert, with orientation to person, place and time. Behavior, mood, and affect are within normal limits. 03:56 Abdomen/GI: Inspection: abdomen appears normal, Bowel sounds: normal, in all quadrants, Palpation: mild abdominal tenderness, in all quadrants, mass, is not appreciated, rebound tenderness, is not appreciated, voluntary guarding, is not appreciated, involuntary guarding, is not appreciated, no appreciated organomegaly, Rectal exam: the exam is deferred, because of patient request, Indicators: McBurney's point is not tender, Harley's sign is negative, Rovsing's sign is negative, Obturator sign is negative, Psoas sign is negative, Liver: no appreciated palpable abnormalities, Hernia: not appreciated. Vital Signs: 02:10 BP 162 / 92; Pulse 105; Resp 19; Temp 101.5; Pulse Ox 96% ; Weight 68.04 kg; Height 5 rr5 ft. 1 in. (154.94 cm); Pain 10/10; 03:09 BP 155 / 81; Pulse 85; Resp 17; Pulse Ox 98% ; rr5 03:50 BP 147 / 85; Pulse 80; Resp 16; Temp 101.8(O); Pulse Ox 98% ; rr5 05:00 BP 146 / 89; Pulse 89; Resp 17; Temp 99.8; Pulse Ox 98% ; rr5 06:00 BP 160 / 86; Pulse 79; Resp 19; Temp 98.9(TE); Pulse Ox 98% ; rr5 02:10 Body Mass Index 28.34 (68.04 kg, 154.94 cm) rr5 MDM: 04:52 Differential diagnosis: appendicitis, bowel obstruction, cholecystitis, Cholelithiasis, mh7 diverticulitis, gastritis, gastroesophageal reflux disease, non-specific abd pain, pancreatitis, Peptic Ulcer Disease, Pyelonephritis, Ureterolithiasis, urinary tract infection. Data reviewed: vital signs, nurses notes, EMS record, lab test result(s), amylase and lipase, cardiac enzymes, CBC, drug level(s), electrolytes, urinalysis, EKG, radiologic studies, CT scan, plain films. Data interpreted: Pulse oximetry: on room air is 98 %. Interpretation: normal. Counseling: I had a detailed discussion with the patient and/or guardian regarding: the historical points, exam findings, and any diagnostic results supporting the discharge/admit diagnosis, the presence of at least one elevated blood pressure reading (>120/80) during this emergency department visit, lab results, radiology results, the need for further work-up and treatment in the hospital. Response to treatment: the patient's symptoms have mildly improved after treatment. 04:55 Patient medically screened. [facility] 03/04 02:11 Order name: Amylase, Serum [facility] 03/04 02:11 Order name: Basic Metabolic Panel [facility] 03/04 02:11 Order name: Blood Culture Adult (2) [facility] 03/04 02:11 Order name: CBC with Diff; Complete Time: 03:41 [facility] 03/04 02:11 Order name: Ckmb; Complete Time: 03:41 [facility] 03/04 02:11 Order name: CPK; Complete Time: 03:41 [facility] 03/04 02:11 Order name: Lactate; Complete Time: 03:08 [facility] 03/04 02:11 Order name: LFT's; Complete Time: 03:41 [facility] 03/04 02:11 Order name: Lipase; Complete Time: 03:41 [facility] 03/04 02:11 Order name: Procalcitonin; Complete Time: 03:41 [facility] 03/04 02:11 Order name: Protime (+inr); Complete Time: 03:08 [facility] 03/04 02:11 Order name: Ptt, Activated; Complete Time: 03:08 [facility] 03/04 02:11 Order name: Troponin (emerg Dept Use Only); Complete Time: 03:41 [facility] 03/04 02:11 Order name: Urine Microscopic Only; Complete Time: 03:08 [facility] 03/04 02:11 Order name: Chest Single View XRAY [facility] 03/04 02:11 Order name: Amylase; Complete Time: 03:41 [facility] 03/04 02:11 Order name: Basic Metabolic Panel; Complete Time: 03:41 [facility] 03/04 02:20 Order name: Urine Dipstick-Ancillary; Complete Time: 02:52 [facility] 03/04 02:53 Order name: CT Abd/Pelvis - Without Contrast [facility] 03/04 02:54 Order name: Glucose, Ancillary Testing; Complete Time: 03:08 [facility] 03/04 03:02 Order name: Manual Differential; Complete Time: 03:41 [facility] 03/04 03:06 Order name: COVID-19/FLU A+B; Complete Time: 03:08 [facility] 03/04 04:29 Order name: Chest Abdomen Pelvis W Con CT la1 03/04 02:11 Order name: Accucheck; Complete Time: 02:43 rr5 03/04 02:11 Order name: Cardiac monitoring; Complete Time: 02:33 rr5 03/04 02:11 Order name: EKG - Nurse/Tech; Complete Time: 02:33 rr5 03/04 02:11 Order name: IV Saline Lock - Large Bore; Complete Time: 02:33 rr5 03/04 02:11 Order name: Labs collected and sent; Complete Time: 02:33 rr5 03/04 02:11 Order name: O2 Per Protocol; Complete Time: 02:33 rr5 03/04 02:11 Order name: O2 Sat Monitoring; Complete Time: 02:34 rr5 03/04 02:11 Order name: Urine Dipstick-Ancillary (obtain specimen); Complete Time: 02:35 rr5 Administered Medications: 02:34 Drug: Tylenol 1000 mg Route: PO; rr5 04:50 Follow up: Response: No adverse reaction; Temperature is unchanged rr5 02:35 Drug: NS 0.9% (30 ml/kg) 30 ml/kg Route: IV; Rate: bolus; Site: right antecubital; rr5 06:00 Follow up: Response: No adverse reaction; IV Status: Completed infusion; IV Intake: rr5 2000ml 03:25 Drug: Zofran (Ondansetron) 4 mg Route: IVP; Site: right antecubital; rr5 04:25 Follow up: Response: No adverse reaction rr5 03:31 Drug: Flagyl (metroNIDAZOLE) 500 mg Volume: 100 ml; Route: IVPB; Rate: 200 ml/hr; rr5 Infused Over: 30 mins; Site: right antecubital; 03:51 Drug: Potassium Chloride 20 mEq Route: IV; Rate: calculated rate; Site: left hand; rr5 06:00 Follow up: Response: No adverse reaction; IV Status: Infusion continued upon admission; rr5 IV Intake: 50ml 04:30 Drug: LevaQUIN (levofloxacin) 500 mg Volume: 100 ml; Route: IVPB; Infused Over: 60 rr5 mins; Site: left hand; 05:30 Follow up: Response: No adverse reaction; IV Status: Completed infusion; IV Intake: rr5 100ml 04:40 Drug: Reglan (metoCLOPramide) 10 mg Route: IVP; Site: left wrist; bb 05:40 Follow up: Response: No adverse reaction rr5 04:55 Drug: Ibuprofen 800 mg Route: PO; rr5 06:00 Follow up: Response: No adverse reaction rr5 Disposition: 03/04/21 04:55 Hospitalization ordered by Miguel Angel Kennedy for Inpatient Admission. Preliminary diagnosis are Fever, unspecified, Generalized abdominal pain, Leukocytosis. - Bed requested for Telemetry/MedSurg (Inpatient). - Status is Inpatient Admission. jb4 - Condition is Stable. - Problem is new. - Symptoms have improved. Signatures: Dispatcher [employer] EDMS Mariola Flores RN RN bb Chad Ulloa, NINO-C [employer]ER-Cla1 Angelica Aviles RN RN Matt Haney RN RN jb4 Miguel Angel Seaman RN RN rr5 Xavi Dobson MD MD mh7 Corrections: (The following items were deleted from the chart) 02:22 02:12 CORONAVIRUS+MR.LAB.BRZ ordered. EDMS EDMS 02:23 02:12 Influenza Screen (A \T\ B)+BA.LAB.BRZ ordered. [facility] EDMS 05:34 04:55 Hospitalization Ordered by Miguel Angel Kennedy MD for Inpatient Admission. Preliminary cg diagnosis is Fever, unspecified; Generalized abdominal pain; Leukocytosis. Bed requested for Telemetry/MedSurg (Inpatient). Status is Inpatient Admission. Condition is Stable. Problem is new. Symptoms have improved. mh7 06:25 05:34 03/04/2021 04:55 Hospitalization Ordered by Miguel Angel Kennedy MD for Inpatient jb4 Admission. Preliminary diagnosis is Fever, unspecified; Generalized abdominal pain; Leukocytosis. Bed requested for Telemetry/MedSurg (Inpatient). Status is Inpatient Admission. Condition is Stable. Problem is new. Symptoms have improved. cg
[2021-03-04] MEDS ORDERED: IBUPROFEN 400 MG TAB ONE (05:15)
--- NOTE | 2021-03-04 05:24 | P.HP ---
Certification for Inpatient Patient admitted to: Inpatient With expected LOS: >2 Midnights Patient will require the following post-hospital care: None Practitioner: I am a practitioner with admitting privileges, knowledge of patient current condition, hospital course, and medical plan of care. Services: Services provided to patient in accordance with Admission requirements found in Title 42 Section 412.3 of the Code of Federal Regulations Patient History Date of Service: 03/04/21 Reason for admission: Abdominal pain, fever History of Present Illness: 70-year-old female with history of hypertension, hyperlipidemia presents emergency department for abdominal/back pain, fever. Patient reports that she has had on and off abdominal/back pain over the course of the last 1-2 months although it has been worse over the course of the last 24 hr as well as fever that started today. Patient with history of colitis in the past. Workup in the emergency department, white blood cell count 31.8 with left shift potassium 2.6 GFR 45 glucose 124 pro calcitonin 4.7 urinalysis negative for signs of infection flu, leiva virus testing negative. CT abdomen pelvis without contrast negative for any acute findings., CT chest abdomen pelvis with contrast pending for further evaluation of significant leukocytosis and fever. ED provider wishes to admit for further evaluation and management. Allergies aspirin Allergy (Intermediate, Verified 03/09/15 02:36) Nausea/Vomiting Penicillins Allergy (Intermediate, Verified 03/09/12 19:24) Hives Home Medications: Benzonatate [Tessalon Perle*] 200 mg PO TIDP PRN 03/08/15 Cyclobenzaprine [Flexeril*] 10 mg PO BEDTIME PRN PRN 03/08/15 Escitalopram [Lexapro*] 10 mg PO BEDTIME 03/08/15 Levothyroxine [Synthroid*] 50 mcg PO DAILY 03/08/15 Losartan Potassium [Cozaar*] 50 mg PO DAILY 03/08/15 clonazePAM [Klonopin*] 1 mg PO BIDP PRN #60 tab 03/11/15 Docusate [Colace Cap*] 100 mg PO BID #60 cap 01/23/18 Metoprolol Tartrate [Lopressor*] 12.5 mg PO BID 6AM 6PM #30 tab 01/23/18 Polyethyl Gly 3350 [Glycolax*] 17 gm PO DAILY #1 udbot 01/23/18 levoFLOXacin [Levaquin] 500 mg PO DAILY #6 tab 01/23/18 metroNIDAZOLE [Flagyl] 500 mg PO Q8H #6 tablet 01/23/18 - Past Medical/Surgical History Diabetic: No -: depression -: HTN -: hypothyroidism -: Irritable bowel syndrome -: panic attacks -: chronic back pain -: sleep apnea -: tonsillectomy -: nose sx -: tubal ligation Psychosocial/ Personal History: Patient is a retired [employer], lives with her father - Family History Mother -: Cancer - Social History Smoking Status: Never smoker Alcohol use: No CD- Drugs: No Place of Residence: Home Review of Systems 10-point ROS is otherwise unremarkable General: Fever, Chills, Malaise Respiratory: Cough Gastrointestinal: Nausea, Vomiting, Abdominal Pain, Constipation Genitourinary: Unremarkable Physical Examination - Physical Exam General: Alert, In no apparent distress, Oriented x3 HEENT: Atraumatic, PERRLA, Mucous membr. moist/pink, EOMI, Sclerae nonicteric Neck: Supple, 2+ carotid pulse no bruit, No LAD, Without JVD or thyroid abnormality Respiratory: Clear to auscultation bilaterally, Normal air movement Cardiovascular: Regular rate/rhythm, Normal S1 S2 Gastrointestinal: Normal bowel sounds, No rebound, No guarding, Tenderness (Mild generalized abdominal tenderness) Musculoskeletal: No contractures, No erythema, No tenderness Integumentary: No rashes Neurological: Normal speech, Normal strength at 5/5 x4 extr, Normal tone, Normal affect Lymphatics: No axilla or inguinal lymphadenopathy - Studies Laboratory Data (last 24 hrs) 03/04/21 02:28: PT 12.0, INR 1.04, APTT 28.3 03/04/21 02:28: WBC 31.80 H*, Hgb 12.3, Hct 37.9, Plt Count 327 03/04/21 02:28: Sodium 138, Potassium 2.6 L*, BUN 9, Creatinine 1.18, Glucose 124 H, Total Bilirubin 0.5, AST 18, ALT 17, Alkaline Phosphatase 107, Amylase 48, Lipase 113 Assessment and Plan - Plan Assessment Abdominal pain, fever, leukocytosis Hypokalemia Renal insufficiency Hypertension, hypothyroidism, GERD, chronic pain Plan Abdominal pain, fever, leukocytosis: CT abdomen pelvis without any acute findings, CT chest abdomen pelvis with contrast pending, will order abdominal ultrasound to rule out gallbladder pathology. Patient reports fever began last night, does have a history of colitis. Patient denies any diarrhea, urinary symptoms. No signs of UTI on urine dip or micro. Mild to moderate generalized abdominal tenderness noted on exam, patient was some nausea as well. Will also consult infectious disease as patient is without definitive source of fever, leukocytosis. DVT prophylaxis Lovenox 40 mg subcutaneous once daily. Hypokalemia: Potassium protocol in place. Renal insufficiency: Will provide patient IV fluids, recheck labs. Hypertension, hypothyroidism, GERD, chronic pain: Stable, continue home medications. Discharge Plan: Home Plan to discharge in: Greater than 2 days - Advance Directives Does patient have a Living Will: No Does patient have a Durable POA for Healthcare: No - Code Status/Comfort Care Code Status Assessed: Yes (Full code) Critical Care: No Time Spent Managing Pts Care (In Minutes): 55
[2021-03-04] MEDS ORDERED: SODIUM CHLORIDE 0.9% 10ML INJ IV PRN (06:40)
[2021-03-04] MEDS: D5.45NS W/KCL 20MEQ 1,000 ML IV SCH ×2 (06:49→17:15)
[2021-03-04 08:02] VITALS: BMI 28.8
--- NOTE | 2021-03-04 08:24 | RAD REPORT ---
EXAM DESCRIPTION: RAD - Chest Single View - 03/04/2021 2:52 am CLINICAL HISTORY: COUGH Chest pain. COMPARISON: Chest Single View dated 10/25/2019; Chest Single View dated 03/24/2019; Chest Single View dated 12/11/2018; Chest Single View dated 01/19/2018 FINDINGS: Portable technique limits examination quality. The lungs are grossly clear. The heart is normal in size. No displaced fractures. IMPRESSION: No acute intrathoracic process suspected.
[2021-03-04] MEDS: MORPHINE 2 MG/ML SYR IV PRN ×4 (08:46→23:49)
[2021-03-04] MEDS: PANTOPRAZOLE 40 MG INJ IVP SCH (08:47)
[2021-03-04] MEDS: ONDANSETRON 4 MG/2 ML VIAL IV PRN ×2 (08:47→22:02)
[2021-03-04] MEDS: METRONIDAZOLE 500mg IVPB 500 MG/100 ML BAG IV SCH ×2 (08:52→17:16)
[2021-03-04] MEDS: ENOXAPARIN 40 MG/0.4 ML SQ SCH (08:52)
--- NOTE | 2021-03-04 09:10 | RAD REPORT ---
EXAM DESCRIPTION: US - Abdomen Exam Limited - 03/04/2021 8:31 am CLINICAL HISTORY: RUQ eval gallbladder/liver COMPARISON: ABDOMINAL EXAM LIMITED dated 09/20/2011 FINDINGS: The gallbladder demonstrates no gallstones. No pericholecystic fluid or gallbladder wall t hickening. The common bile duct is normal measuring 4 mm. The liver demonstrates mild fatty liver. IMPRESSION: Negative gallbladder/ biliary tree. Mild fatty liver.
[2021-03-04 10:33] LABS: Absolute Lymphocytes (CBC) 2.2 K/uL (0.7-4.9); Basophils % 0.3 % (0-1.3); Hematocrit 34.9 % (36.0-45.0); Lymphocytes % 6.7 % (15.3-44.8); MPV 9.7 fL (7.6-11.3); RBC Red Blood Cell Count 4.27 M/uL (3.86-4.86)
[2021-03-04 10:51] LABS: Albumin 3.3 g/dL (3.4-5.0); Bilirubin Total 0.4 mg/dL (0.2-1.0); C-Reactive Protein 96.4 mg/L (<3.00); Potassium 3.4 mmol/L (3.5-5.1); Protein, Total 7.6 g/dL (6.4-8.2)
--- NOTE | 2021-03-04 11:11 | P.CNS ---
Date of Consult: 03/04/21 Chief Complaint: Abdominal pain, fever History of Present Illness: Patient is a 70-year-old female with a past medical history of hypertension, hyperlipidemia who presented to the emergency department due to abdominal/back pain and fever. Patient reports that she has had this pain for the past 1-2 months however it has worsened over the past 24 hr what resulted in her coming to the emergency department. Patient has history of colitis in the past. CT abdomen and pelvis showed cystitis in colitis. Patient has been started on metronidazole and Levaquin. Patient states that she has not had a bowel movement for the past week, she states she does have irritable bowel syndrome. She is complaining and to the diffuse abdominal pain. She denies nausea or vomiting, shortness breath, chest pain. 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 father - Family History Mother Medical History: Cancer - Social History Smoking Status: Unknown if ever smoked Alcohol use: No CD- Drugs: No Place of Residence: Home Review of Systems 10-point ROS is otherwise unremarkable Physical Examination Temp Pulse Resp BP Pulse Ox 98.4 F 63 16 142/64 H 95 03/04/21 07:00 03/04/21 07:00 03/04/21 09:16 03/04/21 07:00 03/04/21 07:00 General: Alert, In no apparent distress HEENT: Atraumatic, Normocephalic Neck: Supple Respiratory: Clear to auscultation bilaterally, Normal air movement Cardiovascular: No edema, Normal pulses Capillary refill: <2 Seconds Gastrointestinal: Tenderness Musculoskeletal: No clubbing, No contractures Integumentary: No rashes, No breakdown, No significant lesion Laboratory Data (last 24 hrs) 03/04/21 02:28: PT 12.0, INR 1.04, APTT 28.3 03/04/21 02:28: WBC 31.80 H*, Hgb 12.3, Hct 37.9, Plt Count 327 03/04/21 02:28: Sodium 138, Potassium 2.6 L*, BUN 9, Creatinine 1.18, Glucose 124 H, Total Bilirubin 0.5, AST 18, ALT 17, Alkaline Phosphatase 107, Amylase 48, Lipase 113 Conclusions/Impression: Antibiotics: -metronidazole Start: 03/04 Stop: -- Levaquin start: 03/04 stop: -- Assessment: -colitis -renal insufficiency -hypertension -hyperthyroidism Plan: -continue metronidazole Levaquin. Continue to monitor CBC, patient has high WBC of left shift. Monitor fever curve. -medical management per primary team -continue to monitor CBC and BMP -continue to monitor for signs infection Plan of care discussed with Dr. Shoemaker Thank you for consultation
--- NOTE | 2021-03-04 11:55 | EKG ---
Test Date: 2021-03-04 Test Time: 02:27:23 Residency Program Coordinator: RR MEASUREMENT RESULTS: Intervals: Rate: 91 OK: 154 QRSD: 90 QT: 348 QTc: 428 [place]: P: 50 OK: 154 QRS: -5 T: 256 INTERPRETIVE STATEMENTS: Normal sinus rhythm Left ventricular hypertrophy with repolarization abnormality Abnormal ECG Compared to ECG 10/25/2019 00:06:46 Early repolarization now present Electronically Signed On 03-04-21 11:54:01 CDT by Matthias Malin
[2021-03-04 12:39] LABS: Blood Morphology Comment NOT SEEN (NOT SEEN); Platelet Estimate ADEQ
[2021-03-04] MEDS ORDERED: POTASSIUM 25 MEQ EFFERV TAB PO ONE (14:00)
--- NOTE | 2021-03-04 19:04 | RAD REPORT ---
EXAM DESCRIPTION: CT Abdomen and Pelvis COMPARISON: None. CLINICAL HISTORY: [facility] MAIN ABD PAIN TECHNIQUE: CT of the abdomen and pelvis was acquired without IV contrast material. Coronal and sag ittal reconstructions were obtained. Automated exposure control was utilized on this examination as a dose lowering technique. FINDINGS: Lung bases: Clear. *Evaluation of solid organs is limited due to lack of IV contrast. Liver: Normal. Gallbladder and biliary: Normal gallbladder. Unremarkable biliary tree. Pancreas: Normal. Spleen: Normal. Adrenal glands: Normal adrenal glands. Kidneys: Normal kidneys Stomach and Small Bowel: The stomach and small bowel are normal. Urinary bladder: Normal. Uterus and Adnexa: Normal. Colon and Appendix: Tortuous colon with the cecum near midline. No evidence of appendicitis. Retroperitoneum and lymph nodes: Normal. Vascular: Mild atherosclerosis. Peritoneal cavity: No ascites or free air. Musculoskeletal and soft tissues: Soft tissues are unremarkable. There are chronic degenerative hector es of the right sacroiliac joint. No aggressive bone lesions. No compression fracture. IMPRESSION: No acute intra-abdominal abnormality. Electronically signed by: Conrad Bledsoe MD 03/04/2021 4:06 AM CDT Due to temporary technical issues with the PACS/Fluency reporting system, reports are being signed by the in house radiologists without review as a courtesy to insure prompt reporting. The interpreting radiologist is fully responsible for the content of the report.
--- NOTE | 2021-03-04 19:04 | RAD REPORT ---
EXAM DESCRIPTION: CT Chest, Abdomen, and Pelvis COMPARISON: CT abdomen and pelvis 03/04/2021 CLINICAL HISTORY: [facility] MAIN fever, leukocytosis TECHNIQUE: CT images through the chest, abdomen, and pelvis following IV contrast. Multiplanar refor mats. Automated exposure control was utilized on this examination as a dose lowering technique. CT CHEST FINDINGS: Heart and mediastinum: Heart size is normal. No lymphadenopathy. Thyroid gland: Visualized portions are normal. Lungs: Clear. Airways: No filling defects. No bronchiectasis. Pleura: No pneumothorax. No significant pleural effusion. Musculoskeletal and soft tissues: Within normal limits for age. CHEST IMPRESSION: No acute chest process. CT ABDOMEN & PELVIS FINDINGS: Liver: Normal. Gallbladder and biliary: Normal gallbladder. Unremarkable biliary tree. Pancreas: Fatty infiltration of the pancreatic head. Spleen: Normal. Kidneys and adrenal glands: Normal adrenal glands. Normal kidneys Stomach and Small Bowel: The stomach and small bowel are normal. Urinary bladder: Mild bladder wall thickening is present. Uterus and Adnexa: Normal. Colon and Appendix: There is mild wall thickening of the sigmoid colon and rectosigmoid colon. No sam dence of appendicitis. Peritoneal cavity: No ascites or free air. Retroperitoneum and lymph nodes: Normal. Vascular: Mild atherosclerosis. Musculoskeletal and soft tissues: Soft tissues are unremarkable. There are degenerative changes of th e right sacroiliac joint and of the lumbar spine.No aggressive bone lesions. No compression fractur e. ABDOMEN AND PELVIS IMPRESSION: 1. Mild bladder wall thickening is nonspecific but may be seen with c ystitis. 2. Mild sigmoid and rectosigmoid colon wall thickening may be seen with mild infectious or inflammato ry colitis. Electronically signed by: Conrad Bledsoe MD 03/04/2021 5:28 AM CDT Due to temporary technical issues with the PACS/Fluency reporting system, reports are being signed by the in house radiologists without review as a courtesy to insure prompt reporting. The interpreting radiologist is fully responsible for the content of the report.
[2021-03-05] MEDS: METRONIDAZOLE 500mg IVPB 500 MG/100 ML BAG IV SCH ×3 (00:14→16:17)
[2021-03-05] MEDS: MORPHINE 2 MG/ML SYR IV PRN ×4 (04:00→22:07)
[2021-03-05] MEDS: ACETAMINOPHEN 500 MG TAB PO PRN (04:12)
[2021-03-05] MEDS: Levofloxacin500mg IV 500 MG/100 ML BAG IV SCH (05:05)
[2021-03-05] MEDS: D5.45NS W/KCL 20MEQ 1,000 ML IV SCH ×3 (05:05→22:40)
[2021-03-05 06:09] LABS: Absolute Lymphocytes (CBC) 3.7 K/uL (0.7-4.9); Basophils % 0.7 % (0-1.3); Hematocrit 29.4 % (36.0-45.0); Lymphocytes % 18.1 % (15.3-44.8); MPV 9.9 fL (7.6-11.3); RBC Red Blood Cell Count 3.59 M/uL (3.86-4.86)
[2021-03-05] MEDS: ONDANSETRON 4 MG/2 ML VIAL IV PRN ×3 (06:11→18:32)
[2021-03-05 06:40] LABS: Bilirubin Total 0.2 mg/dL (0.2-1.0); Magnesium 1.9 mg/dL (1.8-2.4); Potassium 3.7 mmol/L (3.5-5.1); Protein, Total 6.6 g/dL (6.4-8.2)
[2021-03-05 06:41] LABS: Thyroid Stimulating Hormone 7.24 uIU/mL (0.360-3.740)
[2021-03-05] MEDS: PANTOPRAZOLE 40 MG INJ IVP SCH (08:48)
[2021-03-05] MEDS: ENOXAPARIN 40 MG/0.4 ML SQ SCH (08:48)
[2021-03-05] MEDS ORDERED: POTASSIUM CL SA 10 MEQ TAB PO ONE (09:50)
--- NOTE | 2021-03-05 09:52 | P.PN ---
Subjective Date of Service: 03/05/21 Chief Complaint: Abdominal pain, fever Subjective: Improving (Pain improving, continues with mild nausea but improved, no appetite, passing flatus, no BM) Review of Systems 10-point ROS is otherwise unremarkable Physical Examination - Vital Signs Temperature: 99.1 F Blood Pressure: 170/72 Pulse: 81 Respirations: 16 Pulse Ox (%): 95 Assessment & Plan Physician Review Additional Text: Physical Exam General: Alert, In no apparent distress, Oriented x3 HEENT: Sclerae anicteric, normal conjunctiva Respiratory: Clear to auscultation bilaterally, Normal air movement Cardiovascular: Regular rate/rhythm, Normal S1 S2 Gastrointestinal: Soft, mild generalized abdominal tenderness, no distention, no rebound Musculoskeletal: No erythema, No tenderness Integumentary: No rashes Problem list acute sigmoid colitis Hypokalemia Renal insufficiency h/o irritable bowel syndrome Hypertension Hypothyroidism GERD Chronic pain -initial CT without any acute findings, repeat CT done with contrast revealed some bladder wall thickening and sigmoid colitis. -significant leukocytosis, improving -continue empiric antibiotics, ID consulted initially due to unknown source of fever/leukocytosis -continue home medications -still with pain and nausea, continue NPO, IV fluids. No appetite -can advance diet once nausea has improved/resolved, and pain is minimal Dispo: anticipate dc home in ~48hrs Time Spent Managing Pts Care (In Minutes): 35
[2021-03-05 16:14] LABS: Urine Appearance CLEAR (Clear); Urine Bilirubin NEGATIVE (Negative); Urine Blood NEGATIVE (Negative); Urine Color YELLOW (Yellow); Urine Glucose NEGATIVE (Negative); Urine Protein NEGATIVE (Negative); Urine Specific Gravity <=1.005 (1.005-1.030); Urine Urobilinogen 0.2 mg/dL (0.2-1.0); Urine pH 7.5 (5.0-7.0)
[2021-03-05] MEDS: LOSARTAN POTASSIUM 50 MG TABLET PO SCH (16:17)
[2021-03-05 16:26] LABS: Urine Microscopic Reflex NO UMIC
[2021-03-05] MEDS: BUSPIRONE HCL 15 MG TABLET PO SCH (20:17)
[2021-03-06] MEDS: METRONIDAZOLE 500mg IVPB 500 MG/100 ML BAG IV SCH ×3 (00:57→17:32)
[2021-03-06] MEDS: ONDANSETRON 4 MG/2 ML VIAL IV PRN (02:32)
[2021-03-06] MEDS: MORPHINE 2 MG/ML SYR IV PRN ×4 (02:33→20:53)
[2021-03-06] MEDS: ACETAMINOPHEN 500 MG TAB PO PRN ×2 (04:25→09:18)
[2021-03-06] MEDS: D5.45NS W/KCL 20MEQ 1,000 ML IV SCH (05:30)
[2021-03-06] MEDS: Levofloxacin500mg IV 500 MG/100 ML BAG IV SCH (05:30)
[2021-03-06 06:06] LABS: Basophils % 1.4 % (0-1.3); Hematocrit 32.7 % (36.0-45.0); Lymphocytes % 21.8 % (15.3-44.8); RBC Red Blood Cell Count 3.95 M/uL (3.86-4.86)
[2021-03-06 06:18] LABS: Albumin 3.3 g/dL (3.4-5.0); Bilirubin Total 0.3 mg/dL (0.2-1.0); C-Reactive Protein 81.8 mg/L (<3.00); Magnesium 1.8 mg/dL (1.8-2.4); Potassium 4.1 mmol/L (3.5-5.1); Protein, Total 7.6 g/dL (6.4-8.2)
[2021-03-06] MEDS ORDERED: MAGNESIUM SULFATE 1 gm IVPB 1 GM/100 ML BAG IV ONE (09:00)
[2021-03-06] MEDS: ROPINIROLE HCL 0.25 MG TAB PO SCH ×2 (09:18→20:54)
[2021-03-06] MEDS: BUSPIRONE HCL 15 MG TABLET PO SCH ×2 (09:18→20:54)
[2021-03-06] MEDS: hydrOXYzine HCL 25 MG TAB PO PRN ×2 (09:18→21:18)
[2021-03-06] MEDS: PANTOPRAZOLE 40 MG INJ IVP SCH (09:20)
[2021-03-06] MEDS: LOSARTAN POTASSIUM 50 MG TABLET PO SCH (09:20)
[2021-03-06] MEDS: ENOXAPARIN 40 MG/0.4 ML SQ SCH (09:21)
--- NOTE | 2021-03-06 15:56 | P.PN ---
Subjective Date of Service: 03/06/21 Chief Complaint: Abdominal pain, fever Subjective: Improving (pain decreased, nausea improved. minimal appetite; itching this morning) Review of Systems 10-point ROS is otherwise unremarkable Physical Examination - Vital Signs Temperature: 97.6 F Blood Pressure: 165/75 Pulse: 64 Respirations: 16 Pulse Ox (%): 96 Assessment & Plan Physician Review Additional Text: Physical Exam General: Alert, In no apparent distress, Oriented x3 HEENT: Sclerae anicteric, normal conjunctiva Respiratory: Clear to auscultation bilaterally, Normal air movement Cardiovascular: Regular rate/rhythm, Normal S1 S2 Gastrointestinal: Soft, mild generalized abdominal tenderness, no distention, no rebound Musculoskeletal: No erythema, No tenderness Integumentary: No rashes Problem list acute sigmoid colitis Hypokalemia Renal insufficiency h/o irritable bowel syndrome Hypertension Hypothyroidism GERD Chronic pain -initial CT without any acute findings, repeat CT done with contrast revealed some bladder wall thickening and sigmoid colitis. -significant leukocytosis, improving -continue empiric antibiotics, ID consulted initially due to unknown source of f ever/leukocytosis -continue home medications -advance to clears, dc IVF if tolerating Dispo: anticipate dc home in ~24hrs Time Spent Managing Pts Care (In Minutes): 35
[2021-03-06 23:05] VITALS: O2SAT 96
[2021-03-07] MEDS: METRONIDAZOLE 500mg IVPB 500 MG/100 ML BAG IV SCH ×3 (00:55→17:00)
[2021-03-07] MEDS: MORPHINE 2 MG/ML SYR IV PRN (00:56)
[2021-03-07] MEDS: ACETAMINOPHEN 500 MG TAB PO PRN (04:21)
[2021-03-07 04:42] LABS: Albumin 3.2 g/dL (3.4-5.0); Bilirubin Total 0.3 mg/dL (0.2-1.0); Magnesium 2.3 mg/dL (1.8-2.4); Potassium 4.3 mmol/L (3.5-5.1); Protein, Total 7.5 g/dL (6.4-8.2)
[2021-03-07 04:49] LABS: Absolute Lymphocytes (CBC) 2.9 K/uL (0.7-4.9); Basophils % 0.9 % (0-1.3); Hematocrit 33.7 % (36.0-45.0); Lymphocytes % 27.5 % (15.3-44.8); MPV 10.1 fL (7.6-11.3); RBC Red Blood Cell Count 4.11 M/uL (3.86-4.86)
[2021-03-07] MEDS: ONDANSETRON 4 MG/2 ML VIAL IV PRN (04:57)
[2021-03-07] MEDS: Levofloxacin500mg IV 500 MG/100 ML BAG IV SCH (05:59)
[2021-03-07] MEDS: ROPINIROLE HCL 0.25 MG TAB PO SCH (08:43)
[2021-03-07] MEDS: PANTOPRAZOLE 40 MG INJ IVP SCH (08:43)
[2021-03-07] MEDS: ENOXAPARIN 40 MG/0.4 ML SQ SCH (08:43)
[2021-03-07] MEDS: BUSPIRONE HCL 15 MG TABLET PO SCH (08:44)
[2021-03-07] MEDS: LOSARTAN POTASSIUM 50 MG TABLET PO SCH (08:44)
[2021-03-07] MEDS: ACETAMINOPHEN 325 MG TABLET PO PRN ×2 (09:56→17:23)
[2021-03-07] MEDS: hydrOXYzine HCL 25 MG TAB PO PRN (09:56)
--- NOTE | 2021-03-07 12:24 | PN ---
Subjective: The patient is lying in bed. No new acute event. Chart reviewed. Objective: Vital Signs: Temperature 97.9, pulse 77, respirations 18, blood pressure 179/75. Lungs: Basal crackles. Heart: S1, S2. Regular. Abdomen: Mildly distended. Extremities: 1+ edema. Laboratory Data: Shows WBC 10.5 down from 13.8; hemoglobin 11.1, platelets are 245. Chemistry shows sodium 140, potassium 4.3, chloride 106, bicarb 30, BUN 5, creatinine 1, glucose 99. Globulin is 3. 2. Micro data, blood cultures are negative for last 24 hours. The patient is currently being treated with Levaquin and Flagyl. Assessment And Plan: 1.Leukocytosis, has improved, on current antibiotic regimen. 2.Acute sigmoid colitis. 3.History of irritable bowel syndrome. 4.Liver disease ascites. 5.Protein calorie malnourishment. Continue supportive care and antibiotic total course of 2 weeks. We will follow the patient as leonides PALACIOS/MODL Voice ID: [id number] Report ID: [id number]
[2021-03-07] MEDS ORDERED: HYDRALAZINE HCL 20 MG/ML VIAL IV PRN (13:01)
--- NOTE | 2021-03-07 14:38 | P.DS ---
Admission Date: 03/04/21 Discharge Date: 03/07/21 Disposition: ROUTINE DISCHARGE Discharge Condition: GOOD Reason for Admission: Abdominal pain, fever Consultations: [facility] - Dr. Shoemaker Procedures: CXR (03/04): No acute intrathoracic process suspected. CT Abd/Pelvis (03/04): No acute intra-abdominal abnormality. CT Chest/Abd/Pelvis (03/04): No acute chest process. : 1. Mild bladder wall thickening is nonspecific but may be seen with cystitis. 2. Mild sigmoid and rectosigmoid colon wall thickening may be seen with mild infectious or inflammatory colitis. Abd U/S (03/04): Negative gallbladder/ biliary tree. Mild fatty liver. Problem list acute sigmoid colitis Hypokalemia Renal insufficiency h/o irritable bowel syndrome Hypertension Hypothyroidism GERD Chronic pain Brief History of Present Illness: 70-year-old female with history of hypertension, hyperlipidemia presents emergency department for abdominal/back pain, fever. Patient reports that she has had on and off abdominal/back pain over the course of the last 1-2 months although it has been worse over the course of the last 24 hr as well as fever that started today. Patient with history of colitis in the past. Workup in the emergency department, white blood cell count 31.8 with left shift potassium 2.6 GFR 45 glucose 124 pro calcitonin 4.7 urinalysis negative for signs of infection flu, leiva virus testing negative. CT abdomen pelvis without contrast negative for any acute findings., CT chest abdomen pelvis with contrast pending for further evaluation of significant leukocytosis and fever. ED provider wishes to admit for further evaluation and management. Hospital Course: CT w/ contrast revealed bladder wall thickening and sigmoid colitis. Patient was treated with levaquin and flagyl. She had improvement of her symptoms and leukocytosis. She was afebrile and tolerating diet. She was discharged to complete 2 weeks of antibiotics. Follow up with PCP in 3-5 days. Vital Signs/Physical Exam: Physical Exam General: Alert, In no apparent distress, Oriented x3 HEENT: Sclerae anicteric, normal conjunctiva Respiratory: Clear to auscultation bilaterally, Normal air movement Cardiovascular: Regular rate/rhythm, Normal S1 S2 Gastrointestinal: Soft, nontender, no distention, no rebound Musculoskeletal: No erythema, No tenderness Integumentary: No rashes Temp Pulse Resp BP Pulse Ox 97.9 F 67 18 179/81 H 98 03/07/21 12:00 03/07/21 12:00 03/07/21 12:00 03/07/21 12:00 03/07/21 12:00 Laboratory Data at Discharge: WBC 10.50 K/uL (4.3-10.9) D 03/07/21 03:46 Hgb 11.1 g/dL (12.0-15.0) L 03/07/21 03:46 Hct 33.7 % (36.0-45.0) L 03/07/21 03:46 Plt Count 245 K/uL (152-406) 03/07/21 03:46 PT 12.0 SECONDS (9.5-12.5) 03/04/21 02:28 INR 1.04 03/04/21 02:28 APTT 28.3 SECONDS (24.3-36.9) 03/04/21 02:28 Sodium 140 mmol/L (136-145) 03/07/21 03:46 Potassium 4.3 mmol/L (3.5-5.1) 03/07/21 03:46 BUN 5 mg/dL (7-18) L 03/07/21 03:46 Creatinine 1.01 mg/dL (0.55-1.3) 03/07/21 03:46 Glucose 99 mg/dL (74-106) 03/07/21 03:46 Magnesium 2.3 mg/dL (1.8-2.4) D 03/07/21 03:46 Total Bilirubin 0.3 mg/dL (0.2-1.0) 03/07/21 03:46 AST 14 U/L (15-37) L 03/07/21 03:46 ALT 12 U/L (12-78) 03/07/21 03:46 Alkaline Phosphatase 72 U/L (45-117) 03/07/21 03:46 Triglycerides 67 mg/dL (<150) 03/05/21 05:17 Cholesterol 149 mg/dL (<200) 03/05/21 05:17 HDL Cholesterol 48 mg/dL (40-60) 03/05/21 05:17 Cholesterol/HDL Ratio 3.10 03/05/21 05:17 Amylase 48 U/L (25-115) 03/04/21 02:28 Lipase 113 U/L ([id number]) 03/04/21 02:28 Home Medications: Buspirone HCl 1 tab PO BID 03/04/21 Hydroxyzine HCl [Atarax] 25 mg PO BEDTIME PRN 03/04/21 Levothyroxine [Synthroid*] 50 mcg PO [id number] 03/04/21 Losartan Potassium 50 mg PO DAILY 03/04/21 Levofloxacin [Levaquin] 500 mg PO DAILY 12 Days #12 tablet 03/07/21 metroNIDAZOLE [Flagyl] 500 mg PO Q8H 12 Days #36 tablet 03/07/21 New Medications: metroNIDAZOLE [Flagyl] 500 mg PO Q8H 12 Days #36 tablet Levofloxacin [Levaquin] 500 mg PO DAILY 12 Days #12 tablet Diet: Macy Activity: Ad bernardo Followup: Jerry Conner MD [Primary Care Provider] - Time spent managing pt's care (in minutes): 40
[2021-03-07 16:48] VITALS: BP 146/71; TEMP 98.9
[2021-03-07] MEDS ORDERED: ENSURE HIGH PROTEIN 237 ML CAN PO SCH (21:00)
== END 2021-03-07 17:31 | disposition home or self-care (01) | DRG 392 ==
LOC: ER 01:32 → ERHOLD 05:23 → 2ND 06:00
PROVIDERS: ADMIT Hospitalist; ATTEND Hospitalist
DX: K52.89 Other specified noninfective gastroenteritis and colitis (principal); R18.8 Other ascites; E44.1 Mild protein-calorie malnutrition; G89.29 Other chronic pain; M54.9 Dorsalgia, unspecified; I10 Essential (primary) hypertension; E03.9 Hypothyroidism, unspecified; K21.9 Gastro-esophageal reflux disease without esophagitis; E87.6 Hypokalemia; N28.9 Disorder of kidney and ureter, unspecified; K76.9 Liver disease, unspecified; D72.829 Elevated white blood cell count, unspecified; E78.5 Hyperlipidemia, unspecified; Z88.0 Allergy status to penicillin; Z79.899 Other long term (current) drug therapy; Z90.49 Acquired absence of other specified parts of digestive tract; Z68.28 Body mass index [BMI] 28.0-28.9, adult; Z98.51 Tubal ligation status; Z79.890 Hormone replacement therapy; Z20.822 Contact with and (suspected) exposure to COVID-19
CPT/HCPCS: 0240U; 36415; 71045; 71260; 74176; 74177; 76705; 80048; 80053; 80061; 80076; 81003; 81015; 82150; 82550; 82553; 82947; 83605; 83690; 83735; 84132; 84145; 84439; 84443; 84484; 85025; 85610; 85652; 85730; 86140; 87040; 93005; 99285; C9113; J0360; J1650; J2270; J2405; J2765; J3475; J3480; J7030; Q9967